=== PATIENT | male | born 1930 | race Caucasian/White ===

== ENCOUNTER 2016-09-24 11:07 | Emergency (ER) | payer OTHER ==
[~2016-09-24] VITALS: Ht 167.6 cm; Wt 80.2 kg
[~2016-09-24 11:07] MED LIST: ATOR-24 PO; CLOP1TAB15 PO; DSWCR TOP; DXY100 PO; FERR325T51 PO; FLUT0.15 NAE; HYG/25 PO; LISI2.5T5 PO; MESA1.2T PO; METO25TA3 PO
[2016-09-24 11:11] VITALS: TEMP 36.4; Ht 167.6 cm; Wt 80.2 kg
[2016-09-24] MEDS ORDERED: FERR1TAB13 PO (11:50)
[2016-09-24 13:17] LABS: BASO % 0.3 %; BASO ABS # 0.02 K/uL (0-0.2); COMPLETE YES; EOS % 2.3 %; HEMATOCRIT 41.4 % (42-52); IG% 0.1 %; LYMPH % 15.9 %; LYMPH ABS # 1.12 K/uL (1.2-3.4); MEAN CORPUSCULAR HEMOGLOBIN 30.7 pg (25-34); MEAN CORPUSCULAR HGB CONC 32.4 g/dl (32-36); MEAN PLATELET VOLUME 13.4 fL (7.4-10.4); MONO % 11.2 %; NEUT % 70.2 %; PLATELET COUNT 159 K/uL (130-400); RED BLOOD COUNT 4.36 M/uL (4.7-6.1); WHITE BLOOD COUNT 7.04 K/uL (4.8-10.8)
[2016-09-24 13:27] LABS: BLOOD UREA NITROGEN 31 mg/dl (7-18); BUN/CREATININE RATIO 15.5 (10-20); CALCIUM 8.4 mg/dl (8.5-10.1); CARBON DIOXIDE 28 mmol/L (21-32); CHLORIDE 106 mmol/L (98-107); GLUCOSE 124 mg/dl (70-99); SODIUM 143 mmol/L (136-145)
--- NOTE | 2016-09-24 13:32 | DIAGNOSTIC IMAGING REPORT ---
CHEST ONE VIEW PORTABLE CLINICAL HISTORY: Left-sided chest pain. Left shoulder pain. COMPARISON STUDY: 06/10/2016 FINDINGS: The heart is enlarged. There are postsurgical changes of midline sternotomy. There is a left subclavian dual-chamber central venous pacemaker present. There is mild interstitial thickening/edema similar to the prior study. There is no lobar consolidation.[ IMPRESSION: Cardiomegaly and stable mild interstitial thickening/edema. No evidence of lobar consolidation Electronically signed by: Ross Jackman M.D. 09/24/2016 1:31 PM Dictated Date/Time: 09/24/2016 1:30 PM
[2016-09-24 13:46] VITALS: BP 129/96; PULSE 92; O2SAT 97
--- NOTE | 2016-09-24 13:53 | EMERGENCY ROOM VISIT NOTE ---
History Report prepared by Catie: Shayan Mathur Under the Supervision of: Dr. Roxy Mejía M.D. First contact with patient: 12:37 Chief Complaint: CARDIAC ASSESSMENT Stated Complaint: LEFT SHOULDER AND NECK PAIN Nursing Triage Summary: Pt states he sat down in his chair and got pain in his left shoulder and neck approx 1 hour ago. States he took nitro and pain went away. Hx bypass History of Present Illness The patient is a 85 year old male who presents to the Emergency Room with complaints of an episode of chest pain occurring 2.5 hours ago. He notes the episode lasted about 2 to 3 minutes, and resolved upon taking medications. He denies having any abdominal pain. The patient reports seeing Dr. Gomez, his traffic workforce representative, a couple days ago, and states that everything was fine then. Source of History: patient Onset: 2.5 hours ago Position: chest Symptom Intensity: episode lasting 2 to 3 minutes Quality: other (chest pain) Timing: other (episode) Modifying Factors (Relieving): other (medications taken by patient) Associated Symptoms: No abdominal pain Review of Systems See HPI for pertinent positives & negatives. A total of 10 systems reviewed and were otherwise negative. Past Medical & Surgical Medical Problems: (1) CKD (chronic kidney disease) stage 3, GFR 30-59 ml/min (2) Congestive Heart Failure (3) Coron Atheroscler Nos Type Vessel, [place] Or Graft (4) CVA (cerebral vascular accident) (5) Diab Annelise Wo Compl, Type Ii Or Unspec Type, Not Uncntrld (6) Diabetes mellitus type II, controlled (7) Dyslipidemia (8) History of bladder cancer (9) History Of Tobacco Use (10) HTN (hypertension) (11) Hyperlipidemia Nec/Nos (12) Hypertension Nos (13) Hypertrophy Of Prostate (Benign) (14) Mal Joni Bladder-Post (15) Pacemaker (16) Paroxysmal atrial fibrillation Surgical Problems: (1) Aortocoronary Bypass (2) H/O cataract removal with insertion of prosthetic lens (3) History of arthroplasty of left knee (4) History of bladder surgery (5) History of inguinal hernia repair (6) History of open reduction and internal fixation (ORIF) procedure (7) History of tonsillectomy (8) Knee Joint Replacement Status (9) S/P AVR (10) S/P CABG x 4 (11) S/P rotator cuff repair (12) S/P TURP (status post transurethral resection of prostate) Family History Insignificant due to advanced age Social History Smoking Status: Former Smoker Alcohol Use: none Drug Use: none Marital Status: Occupation Status: retired Current/Historical Medications Scheduled Amiodarone Hcl (Cordarone), 200 MG PO BID Aspirin (Aspirin Ec), 81 MG PO DAILY Atorvastatin (Lipitor), 40 MG PO DAILY Chlorthalidone ([place]), 25 MG PO QAM Desonide 0.05% ([place]owen 0.05%), 1 APPLN TOP BID Ferrous Sulfate (Kp Ferrous Sulfate), 325 MG PO BID Hydrocortisone (Hydrocortisone), 1 APPLN TOP BID Lisinopril (Lisinopril), 2.5 MG PO DAILY Metoprolol Succ (Toprol Xl) (Toprol-Xl), 12.5 MG PO DAILY Scheduled PRN Acetaminophen (Tylenol), 650 MG PO Q4 PRN for Pain Alprostadil (Vasodilator) ([place]), 1 SUPP UR UD PRN for erectile dysfunction Nitroglycerin (Nitrostat), 0.4 MG UT UD PRN for Chest Pain Allergies Coded Allergies: Penicillins (Verified Allergy, Mild, ITCHING, 09/24/16) Physical Exam Vital Signs Date Time Temp Pulse Resp B/P Pulse Ox O2 Delivery O2 Flow Rate FiO2 09/24/16 13:46 92 18 129/96 97 09/24/16 13:07 92 22 131/78 93 Room Air 09/24/16 11:34 96 09/24/16 11:16 94 Room Air 09/24/16 11:11 36.4 99 19 129/77 94 Room Air Pain Rating (0-10): 0 Physical Exam CONSTITUTIONAL: Patient is in no acute distress. HEENT: No icterus, moist mucous membranes NECK: No meningismus, trachea is midline. CARDIOVASCULAR: Regular rate, normal perfusion RESPIRATORY: Unlabored breathing. Clear to auscultation. GASTROINTESTINAL: Non-tender GENITOURINARY: No flank tenderness MUSCULOSKELETAL: Full range of motion NEUROLOGIC: No acute gross focal deficits. PSYCHIATRIC: Normal affect SKIN: Normal for ethnicity. Medical Decision & Procedures ER Provider Diagnostic Interpretation: X-ray results as stated below per interpretation by me and the radiologist. CHEST ONE VIEW PORTABLE FINDINGS: The heart is enlarged. There are postsurgical changes of midline sternotomy. There is a left subclavian dual-chamber central venous pacemaker present. There is mild interstitial thickening/edema similar to the prior study. There is no lobar consolidation. IMPRESSION: Cardiomegaly and stable mild interstitial thickening/edema. No evidence of lobar consolidation Electronically signed by: Ross Jackman M.D. 09/24/2016 1:31 PM Dictated Date/Time: 09/24/2016 1:30 PM Laboratory Results 09/24/16 11:30 Red Blood Count 4.36, Mean Corpuscular Volume 95.0, Mean Corpuscular Hemoglobin 30.7, Mean Corpuscular Hemoglobin Concent 32.4, Mean Platelet Volume 13.4, Neutrophils (%) (Auto) 70.2, Lymphocytes (%) (Auto) 15.9, Monocytes (%) (Auto) 11.2, Eosinophils (%) (Auto) 2.3, Basophils (%) (Auto) 0.3, Neutrophils # (Auto ) 4.94, Lymphocytes # (Auto) 1.12, Monocytes # (Auto) 0.79, Eosinophils # (Auto ) 0.16, Basophils # (Auto) 0.02 09/24/16 11:30 Test 09/24/16 11:30 White Blood Count 7.04 K/uL (4.8-10.8) Red Blood Count 4.36 M/uL (4.7-6.1) Hemoglobin 13.4 g/dL (14.0-18.0) Hematocrit 41.4 % (42-52) Mean Corpuscular Volume 95.0 fL (80-100) Mean Corpuscular Hemoglobin 30.7 pg (25-34) Mean Corpuscular Hemoglobin Concent 32.4 g/dl (32-36) Platelet Count 159 K/uL (130-400) Mean Platelet Volume 13.4 fL (7.4-10.4) Neutrophils (%) (Auto) 70.2 % Lymphocytes (%) (Auto) 15.9 % Monocytes (%) (Auto) 11.2 % Eosinophils (%) (Auto) 2.3 % Basophils (%) (Auto) 0.3 % Neutrophils # (Auto) 4.94 K/uL (1.4-6.5) Lymphocytes # (Auto) 1.12 K/uL (1.2-3.4) Monocytes # (Auto) 0.79 K/uL (0.11-0.59) Eosinophils # (Auto) 0.16 K/uL (0-0.5) Basophils # (Auto) 0.02 K/uL (0-0.2) RDW Standard Deviation 51.6 fL (36.4-46.3) RDW Coefficient of Variation 15.0 % (11.5-14.5) Immature Granulocyte % (Auto) 0.1 % Immature Granulocyte # (Auto) 0.01 K/uL (0.00-0.02) Anion Gap 9.0 mmol/L (3-11) Est Creatinine Clear Calc Drug Dose 25.9 ml/min Estimated GFR () 33.8 Estimated GFR (Non- 29.1 BUN/Creatinine Ratio 15.5 (10-20) Calcium Level 8.4 mg/dl (8.5-10.1) Troponin I < 0.015 ng/ml (0-0.045) Labs reviewed by ED physician. ED Course 1245: Past medical records reviewed. The patient was evaluated in room B4B. A complete history and physical examination was performed. 1340: Upon reexamination the patient is doing well. I discussed results and treatment plan with the patient. He verbalizes agreement and understanding. The patient is ready for discharge. Medical Decision Differentials include musculoskeletal pain, and heart disease. 85-year-old presents into the emergency room for less than 10 minutes of left- sided chest discomfort radiating to his neck now completely resolved. He has a history of coronary artery disease a low he saw his traffic workforce representative for routine appointment earlier this week which time everything was felt to be normal. Chest x-ray, EKG and troponin within normal limits. Patient was comfortable and remained without any symptoms during his emergency course prior to discharge. Impression Primary Impression: Precordial chest pain Scribe Attestation The scribe's documentation has been prepared under my direction and personally reviewed by me in its entirety. I confirm that the note above accurately reflects all work, treatment, procedures, and medical decision making performed by me. Departure Information Dispostion Home / Self-Care Referrals Luis Gomez D.O. (PCP) Forms IMPORTANT VISIT INFORMATION Patient Instructions Chest Pain - [facility], [facility]
[2016-12-17] MEDS ORDERED: NTRGSL/4 UT (06:56)
[2016-12-17] MEDS ORDERED: HYDCR25 TOP (06:59)
[2016-12-17] MEDS ORDERED: ASPI81TA28 PO (07:01)
[2016-12-17] MEDS ORDERED: FERR325T PO (15:10)
== END 2016-09-24 13:47 | disposition home or self-care (01) ==
LOC: C.EDB 11:09
DX: R07.2 Precordial pain (principal); I12.9 Hypertensive chronic kidney disease with stage 1 through stage 4 chronic kidney disease, or unspecified chronic kidney disease; N18.3 Chronic kidney disease, stage 3 (moderate); I25.10 Atherosclerotic heart disease of native coronary artery without angina pectoris; I48.0 Paroxysmal atrial fibrillation; E11.22 Type 2 diabetes mellitus with diabetic chronic kidney disease; E78.5 Hyperlipidemia, unspecified; Z86.73 Personal history of transient ischemic attack (TIA), and cerebral infarction without residual deficits; Z85.51 Personal history of malignant neoplasm of bladder; Z87.891 Personal history of nicotine dependence; Z95.1 Presence of aortocoronary bypass graft; Z90.89 Acquired absence of other organs; Z96.659 Presence of unspecified artificial knee joint; Z90.79 Acquired absence of other genital organ(s); Z98.890 Other specified postprocedural states; Z79.82 Long term (current) use of aspirin; Z79.899 Other long term (current) drug therapy

== ENCOUNTER 2016-11-04 19:22 | Inpatient (IN) | payer OTHER ==
[~2016-11-04] VITALS: Ht 167.6 cm; Wt 74.6 kg
[~2016-11-04 19:22] MED LIST changes: -CLOP1TAB15 PO; -DXY100 PO; +FERR1TAB13 PO; -FERR325T51 PO; -FLUT0.15 NAE; -MESA1.2T PO
--- NOTE | 2016-11-04 20:20 | DIAGNOSTIC IMAGING REPORT ---
CHEST ONE VIEW PORTABLE CLINICAL HISTORY: Weakness COMPARISON STUDY: September 24, 2016 FINDINGS: The heart is enlarged. There is a left subclavian dual-chamber central venous pacemaker present. There is mild interstitial thickening. There is no focal pulmonary consolidation. There are no significant pleural effusions.[ IMPRESSION: Cardiomegaly and mild interstitial thickening/edema. No evidence of focal pulmonary consolidation Electronically signed by: Ross Jackman M.D. 11/04/2016 8:18 PM Dictated Date/Time: 11/04/2016 8:17 PM
[2016-11-04 20:53] LABS: MEAN CORPUSCULAR HGB CONC 32.4 g/dl (32-36)
[2016-11-04 21:01] LABS: HEMATOCRIT 41.4 % (42-52); MEAN CELL VOLUME 92.4 fL (80-100); MEAN CORPUSCULAR HEMOGLOBIN 29.9 pg (25-34); RED BLOOD COUNT 4.48 M/uL (4.7-6.1); WHITE BLOOD COUNT 6.39 K/uL (4.8-10.8)
[2016-11-04 21:04] LABS: INR 2.7 (0.9-1.1); PARTIAL THROMBOPLASTIN RATIO 1.3; PROTHROMBIN TIME (PATIENT) 30.3 SECONDS (9.0-12.0)
[2016-11-04 21:12] LABS: BUN/CREATININE RATIO 20.3 (10-20); CREATININE 2.3 mg/dl (0.60-1.40); MAGNESIUM 2.1 mg/dl (1.8-2.4); POTASSIUM 3.6 mmol/L (3.5-5.1)
[2016-11-04 21:22] LABS: CKMB/CK RATIO 2.7 (0-3.0); THYROID STIMULATING HORMONE 5.22 uIu/ml (0.300-4.500)
[2016-11-04] MEDS ORDERED: FURO-85 PO (21:27)
[2016-11-04] MEDS ORDERED: POTA20TA16 PO (21:27)
[2016-11-04] MEDS ORDERED: WARF5TAB7 PO (21:27)
[2016-11-04 21:30] LABS: BASO % 0.2 %; BASO ABS # 0.01 K/uL (0-0.2); COMPLETE YES; EOS % 3.1 %; IG% 0.2 %; LYMPH % 16.3 %; LYMPH ABS # 1.04 K/uL (1.2-3.4); MEAN PLATELET VOLUME 13.6 fL (7.4-10.4); MONO % 11.6 %; NEUT % 68.6 %; PLATELET COUNT 140 K/uL (130-400); PLT ESTIMATE NORMAL
[2016-11-04] MEDS ORDERED: POTASSIUM CHLORIDE 10 MEQ TABCR PO STA (21:48)
[2016-11-04] MEDS ORDERED: FUROSEMIDE INJ 60 MG in SYRINGE 0 ML IV STA (22:20)
[2016-11-04] MEDS ORDERED: FUROSEMIDE 40 MG/4 ML VIAL IV STA (22:27)
[2016-11-04] MEDS ORDERED: AMIODARONE 200 MG TAB PO STA (22:28)
[2016-11-04] MEDS ORDERED: NITROGLYCERIN 0.4 MG SL PER TAB CHARGE SL PRN (22:30)
[2016-11-04] MEDS ORDERED: ACETAMINOPHEN 325 MG TAB PO PRN (22:30)
[2016-11-04] MEDS ORDERED: TRAMADOL HCL 50 MG TAB PO PRN (22:30)
[2016-11-04] MEDS ORDERED: ONDANSETRON INJ 2 MG/ML 2 ML VIAL IV PRN (22:30)
[2016-11-04] MEDS ORDERED: NITROGLYCERIN 0.4 MG SL PER TAB CHARGE UT PRN (22:30)
[2016-11-04] MEDS ORDERED: LEVALBUTEROL/IPRATROPIUM NEB INH PRN (22:30)
[2016-11-04] MEDS ORDERED: HYDROmorphone INJ 0.5 MG/0.5 ML SYR IV PRN (22:30)
[2016-11-04 22:41] LABS: URINE APPEARANCE CLEAR (CLEAR); URINE BILIRUBIN NEG (NEG); URINE COLOR YELLOW; URINE NITRITE NEG (NEG); URINE SPECIFIC GRAVITY 1.014 (1.000-1.030); UROBILINOGEN NEG (NEG); ZZUR CULT IF INDIC CLEAN CATCH NO
[2016-11-04 22:44] LABS: MANUAL MICROSCOPIC REQUIRED? NO; REVIEW REQ? NO
[2016-11-04] MEDS ORDERED: LEVALBUTEROL 1.25MG/0.5ML NEB INH PRN (23:00)
[2016-11-04] MEDS ORDERED: IPRATROPIUM BROMIDE NEB SOLN 0.02% 2.5 ML VIAL INH PRN (23:00)
[2016-11-05] VITALS (8 sets, daily range): BP systolic 109–138; BP diastolic 66–85; PULSE 70–91; TEMP 36.3–36.7; O2SAT 91–97; Ht 167.6 cm; Wt 74.6 kg
--- NOTE | 2016-11-05 00:33 | HISTORY & PHYSICAL EXAMINATION ---
DATE OF ADMISSION: 11/04/2016 PRIMARY CARE DOCTOR: Dr. Bañuelos History was obtained from the patient's records. CHIEF COMPLAINT: Sent by heart doctor. HISTORY OF PRESENT ILLNESS: Medical history is significant for chronic diastolic heart failure (EF 55-60%), CAD status post CABG, history of TAVR, atrial fibrillation/sick sinus syndrome sp PPM, history of CVA as per records, BPH status post surgery, bladder cancer status post surgery, chronic renal insufficiency (baseline creatinine of 1.7-2), chronic anemia (baseline hemoglobin of 10), past tobacco abuse, history of ulcerative colitis as per records, DM2, diet controlled. chronic thrombocytopenia. Recent confinement in May 2016 for viral URTI. As per records, in the last 2 weeks, the patient is developing lower extremity swelling, weight gain and some pulmonary congestion. Low dose Lasix was initiated and tolerated. PX accompanied by friend to the [employer] admin's office today. Px's friend notes some dyspnea on exertion. Patient was complaining of intermittent chest pain which the patient currently denies. Persistent bilateral leg swelling. Concerns about confusion w/ medications in the last few weeks. Patient lives alone. Home health to be arranged. Claims to be compliant with home meds and denies dietary indiscretion. Patient was sent to the Emergency Room for IV diuresis and cardiac work-up. . MEDICAL HISTORY: As above. A 2D echo from May 2016 showed normal LV size, LVH, EF 55-60% SURGERIES: He has had CABG, bladder tumor surgery, TAVR, PPM, tonsillectomy, knee surgery, shoulder surgery and hernia surgery. HOME MEDICATIONS: Include; ferrous sulfate, Lasix, hydrocortisone, lisinopril, Lialda Topral XL, Nitrostat, potassium Coumadin, amiodarone, aspirin, Tylenol, Lipitor ALLERGIES: TO PENICILLIN. FAMILY HISTORY: Heart disease. PERSONAL AND SOCIAL HISTORY: Past tobacco abuse. No chronic intake of alcoholic beverages. production trainer REVIEW OF SYSTEMS: As per HPI, all other ROS negative. PHYSICAL EXAMINATION: VITAL SIGNS: Blood pressure was noted to be 122/72 pulse rate 88, respiratory rate 24, temperature 36.6 and sats 92 on room air. GENERAL: Noted to be comfortable, in no respiratory distress, occasionally speaks in phrases to catch his breath. SKIN: Pallor. HEENT: Pale palpebral conjunctivae. Dry mucosa. NECK: Short neck. JVD not assessed. CHEST: Decreased breath sounds. HEART: Regular rate and rhythm. ABDOMEN: Soft. EXTREMITIES: Bilateral lower extremity edema, no tenderness. NEUROLOGIC: No gross focality. LABORATORIES: Hemoglobin was noted to be 13.4, hematocrit 41, white cell count 6.3, platelets 140. Sodium 140 chloride 102, CO2 30, BUN 47 creatinine 2.3, glucose 121. Troponin 0.2. INR was noted to be 2.7. Hg A1c 6.3 (05/2016) EKG; afib with PVCs. Chest x-ray; some congestion. ASSESSMENT: 1. Decompensated heart failure subacute symptoms after outpatient diuretic dose adjustment compliance problems 2 to functional disability versus beginning cardiorenal syndrome. (ARF on CRI) 2. Hypertension, stable 3. Sick sinus syndrome status post pacemaker. rate controlled AF/paced rhythm at the ER, INR therapeutic. 4. CAD sp CABG 5. hx bioprosthetic TAVR 6. Bladder cancer status post surgery. 7. DM2, diet controlled, well controlled as recent HgA1c on file px actually disputes diagnosis from outpx records 8. Past tobacco abuse. 9, hx CVA as per records 10. chronic thrombocytopenia PLAN: PCU. Lasix one dose now. Follow renal function. continue home BB strict IOs, daily weights, CHF education Further eval/mx as per Cardiology May need Nephrology consultation during admission if w/ progression of kidney dysfunction ISS BG goal 140-180 px due for HgA1c check PT/OT evaluation. DVT prophylaxis, Coumadin. INR 2-3. Full code. Patient requests that his refoca-ik-ajp, Ms. Kristie Bills be updated for important decisions regarding his care. ISAAC
[2016-11-05] MEDS ORDERED: POTASSIUM CHLORIDE 10 MEQ TABCR PO ONE (01:00)
--- NOTE | 2016-11-05 01:59 | EMERGENCY ROOM VISIT NOTE ---
History Report prepared by Catie: Denilson Deluna Under the Supervision of: Dr. Melo Estrada M.D. First contact with patient: 19:57 Chief Complaint: SWELLING TO EXTREMITY Stated Complaint: B/L LEG SWELLING, CHECK FOR INFECTION History of Present Illness The patient is a 85 year old male who presents to the Emergency Room with complaints of constant lower extremity swelling for the past few days. The patient states that he was at Dr. Gomez, Cardiology, and he wanted the patient to come in for evaluation. The patient has a history of a pacemaker, strokes, and he is on Coumadin. The patient states that he is planning for cardioversion. Additionally, the patient's friend states that when the patient bends over or exerts himself, his breathing is worsened. The patient denies taking any oxygen at home. Pt denies LOC, headache, fevers, chills, diaphoresis , visual changes, neck pain, chest pain, nausea, vomiting, abdominal pain, back pain, melena, hematochezia, urinary symptoms, numbness, weakness, lymphadenopathy, rash, or other complaints. Source of History: patient, friend Onset: few days ago Position: leg (bilateral) Quality: other (swelling) Timing: constant Modifying Factors (Worsening): exertion Associated Symptoms: + SOB Review of Systems See HPI for pertinent positives and negatives. A total of ten systems were reviewed and were otherwise negative. Past Medical & Surgical Medical Problems: (1) CHF exacerbation (2) CKD (chronic kidney disease) stage 3, GFR 30-59 ml/min (3) Congestive Heart Failure (4) Coron Atheroscler Nos Type Vessel, [place] Or Graft (5) CVA (cerebral vascular accident) (6) Diab Annelise Wo Compl, Type Ii Or Unspec Type, Not Uncntrld (7) Diabetes mellitus type II, controlled (8) Dyslipidemia (9) History of bladder cancer (10) History Of Tobacco Use (11) HTN (hypertension) (12) Hyperlipidemia Nec/Nos (13) Hypertension Nos (14) Hypertrophy Of Prostate (Benign) (15) [place]i Bladder-Post (16) Pacemaker (17) Paroxysmal atrial fibrillation Surgical Problems: (1) Aortocoronary Bypass (2) H/O cataract removal with insertion of prosthetic lens (3) History of arthroplasty of left knee (4) History of bladder surgery (5) History of inguinal hernia repair (6) History of open reduction and internal fixation (ORIF) procedure (7) History of tonsillectomy (8) Knee Joint Replacement Status (9) S/P AVR (10) S/P CABG x 4 (11) S/P rotator cuff repair (12) S/P TURP (status post transurethral resection of prostate) Family History Insignificant due to advanced age Social History Smoking Status: Never Smoker Alcohol Use: none Drug Use: none Marital Status: Occupation Status: retired Current/Historical Medications Scheduled Amiodarone Hcl (Cordarone), 200 MG PO BID Aspirin (Aspirin Ec), 81 MG PO DAILY Atorvastatin (Lipitor), 40 MG PO DAILY Desonide 0.05% ([place] 0.05%), 1 APPLN TOP BID Ferrous Sulfate (Kp Ferrous Sulfate), 325 MG PO BID Furosemide (Lasix), 40 MG PO DAILY Hydrocortisone (Hydrocortisone), 1 APPLN TOP BID Lisinopril (Lisinopril), 2.5 MG PO DAILY Mesalamine (Lialda), 1.2 GM PO DIRECTED Metoprolol Succ (Toprol Xl) (Toprol-Xl), 50 MG PO BID Potassium Ext Rel (Klor-Con), 20 MEQ PO DAILY Warfarin Sod ([place]), 2.5 MG PO DAILY Scheduled PRN Acetaminophen (Tylenol), 650 MG PO Q4 PRN for Pain Alprostadil (Vasodilator) ([place]), 1 SUPP UR UD PRN for erectile dysfunction Nitroglycerin (Nitrostat), 0.4 MG UT UD PRN for Chest Pain Allergies Coded Allergies: Penicillins (Verified Allergy, Mild, ITCHING, 11/04/16) Physical Exam Vital Signs Date Time Temp Pulse Resp B/P Pulse Ox O2 Delivery O2 Flow Rate FiO2 11/04/16 21:11 90 20 126/76 94 Room Air 11/04/16 20:37 93 11/04/16 20:37 93 Room Air 11/04/16 20:25 83 11/04/16 19:37 36.6 88 24 126/72 92 Room Air Physical Exam GENERAL: Awake, alert, tired-appearing, in no distress HENT: Normocephalic, atraumatic. Oropharynx unremarkable. EYES: Normal conjunctiva. Sclera non-icteric. NECK: Supple. No nuchal rigidity. FROM. No JVD. RESPIRATORY: Clear to auscultation. CARDIAC: Regular rate, Irregular rhythm. Extremities warm and well perfused. Pulses equal. ABDOMEN: Soft, non-distended. No tenderness to palpation. No rebound or guarding. No masses. RECTAL: Deferred. MUSCULOSKELETAL: Chest examination reveals no tenderness. The back is symmetrical on inspection without obvious abnormality. There is no CVA tenderness to palpation. No joint edema. LOWER EXTREMITIES: 3+ bilateral lower extremity edema. No discoloration. NEURO: Normal sensorium. No sensory or motor deficits noted. SKIN: No rash or jaundice noted. Medical Decision & Procedures ER Provider Diagnostic Interpretation: X-ray: Per my interpretation, radiologist review. CHEST ONE VIEW PORTABLE CLINICAL HISTORY: Weakness COMPARISON STUDY: September 24, 2016 FINDINGS: The heart is enlarged. There is a left subclavian dual-chamber central venous pacemaker present. There is mild interstitial thickening. There is no focal pulmonary consolidation. There are no significant pleural effusions.[ IMPRESSION: Cardiomegaly and mild interstitial thickening/edema. No evidence of focal pulmonary consolidation Electronically signed by: Ross Jackman M.D. 11/04/2016 8:18 PM Dictated Date/Time: 11/04/2016 8:17 PM Laboratory Results 11/04/16 20:38 Red Blood Count 4.48, Mean Corpuscular Volume 92.4, Mean Corpuscular Hemoglobin 29.9, Mean Corpuscular Hemoglobin Concent 32.4, Mean Platelet Volume 13.6, Neutrophils (%) (Auto) 68.6, Lymphocytes (%) (Auto) 16.3, Monocytes (%) (Auto) 11.6, Eosinophils (%) (Auto) 3.1, Basophils (%) (Auto) 0.2, Neutrophils # (Auto ) 4.39, Lymphocytes # (Auto) 1.04, Monocytes # (Auto) 0.74, Eosinophils # (Auto ) 0.20, Basophils # (Auto) 0.01 11/04/16 20:38 Test 11/04/16 20:38 White Blood Count 6.39 K/uL (4.8-10.8) Red Blood Count 4.48 M/uL (4.7-6.1) Hemoglobin 13.4 g/dL (14.0-18.0) Hematocrit 41.4 % (42-52) Mean Corpuscular Volume 92.4 fL (80-100) Mean Corpuscular Hemoglobin 29.9 pg (25-34) Mean Corpuscular Hemoglobin Concent 32.4 g/dl (32-36) Platelet Count 140 K/uL (130-400) Mean Platelet Volume 13.6 fL (7.4-10.4) Neutrophils (%) (Auto) 68.6 % Lymphocytes (%) (Auto) 16.3 % Monocytes (%) (Auto) 11.6 % Eosinophils (%) (Auto) 3.1 % Basophils (%) (Auto) 0.2 % Neutrophils # (Auto) 4.39 K/uL (1.4-6.5) Lymphocytes # (Auto) 1.04 K/uL (1.2-3.4) Monocytes # (Auto) 0.74 K/uL (0.11-0.59) Eosinophils # (Auto) 0.20 K/uL (0-0.5) Basophils # (Auto) 0.01 K/uL (0-0.2) RDW Standard Deviation 49.7 fL (36.4-46.3) RDW Coefficient of Variation 14.6 % (11.5-14.5) Immature Granulocyte % (Auto) 0.2 % Immature Granulocyte # (Auto) 0.01 K/uL (0.00-0.02) Platelet Estimate NORMAL Prothrombin Time 30.3 SECONDS (9.0-12.0) Prothromb Time International Ratio 2.7 (0.9-1.1) Activated Partial Thromboplast Time 34.2 SECONDS (21.0-31.0) Partial Thromboplastin Ratio 1.3 Anion Gap 9.0 mmol/L (3-11) Est Creatinine Clear Calc Drug Dose 23.2 ml/min Estimated GFR () 28.5 Estimated GFR (Non- 24.6 BUN/Creatinine Ratio 20.3 (10-20) Calcium Level 8.0 mg/dl (8.5-10.1) Magnesium Level 2.1 mg/dl (1.8-2.4) Total Bilirubin 0.5 mg/dl (0.2-1) Direct Bilirubin 0.2 mg/dl (0-0.2) Aspartate Amino Transf (AST/SGOT) 47 U/L (15-37) Alanine Aminotransferase (ALT/SGPT) 64 U/L (12-78) Alkaline Phosphatase 152 U/L (45-117) Total Creatine Kinase 110 U/L (39-308) Creatine Kinase MB 3.0 ng/ml (0.5-3.6) Creatine Kinase MB Ratio 2.7 (0-3.0) Troponin I 0.022 ng/ml (0-0.045) Pro-B-Type Natriuretic Peptide 9116 pg/ml (0-1800) Total Protein 7.0 gm/dl (6.4-8.2) Albumin 3.1 gm/dl (3.4-5.0) Thyroid Stimulating Hormone (TSH) 5.220 uIu/ml (0.300-4.500) Free Thyroxine 1.44 ng/dl (0.80-1.60) Laboratory results reviewed by me Medications Administered Medications (Trade) Dose Ordered Sig/Avinash Route Start Time Stop Time Status Last Admin Dose Admin Potassium Chloride (Klor-Con M10) 40 meq NOW STAT PO 11/04/16 21:48 11/04/16 22:03 DC 11/04/16 22:33 40 MEQ ECG Indication: other (Lower extremity) Rate (beats per minute): 81 Rhythm: atrial fibrillation, other (Paced complexes) Findings: RBBB, no acute ischemic change ED Course 2028: The patient was evaluated in room A3. A complete history and physical exam was performed. 2144: I discussed the patient's case with Dr. Garner. He is going to evaluate the patient for further treatment 2152: I reevaluated the patient, and he was resting comfortably Medical Decision Triage Nursing notes reviewed. The patient's presentation and history were concerning for dyspnea and leg swelling. Etiologies such as CHF, cardiac ischemia, pulmonary embolism, pneumothorax, musculoskeletal, infections, gastrointestinal, pneumonia, COPD, reactive airway disease,as well as others were entertained. The patient was evaluated. He was in good spirits. Blood work revealed a mild anemia and elevated creatinine of 2.3. BNP was markedly elevated concerning for CHF. His cardiac markers were negative. ECG reveals A. fib. Chest imaging is as above. Consultation was made with internal medicine for further management. The chart was completed utilizing [employer] voice recognition software. Grammatical errors, random word insertions, pronoun errors, and incomplete sentences are an occasional consequence of this system due to software limitations, ambient noise, and hardware issues. Any formal questions or concerns about the content, text, or information contained within the body of this dictation should be directly addressed to the physician for clarification. Consults Time Called: 2123 Consulting Physician: Dr. Garner Returned Call: 2144 I discussed the patient's case with Dr. Garner. He is going to evaluate the patient for further treatment Impression Primary Impression: Dyspnea Additional Impressions: Lower extremity edema CHF exacerbation Scribe Attestation The scribe's documentation has been prepared under my direction and personally reviewed by me in its entirety. I confirm that the note above accurately reflects all work, treatment, procedures, and medical decision making performed by me. Departure Information Dispostion Being Evaluated By Hospitalist Referrals Luis Gomez D.O. (PCP) Patient Instructions [facility] Problem Qualifiers
[2016-11-05] MEDS ORDERED: DEXTROSE 50% 50 ML SYR IV PRN (04:00)
[2016-11-05] MEDS ORDERED: GLUCOSE 40% GEL 15 GM TUBE PO PRN (04:00)
[2016-11-05] MEDS ORDERED: GLUCOSE 10 TABS/TUBE PO PRN (04:00)
[2016-11-05] MEDS ORDERED: GLUCAGON FOR INJ 1 MG VIAL SQ PRN (04:00)
[2016-11-05] MEDS: INSULIN ASPART 100 UNITS/ML 3 ML PEN SC SCH ×4 (07:00→20:42)
[2016-11-05 07:16] LABS: MEAN CORPUSCULAR HGB CONC 32.1 g/dl (32-36)
[2016-11-05 07:21] LABS: INR 2.9 (0.9-1.1); PROTHROMBIN TIME (PATIENT) 32.4 SECONDS (9.0-12.0)
[2016-11-05 07:44] LABS: BUN/CREATININE RATIO 23.8 (10-20); CALCIUM 8.8 mg/dl (8.5-10.1); CREATININE 2.1 mg/dl (0.60-1.40); POTASSIUM 3.8 mmol/L (3.5-5.1)
[2016-11-05 07:46] LABS: HEMATOCRIT 41.7 % (42-52); MEAN CELL VOLUME 93.1 fL (80-100); MEAN CORPUSCULAR HEMOGLOBIN 29.9 pg (25-34); RED BLOOD COUNT 4.48 M/uL (4.7-6.1); WHITE BLOOD COUNT 5.88 K/uL (4.8-10.8)
[2016-11-05] MEDS: ASPIRIN 81 MG ECTAB PO SCH (08:27)
[2016-11-05] MEDS: METOPROLOL SUCC 25MG EXT REL TAB PO SCH ×2 (08:28→20:36)
[2016-11-05] MEDS: FERROUS SULFATE 325 MG TAB PO SCH ×2 (08:28→20:35)
[2016-11-05] MEDS: ATORVASTATIN 20 MG TAB PO SCH (08:28)
[2016-11-05] MEDS: AMIODARONE 200 MG TAB PO SCH ×2 (08:28→20:36)
[2016-11-05 09:11] LABS: ESTIMATED AVERAGE GLUCOSE 146 mg/dl; HA1C FLAG Normal (Normal)
--- NOTE | 2016-11-05 09:14 | Clinical Documentation Query ---
NICHELLE Hernandez : CLINICAL DOCUMENTATION QUERY Patient is an 85 year old male admitted for the evaluation and treatment of "decompensated heart failure". Noted PMH includes diastolic heart failure, with an echocardiogram from 06/02 demonstrating normal biventricular systolic function. Please explicitly specify the type of acute heart failure in your patient. This cannot be assumed by a professional associate programmer analyst to be an exacerbation of a chronic condition. In your clinical opinion is this patient being managed for: (x ) Acute on chronic diastolic congestive heart failure ( ) Other explanation of clinical findings (Please Explain) ( ) Unable to determine (Please Define) ( ) Need to Discuss ( ) Not Agree The medical record reflects the following clinical findings, treatment, and risk factors. Clinical Indicators: As above Treatment: PCU with telemetry, IV Lasix, cardiology consultation, serial chemistries, I/O, daily weights, CHF education. Risk Factors: Age, DM, hypertension, CAD, arrhythmia Please clarify and document your clinical opinion in the progress notes and discharge summary. Terms such as "probable", "suspected", "likely", "questionable", "possible", or "still to be ruled out" are acceptable. IF IN AGREEMENT, YOU MUST DOCUMENT ABOVE DIAGNOSTIC STATEMENT IN DAILY PROGRESS NOTES AND DISCHARGE SUMMARY. This document is not part of the patient's record. Thank You, Shayan Massey, MOLLY [phone]
--- NOTE | 2016-11-05 10:28 | Progress Note ---
Medicine Progress Note Date & Time of Visit: Nov 05, 2016 at 10:11. Subjective 85 yo M with a significant h/o heart disease and heart failure admitted to the hospital as a direct admission from the Cardiology office for stricter management of acute HF and anticoagulation in preparation for poss ANANDA/CV for new onset afib/flutter. Last 24: -Lasix 60mg IV x once last night with 1700cc out overnight -Denies SOB, CP -reports some swelling in his legs but denies any weight gain at home -states his baseline dry weight is 161 lbs. Objective Last 8 Hrs Date Time Temp Pulse Resp B/P Pulse Ox O2 Delivery O2 Flow Rate FiO2 11/05/16 08:00 Room Air 11/05/16 07:43 36.7 77 18 125/76 97 Room Air 11/05/16 04:00 36.6 89 18 124/73 93 Room Air 11/05/16 04:00 Room Air Physical Exam: GEN: WNWD, in no acute distress, alert and appropriate, no conversational dyspnea. HEENT: NC/AT, pupils are equal, normal sclerae CARDIO: reg rate, S1/2 heard without m/g/r, +external jugular venous distension LUNGS: CTA bilaterally, no crackles, rales or wheezes, good diaphragmatic excursion +diminished breath sounds bilaterally ABD: soft, non-tender, non-distended, no rebound or guarding, BS+ EXTREMITY: 2+ pitting edema to mid shins bilaterally, warm and well perfused. NEURO: CN 2-12 grossly intact, sensation intact throughout, no gross focal deficits. MUSC: moves all extremities equally SKIN: warm and dry Laboratory Results: 11/05/16 06:52 Red Blood Count 4.48, Mean Corpuscular Volume 93.1, Mean Corpuscular Hemoglobin 29.9, Mean Corpuscular Hemoglobin Concent 32.1 11/05/16 06:52 Test 11/04/16 20:38 11/04/16 22:25 11/05/16 06:13 11/05/16 06:52 White Blood Count 6.39 K/uL (4.8-10.8) 5.88 K/uL (4.8-10.8) Red Blood Count 4.48 M/uL (4.7-6.1) 4.48 M/uL (4.7-6.1) Hemoglobin 13.4 g/dL (14.0-18.0) 13.4 g/dL (14.0-18.0) Hematocrit 41.4 % (42-52) 41.7 % (42-52) Mean Corpuscular Volume 92.4 fL (80-100) 93.1 fL (80-100) Mean Corpuscular Hemoglobin 29.9 pg (25-34) 29.9 pg (25-34) Mean Corpuscular Hemoglobin Concent 32.4 g/dl (32-36) 32.1 g/dl (32-36) Platelet Count 140 K/uL (130-400) Mean Platelet Volume 13.6 fL (7.4-10.4) Neutrophils (%) (Auto) 68.6 % Lymphocytes (%) (Auto) 16.3 % Monocytes (%) (Auto) 11.6 % Eosinophils (%) (Auto) 3.1 % Basophils (%) (Auto) 0.2 % Neutrophils # (Auto) 4.39 K/uL (1.4-6.5) Lymphocytes # (Auto) 1.04 K/uL (1.2-3.4) Monocytes # (Auto) 0.74 K/uL (0.11-0.59) Eosinophils # (Auto) 0.20 K/uL (0-0.5) Basophils # (Auto) 0.01 K/uL (0-0.2) Immature Granulocyte % (Auto) 0.2 % Immature Granulocyte # (Auto) 0.01 K/uL (0.00-0.02) Platelet Estimate NORMAL Activated Partial Thromboplast Time 34.2 SECONDS (21.0-31.0) Partial Thromboplastin Ratio 1.3 Magnesium Level 2.1 mg/dl (1.8-2.4) Total Bilirubin 0.5 mg/dl (0.2-1) Direct Bilirubin 0.2 mg/dl (0-0.2) Aspartate Amino Transf (AST/SGOT) 47 U/L (15-37) Alanine Aminotransferase (ALT/SGPT) 64 U/L (12-78) Alkaline Phosphatase 152 U/L (45-117) Total Creatine Kinase 110 U/L (39-308) Creatine Kinase MB 3.0 ng/ml (0.5-3.6) Creatine Kinase MB Ratio 2.7 (0-3.0) Pro-B-Type Natriuretic Peptide 9116 pg/ml (0-1800) Total Protein 7.0 gm/dl (6.4-8.2) Albumin 3.1 gm/dl (3.4-5.0) Thyroid Stimulating Hormone (TSH) 5.220 uIu/ml (0.300-4.500) Free Thyroxine 1.44 ng/dl (0.80-1.60) Urine Color YELLOW Urine Appearance CLEAR (CLEAR) Urine pH 6.0 (4.5-7.5) Urine Specific [place] 1.014 (1.000-1.030) Urine Protein NEG (NEG) Urine Glucose (UA) NEG (NEG) Urine Ketones NEG (NEG) Urine Occult Blood NEG (NEG) Urine Nitrite NEG (NEG) Urine Bilirubin NEG (NEG) Urine Urobilinogen NEG (NEG) Urine Leukocyte Esterase NEG (NEG) Bedside Glucose 106 mg/dl (70-99) RDW Standard Deviation 49.9 fL (36.4-46.3) RDW Coefficient of Variation 14.7 % (11.5-14.5) Prothrombin Time 32.4 SECONDS (9.0-12.0) Prothromb Time International Ratio 2.9 (0.9-1.1) Anion Gap 8.0 mmol/L (3-11) Est Creatinine Clear Calc Drug Dose 24.6 ml/min Estimated GFR () 31.8 Estimated GFR (Non- 27.5 BUN/Creatinine Ratio 23.8 (10-20) Estimated Average Glucose 146 mg/dl Hemoglobin A1c 6.7 % (4.5-5.6) Calcium Level 8.8 mg/dl (8.5-10.1) Troponin I 0.022 ng/ml (0-0.045) Last 24 Hours Test 11/04/16 20:38 11/04/16 22:25 11/05/16 06:13 11/05/16 06:52 White Blood Count 6.39 K/uL 5.88 K/uL Red Blood Count 4.48 M/uL 4.48 M/uL Hemoglobin 13.4 g/dL 13.4 g/dL Hematocrit 41.4 % 41.7 % Mean Corpuscular Volume 92.4 fL 93.1 fL Mean Corpuscular Hemoglobin 29.9 pg 29.9 pg Mean Corpuscular Hemoglobin Concent 32.4 g/dl 32.1 g/dl Platelet Count 140 K/uL Mean Platelet Volume 13.6 fL Neutrophils (%) (Auto) 68.6 % Lymphocytes (%) (Auto) 16.3 % Monocytes (%) (Auto) 11.6 % Eosinophils (%) (Auto) 3.1 % Basophils (%) (Auto) 0.2 % Neutrophils # (Auto) 4.39 K/uL Lymphocytes # (Auto) 1.04 K/uL Monocytes # (Auto) 0.74 K/uL Eosinophils # (Auto) 0.20 K/uL Basophils # (Auto) 0.01 K/uL RDW Standard Deviation 49.7 fL 49.9 fL RDW Coefficient of Variation 14.6 % 14.7 % Immature Granulocyte % (Auto) 0.2 % Immature Granulocyte # (Auto) 0.01 K/uL Platelet Estimate NORMAL Prothrombin Time 30.3 SECONDS 32.4 SECONDS Prothromb Time International Ratio 2.7 2.9 Activated Partial Thromboplast Time 34.2 SECONDS Partial Thromboplastin Ratio 1.3 Sodium Level 141 mmol/L 141 mmol/L Potassium Level 3.6 mmol/L 3.8 mmol/L Chloride Level 102 mmol/L 102 mmol/L Carbon Dioxide Level 30 mmol/L 31 mmol/L Anion Gap 9.0 mmol/L 8.0 mmol/L Blood Urea Nitrogen 47 mg/dl 50 mg/dl Creatinine 2.30 mg/dl 2.10 mg/dl Est Creatinine Clear Calc Drug Dose 23.2 ml/min 24.6 ml/min Estimated GFR () 28.5 31.8 Estimated GFR (Non- 24.6 27.5 BUN/Creatinine Ratio 20.3 23.8 Random Glucose 121 mg/dl 98 mg/dl Calcium Level 8.0 mg/dl 8.8 mg/dl Magnesium Level 2.1 mg/dl Total Bilirubin 0.5 mg/dl Direct Bilirubin 0.2 mg/dl Aspartate Amino Transf (AST/SGOT) 47 U/L Alanine Aminotransferase (ALT/SGPT) 64 U/L Alkaline Phosphatase 152 U/L Total Creatine Kinase 110 U/L Creatine Kinase MB 3.0 ng/ml Creatine Kinase MB Ratio 2.7 Troponin I 0.022 ng/ml 0.022 ng/ml Pro-B-Type Natriuretic Peptide 9116 pg/ml Total Protein 7.0 gm/dl Albumin 3.1 gm/dl Thyroid Stimulating Hormone (TSH) 5.220 uIu/ml Free Thyroxine 1.44 ng/dl Urine Color YELLOW Urine Appearance CLEAR Urine pH 6.0 Urine Specific [place] 1.014 Urine Protein NEG Urine Glucose (UA) NEG Urine Ketones NEG Urine Occult Blood NEG Urine Nitrite NEG Urine Bilirubin NEG Urine Urobilinogen NEG Urine Leukocyte Esterase NEG Bedside Glucose 106 mg/dl Estimated Average Glucose 146 mg/dl Hemoglobin A1c 6.7 % Diagnostic Imaging: CXR port (11/04): IMPRESSION: Cardiomegaly and mild interstitial thickening/edema. No evidence of focal pulmonary consolidation Assessment & Plan 85 yo M with a significant h/o heart disease and heart failure admitted to the hospital as a direct admission from the Cardiology office for stricter management of acute HF and anticoagulation in preparation for poss ANANDA/CV for new onset afib/flutter 1. Acute heart failure decompensation-etiology includes but not limited to noncompliance with medications, new onset afib/flutter rhythm, dietary indiscretion. Difficult to control as an outpatient as he is elderly and lives alone with multiple medications to manage. Enzymes negative overnight and patient is asymptomatic. Good response to IV Lasix 60mg last night with 1700cc out overnight. Defer to Cards team for further diuresis and management of HF and rhythm abnormality. Nicholas placed and ordered daily standing weights to track progress. 2. HERMELINDA on CKD Stage III-baseline is around 2.0, however, slight elevation may be 2/2 volume overload. Already has been some improvement overnight after diuresis 3. Afib-new onset, pt is on Coumadin as outpatient and currently has a therapeutic INR. On amio 200mg PO bID and Toprol 50mg PO BID for control. Daily INR ordered and cont coumadin for now. Cards team to decide about possible ANANDA/CV as inpatient. 4. CAD s/p CABG-cont medical management wtih ASA 81, Lipitor and Toprol. Lis 2.5 held in setting of HERMELINDA 5. s/p bioprosthetic valve replacement 6. High-grade AVB s/p pacemaker placement 7. DMII-cont 8. HTN-stable, recently stopped chlorthalidone as outpatient and Lasix was added. Hold lisinopril in setting of HERMELINDA DVT prophylaxis, Coumadin. INR 2-3. Full code. Patient requests that his [id number], Ms. Kristie Bills be updated for important decisions regarding his care. DO Rip Stokesholy [facility] Hospitalist Continued [facility] stay due to: multiple IV medications needed Discharge planning: uncertain Consultants: Cardiology Current Inpatient Medications: Current Inpatient Medications Medications (Trade) Dose Ordered Sig/Avinash Route Start Time Stop Time Status Last Admin Dose Admin Amiodarone HCl (Cordarone Tab) 200 mg BID PO 11/05/16 09:00 12/05/16 08:59 11/05/16 08:28 200 MG Aspirin (Ecotrin Tab) 81 mg DAILY PO 11/05/16 09:00 12/05/16 08:59 11/05/16 08:27 81 MG Atorvastatin Calcium (Lipitor Tab) 40 mg DAILY PO 11/05/16 09:00 12/05/16 08:59 11/05/16 08:28 40 MG Metoprolol Succinate (Toprol Xl Tab) 50 mg BID PO 11/05/16 09:00 12/05/16 08:59 11/05/16 08:28 50 MG Nitroglycerin (Nitrostat Tab) 0.4 mg UD PRN UT 11/04/16 22:30 12/04/16 22:29 Ferrous Sulfate (Feosol Tab) 325 mg BID PO 11/05/16 09:00 12/05/16 08:59 11/05/16 08:28 325 MG Miscellaneous Information (Order Awaiting Action) 1 ea QS N/A 11/05/16 08:00 12/05/16 07:59 Acetaminophen (Tylenol Tab) 650 mg Q4H PRN PO 11/04/16 22:30 12/04/16 22:29 Hydromorphone HCl (Dilaudid Inj) 0.5 mg Q3H PRN IV 11/04/16 22:30 11/18/16 22:29 Tramadol HCl (Ultram Tab) 25 mg Q6H PRN PO 11/04/16 22:30 12/04/16 22:29 Ondansetron HCl (Zofran Inj) 4 mg Q6H PRN IV 11/04/16 22:30 12/04/16 22:29 Ipratropium [place] (Atrovent 0.02% 0.5MG/2.5ML Neb) 0.5 mg Q4H PRN INH 11/04/16 23:00 12/04/16 22:59 Levalbuterol (Xopenex 1.25MG/ 0.5ML Neb) 1.25 mg Q4H PRN INH 11/04/16 23:00 12/04/16 22:59 Insulin Aspart (novoLOG ASPART) SLIDING SCALE If C... ACHS SC 11/05/16 07:00 12/05/16 06:59 Glucose (Glucose 40% Gel) 15-30 GRAMS 15 GRAMS... UD PRN PO 11/05/16 04:00 12/05/16 03:59 Glucose (Glucose Chew Tab) 4-8 Tablets 4 Tabl... UD PRN PO 11/05/16 04:00 12/05/16 03:59 Dextrose (Dextrose 50% 50ML Syringe) 25-50ML OF 50% DW IV FOR... UD PRN IV 11/05/16 04:00 12/05/16 03:59 Glucagon (Glucagon Inj) 1 mg UD PRN SQ 11/05/16 04:00 12/05/16 03:59
[2016-11-05 11:17] LABS: BASO % 0.2 %; BASO ABS # 0.01 K/uL (0-0.2); COMPLETE YES; EOS % 4.1 %; LYMPH % 16.5 %; LYMPH ABS # 0.97 K/uL (1.2-3.4); MEAN PLATELET VOLUME 12.8 fL (7.4-10.4); MONO % 14.3 %; NEUT % 64.9 %; PLATELET COUNT 143 K/uL (130-400)
[2016-11-05] MEDS ORDERED: FUROSEMIDE INJ 40 MG in SYRINGE 0 ML IV ONE (12:15)
--- NOTE | 2016-11-05 12:47 | CARDIOLOGY CONSULTATION ---
DATE OF CONSULTATION: 11/05/2016 HISTORY OF PRESENT ILLNESS: James Bills is an 85-year-old male seen in cardiology consultation per the request of Dr. Garner for the evaluation of shortness of breath and congestive heart failure. The patient is well known to the undersigned and had been seen in an outpatient followup by Arminda Pisano PA-C and the undersigned yesterday, 11/04/2016. The patient has a complex cardiac history as noted below. Over the last several weeks, he has had progressive shortness of breath that has been refractory to multiple outpatient medication changes including the addition of amiodarone for breakthrough atrial fibrillation, addition of Coumadin, increase in metoprolol dose, and escalation of his diuretic therapy. He has had difficulty with maintaining adherence with his Coumadin dose and therefore, elective direct current cardioversion had to be postponed recently. He has been following closely with our outpatient congestive heart failure clinic. He was to see me as an outpatient last week, but missed his appointment and subsequently came in yesterday. Over the last 2 weeks, he has developed lower extremity edema, weight gain, and pulmonary congestion consistent with acutely decompensated heart failure in the setting of atrial flutter. The patient lives independently and has friends to check up on him. His friend that brought him to his appointment yesterday is very concerned that he has been becoming short of breath with very minimal activity. The patient's history includes remote coronary artery bypass grafting and subsequent transcatheter aortic valve replacement. He received a permanent pacemaker for high-grade AV block and syncope that occurred after his transcatheter aortic valve replacement that had been performed. PAST MEDICAL HISTORY: 1. Coronary artery disease with remote coronary artery bypass. 2. History of paroxysmal atrial fibrillation/paroxysmal atrial flutter. 3. History of high-grade AV block after transcatheter aortic valve replacement prompting dual chamber permanent pacemaker. 4. Dyslipidemia. 5. Hypertension. 6. Chronic kidney disease with a recent acute kidney insufficiency. 7. History of aspiration pneumonia. 8. History of type 2 diabetes mellitus. PAST SURGICAL HISTORY: 1. Coronary artery bypass grafting x4 in 1996. 2. Transcatheter aortic valve replacement for severe symptomatic aortic stenosis, 01/31/2016. 3. Dual chamber permanent pacemaker performed on 02/06/2016 at [facility]. 4. History of removal of bladder tumor, 1997. 5. History of inguinal hernia repair, 2006. FAMILY HISTORY: Father apparently of stomach cancer, details unknown. SOCIAL HISTORY: The patient lives independently. He is a former smoker, having quit in 1979. He has a dog training business. COMPREHENSIVE REVIEW OF SYSTEMS: Notable for exertional shortness of breath as noted above. Otherwise, a 10-point review of systems is negative. OUTPATIENT MEDICATIONS: Reviewed. ALLERGIES: PENICILLIN G AND OTHER PENICILLINS. PHYSICAL EXAMINATION: VITAL SIGNS: Temperature 36.7, heart rate 77, respiratory rate 18, blood pressure 125/76, and pulse oximetry 97% on room air. GENERAL APPEARANCE: The patient is clinically improved compared to when I saw him yesterday. He appears chronically ill, but has no acute distress. NECK: No bruits. CARDIOVASCULAR: Irregular rhythm. No murmurs. ABDOMEN: Soft and nontender. EXTREMITIES: 1+ edema, improved compared to yesterday. NEUROLOGIC: No focal deficits. DIAGNOSTIC DATA: EKG performed on admission reveals atrial fibrillation with mildly elevated ventricular rate and occasional demand ventricular pacing. The patient's creatinine on presentation was 2.3, which is elevated compared to 2.0 on 10/23/2016 and it has improved to 2.1 mg per deciliter today. INR is within the therapeutic range at 2.9. He has been having close outpatient INR followup with reading on 10/30/2016 of 3.19. Reading on 10/23/2016 of 1.88. Reading on 10/16/2016 of 3.55. Most recent echocardiogram had been performed at [facility] on 06/09/2016, normal LV chamber size with mild concentric left ventricular hypertrophy and normal LV systolic function. Apical wall motion, perhaps reflecting right ventricular pacemaker activation, otherwise no segmental left ventricular wall motion abnormalities with ejection fraction of 55%-60%. Bioprosthetic aortic valve noted with normal gradients. Moderate left atrial enlargement was noted. FINAL IMPRESSION: An 85-year-old male with, 1. Acute decompensation of chronic diastolic heart failure in the setting of atrial flutter with mildly elevated ventricular rates. 2. Acute kidney insufficiency, on chronic kidney disease. DISCUSSION AND RECOMMENDATIONS: Upon review of the patient's outpatient blood work, his baseline creatinine is typically in the 1.7-1.8 range on recent outpatient panels in August and September 2016 and he has trended up to 2 earlier this month. At present, his creatinine has improved compared to his presentation in this hospital stay and it actually trending down after the patient received a dose of furosemide 60 mg at 23:34 last evening. At the present time, I am going to recommend giving him furosemide 40 mg IV x1 and we will reassess his kidney function tomorrow. We will continue his other medications including Coumadin. After his volume status is optimized, consideration will be made towards proceeding with cardioversion. ISAAC
[2016-11-05] MEDS: WARFARIN SOD 2.5 MG TAB PO SCH (15:37)
[2016-11-06] VITALS (9 sets, daily range): BP systolic 99–133; BP diastolic 62–75; PULSE 69–86; TEMP 36.4–36.8; O2SAT 90–98
[2016-11-06 07:52] LABS: MEAN CORPUSCULAR HGB CONC 32.1 g/dl (32-36)
[2016-11-06] MEDS: INSULIN ASPART 100 UNITS/ML 3 ML PEN SC SCH ×3 (07:59→16:48)
[2016-11-06 08:22] LABS: INR 2.5 (0.9-1.1); PROTHROMBIN TIME (PATIENT) 27.8 SECONDS (9.0-12.0)
[2016-11-06 08:25] LABS: BUN/CREATININE RATIO 22.6 (10-20); CALCIUM 8.5 mg/dl (8.5-10.1); CREATININE 2.2 mg/dl (0.60-1.40); POTASSIUM 3.6 mmol/L (3.5-5.1)
[2016-11-06 08:42] LABS: HEMATOCRIT 41.8 % (42-52); MEAN CELL VOLUME 92.1 fL (80-100); MEAN CORPUSCULAR HEMOGLOBIN 29.5 pg (25-34); RED BLOOD COUNT 4.54 M/uL (4.7-6.1); WHITE BLOOD COUNT 6.64 K/uL (4.8-10.8)
[2016-11-06] MEDS ORDERED: POTASSIUM CHLORIDE 10 MEQ TABCR PO STA ×2 (09:18→09:19)
[2016-11-06] MEDS: ATORVASTATIN 20 MG TAB PO SCH (09:27)
[2016-11-06] MEDS: AMIODARONE 200 MG TAB PO SCH ×2 (09:27→19:29)
[2016-11-06] MEDS: ASPIRIN 81 MG ECTAB PO SCH (09:27)
[2016-11-06] MEDS: FERROUS SULFATE 325 MG TAB PO SCH ×2 (09:27→19:29)
[2016-11-06] MEDS: METOPROLOL SUCC 25MG EXT REL TAB PO SCH ×2 (09:28→19:28)
[2016-11-06] MEDS ORDERED: FUROSEMIDE INJ 20 MG in SYRINGE 0 ML IV ONE (09:30)
--- NOTE | 2016-11-06 10:46 | Cardiology Follow-Up ---
Subjective General Date of Service: Nov 06, 2016. Chief Complaint: follow up CHF, Atrial flutter Pt evaluation today including: conversation w/ patient, physical exam History of Present Illness The patient is a 85 year old male seen in follow up. Pt feeing better subjectively. Had 2L of urine outpt in [place] with lasix yesterday. Telemetry reveals rate control AF and AFL. Allergies Coded Allergies: Penicillins (Verified Allergy, Mild, ITCHING, 11/04/16) Social History Smoking Status: Never Smoker Hx Tobacco Use In Past Year?: No Hx Alcohol Use - Type And Amou: No Hx Substance Use - Type And Am: No Problem List Medical Problems: (1) Cardiac arrest Status: Acute (2) Dyspnea Status: Acute (3) Elevated troponin Status: Acute (4) Elevated troponin Status: Acute (5) Hypoxia Status: Acute (6) Lower extremity edema Status: Acute (7) Pneumonia Status: Acute (8) Precordial chest pain Status: Acute (9) Pulmonary edema Status: Acute (10) Respiratory arrest Status: Acute (11) Shortness of breath Status: Acute (12) SIRS (systemic inflammatory response syndrome) Status: Acute (13) Tachycardia Status: Acute Physical Exam Vital Signs Last Vital Signs Documentation Date Time Temp Pulse Resp B/P Pulse Ox O2 Delivery O2 Flow Rate FiO2 11/06/16 08:09 36.5 70 20 133/75 93 Room Air Physical Exam Constitutional: Level of Distress: NAD Neck: supple Lungs: Auscultation: pertinent finding (mildly decreased BS at the bases ) Cardiovascular: Heart Auscultation: no murmurs, irregular rate rhythm Extremities: pertinent finding (trace edema, much improved ) Neurologic: Gait & Station: pertinent finding (no focal defcits ) Assessment and Plan Assessment and Plan Impression : 85 year old male 1. Acute on chronic diastolic HF 2. HERMELINDA on CKD 3. Persistent atrial flutter versus atrial fibrillation 4. h/o remote CABG 5. TAVR 2016, heart block post procedure, requiring implant of dual chamber [facility] PPM Plan: Reduced furosemide to 20 mg IV today. Need to accept some degree of azotemia. Continue beta gi and amiodarone. Continue coumadin. INR is at goal Plan to proceed with DCCV Wednesday 11/08 after volume status optimized. Discussed case with case management, Faye, ext [phone], and requested assistance with home health post hospital. Efforts were being made as outpt to have pt establish with [facility] for CHF follow up, help with medications. Laboratory Results Last 24 Hours Test 11/05/16 11:41 11/05/16 16:00 11/05/16 20:38 11/06/16 06:23 Bedside Glucose 93 mg/dl 107 mg/dl 121 mg/dl 94 mg/dl Test 11/06/16 07:20 White Blood Count 6.64 K/uL Red Blood Count 4.54 M/uL Hemoglobin 13.4 g/dL Hematocrit 41.8 % Mean Corpuscular Volume 92.1 fL Mean Corpuscular Hemoglobin 29.5 pg Mean Corpuscular Hemoglobin Concent 32.1 g/dl RDW Standard Deviation 48.8 fL RDW Coefficient of Variation 14.5 % Prothrombin Time 27.8 SECONDS Prothromb Time International Ratio 2.5 Sodium Level 141 mmol/L Potassium Level 3.6 mmol/L Chloride Level 100 mmol/L Carbon Dioxide Level 33 mmol/L Anion Gap 8.0 mmol/L Blood Urea Nitrogen 50 mg/dl Creatinine 2.20 mg/dl Est Creatinine Clear Calc Drug Dose 21.3 ml/min Estimated GFR () 30.1 Estimated GFR (Non- 26.0 BUN/Creatinine Ratio 22.6 Random Glucose 105 mg/dl Calcium Level 8.5 mg/dl
[2016-11-06 11:11] LABS: MEAN PLATELET VOLUME 13.6 fL (7.4-10.4); PLATELET COUNT 133 K/uL (130-400)
[2016-11-06 11:12] LABS: BASO % 0.2 %; BASO ABS # 0.01 K/uL (0-0.2); COMPLETE YES; EOS % 4.1 %; IG% 0.2 %; LYMPH % 15.5 %; LYMPH ABS # 1.03 K/uL (1.2-3.4); MONO % 12.7 %; NEUT % 67.3 %
[2016-11-06] MEDS: WARFARIN SOD 2.5 MG TAB PO SCH (16:18)
--- NOTE | 2016-11-06 18:22 | Progress Note ---
Medicine Progress Note Date & Time of Visit: Nov 06, 2016 at 14:03. Subjective 85 yo M with a significant h/o heart disease and heart failure admitted to the hospital as a direct admission from the Cardiology office for stricter management of acute HF and anticoagulation in preparation for poss ANANDA/CV for new onset afib/flutter -denies chest pain or shortness of breath -otherwise asymptomatic -tolerating PO -reports swelling considerably improved -concerned because urine is tinged red Objective Last 8 Hrs Date Time Temp Pulse Resp B/P Pulse Ox O2 Delivery O2 Flow Rate FiO2 11/06/16 12:10 36.5 70 20 111/68 98 Room Air 11/06/16 12:00 98 Room Air 11/06/16 08:09 36.5 70 20 133/75 93 Room Air 11/06/16 08:00 93 Room Air Physical Exam: GEN: WNWD, in no acute distress, alert and appropriate, no conversational dyspnea. HEENT: NC/AT, pupils are equal, normal sclerae CARDIO: reg rate, S1/2 heard without m/g/r, no JVD LUNGS: CTA bilaterally, no crackles, rales or wheezes, good diaphragmatic excursion ABD: soft, non-tender, non-distended, no rebound or guarding, BS+ EXTREMITY:no edema, warm and well perfused. NEURO: CN 2-12 grossly intact, sensation intact throughout, no gross focal deficits. MUSC: moves all extremities equally SKIN: warm and dry Laboratory Results: 11/06/16 07:20 Red Blood Count 4.54, Mean Corpuscular Volume 92.1, Mean Corpuscular Hemoglobin 29.5, Mean Corpuscular Hemoglobin Concent 32.1, Mean Platelet Volume 13.6, Neutrophils (%) (Auto) 67.3, Lymphocytes (%) (Auto) 15.5, Monocytes (%) (Auto) 12.7, Eosinophils (%) (Auto) 4.1, Basophils (%) (Auto) 0.2, Neutrophils # (Auto ) 4.48, Lymphocytes # (Auto) 1.03, Monocytes # (Auto) 0.84, Eosinophils # (Auto ) 0.27, Basophils # (Auto) 0.01 11/06/16 07:20 Test 11/04/16 20:38 11/04/16 22:25 11/05/16 06:52 11/06/16 07:20 Platelet Estimate NORMAL Activated Partial Thromboplast Time 34.2 SECONDS (21.0-31.0) Partial Thromboplastin Ratio 1.3 Magnesium Level 2.1 mg/dl (1.8-2.4) Total Bilirubin 0.5 mg/dl (0.2-1) Direct Bilirubin 0.2 mg/dl (0-0.2) Aspartate Amino Transf (AST/SGOT) 47 U/L (15-37) Alanine Aminotransferase (ALT/SGPT) 64 U/L (12-78) Alkaline Phosphatase 152 U/L (45-117) Total Creatine Kinase 110 U/L (39-308) Creatine Kinase MB 3.0 ng/ml (0.5-3.6) Creatine Kinase MB Ratio 2.7 (0-3.0) Pro-B-Type Natriuretic Peptide 9116 pg/ml (0-1800) Total Protein 7.0 gm/dl (6.4-8.2) Albumin 3.1 gm/dl (3.4-5.0) Thyroid Stimulating Hormone (TSH) 5.220 uIu/ml (0.300-4.500) Free Thyroxine 1.44 ng/dl (0.80-1.60) Urine Color YELLOW Urine Appearance CLEAR (CLEAR) Urine pH 6.0 (4.5-7.5) Urine Specific [place] 1.014 (1.000-1.030) Urine Protein NEG (NEG) Urine Glucose (UA) NEG (NEG) Urine Ketones NEG (NEG) Urine Occult Blood NEG (NEG) Urine Nitrite NEG (NEG) Urine Bilirubin NEG (NEG) Urine Urobilinogen NEG (NEG) Urine Leukocyte Esterase NEG (NEG) Estimated Average Glucose 146 mg/dl Hemoglobin A1c 6.7 % (4.5-5.6) Troponin I 0.022 ng/ml (0-0.045) White Blood Count 6.64 K/uL (4.8-10.8) Red Blood Count 4.54 M/uL (4.7-6.1) Hemoglobin 13.4 g/dL (14.0-18.0) Hematocrit 41.8 % (42-52) Mean Corpuscular Volume 92.1 fL (80-100) Mean Corpuscular Hemoglobin 29.5 pg (25-34) Mean Corpuscular Hemoglobin Concent 32.1 g/dl (32-36) Platelet Count 133 K/uL (130-400) Mean Platelet Volume 13.6 fL (7.4-10.4) Neutrophils (%) (Auto) 67.3 % Lymphocytes (%) (Auto) 15.5 % Monocytes (%) (Auto) 12.7 % Eosinophils (%) (Auto) 4.1 % Basophils (%) (Auto) 0.2 % Neutrophils # (Auto) 4.48 K/uL (1.4-6.5) Lymphocytes # (Auto) 1.03 K/uL (1.2-3.4) Monocytes # (Auto) 0.84 K/uL (0.11-0.59) Eosinophils # (Auto) 0.27 K/uL (0-0.5) Basophils # (Auto) 0.01 K/uL (0-0.2) RDW Standard Deviation 48.8 fL (36.4-46.3) RDW Coefficient of Variation 14.5 % (11.5-14.5) Immature Granulocyte % (Auto) 0.2 % Immature Granulocyte # (Auto) 0.01 K/uL (0.00-0.02) Prothrombin Time 27.8 SECONDS (9.0-12.0) Prothromb Time International Ratio 2.5 (0.9-1.1) Anion Gap 8.0 mmol/L (3-11) Est Creatinine Clear Calc Drug Dose 21.3 ml/min Estimated GFR () 30.1 Estimated GFR (Non- 26.0 BUN/Creatinine Ratio 22.6 (10-20) Calcium Level 8.5 mg/dl (8.5-10.1) Test 11/06/16 16:34 Bedside Glucose 124 mg/dl (70-99) Last 24 Hours Test 11/05/16 16:00 11/05/16 20:38 11/06/16 06:23 11/06/16 07:20 Bedside Glucose 107 mg/dl 121 mg/dl 94 mg/dl White Blood Count 6.64 K/uL Red Blood Count 4.54 M/uL Hemoglobin 13.4 g/dL Hematocrit 41.8 % Mean Corpuscular Volume 92.1 fL Mean Corpuscular Hemoglobin 29.5 pg Mean Corpuscular Hemoglobin Concent 32.1 g/dl Platelet Count 133 K/uL Mean Platelet Volume 13.6 fL Neutrophils (%) (Auto) 67.3 % Lymphocytes (%) (Auto) 15.5 % Monocytes (%) (Auto) 12.7 % Eosinophils (%) (Auto) 4.1 % Basophils (%) (Auto) 0.2 % Neutrophils # (Auto) 4.48 K/uL Lymphocytes # (Auto) 1.03 K/uL Monocytes # (Auto) 0.84 K/uL Eosinophils # (Auto) 0.27 K/uL Basophils # (Auto) 0.01 K/uL RDW Standard Deviation 48.8 fL RDW Coefficient of Variation 14.5 % Immature Granulocyte % (Auto) 0.2 % Immature Granulocyte # (Auto) 0.01 K/uL Prothrombin Time 27.8 SECONDS Prothromb Time International Ratio 2.5 Sodium Level 141 mmol/L Potassium Level 3.6 mmol/L Chloride Level 100 mmol/L Carbon Dioxide Level 33 mmol/L Anion Gap 8.0 mmol/L Blood Urea Nitrogen 50 mg/dl Creatinine 2.20 mg/dl Est Creatinine Clear Calc Drug Dose 21.3 ml/min Estimated GFR () 30.1 Estimated GFR (Non- 26.0 BUN/Creatinine Ratio 22.6 Random Glucose 105 mg/dl Calcium Level 8.5 mg/dl Test 11/06/16 11:41 Bedside Glucose 104 mg/dl Assessment & Plan 85 yo M with a significant h/o heart disease and heart failure admitted to the hospital as a direct admission from the Cardiology office for stricter management of acute HF and anticoagulation in preparation for poss ANANDA/CV for new onset afib/flutter 1. Acute diastolic heart failure-etiology includes but not limited to noncompliance with medications, new onset afib/flutter rhythm, dietary indiscretion. Difficult to control as an outpatient as he is elderly and lives alone with multiple medications to manage. Serial enzymes negative on admission. Approx 5L out since admission, however, weight loss is unreliable because a standing scale was not used initially. Defer to Cards team for further diuresis and management of HF and rhythm abnormality. Nicholas placed and continue daily standing weights to track progress. 2. HERMELINDA on CKD Stage III-baseline is around 2.0, with a slight elevation 2/2 poss overdiuresis to some extent. Smaller amount of Lasix ordered for today. Leg swelling is remarkably improved already. 5 L output. Cont per Cards recs. 3. Afib-new onset, pt is on Coumadin as outpatient and currently has a therapeutic INR. On amio 200mg PO bID and Toprol 50mg PO BID for control. Daily INR ordered and cont coumadin for now-remains in therapeutic range. Plan for ANANDA/CV in two days as inpatient. 4. CAD s/p CABG-cont medical management wtih ASA 81, Lipitor and Toprol. Lis 2.5 held in setting of HERMELINDA 5. s/p bioprosthetic valve replacement 6. High-grade AVB s/p pacemaker placement 7. DMII- A1C is 6.7. Pt states that he is not a diabetic. FSG has been around 90-100. Removed fingersticks and insulin coverage. Changed diet to remove diabetic restrictions. 8. HTN-stable, recently stopped chlorthalidone as outpatient and Lasix was added. Hold lisinopril in setting of HERMELINDA 9. Hematuria in Nicholas bag-likely 2/2 Nicholas trauma on Coumadin. Will recheck as outpatient. DVT prophylaxis, Coumadin. INR 2-3. Full code. Patient requests that his [id number], Ms. Kristie Bills be updated for important decisions regarding his care. Marnie Mederos DO [facility] Hospitalist Continued [facility] stay due to: multiple IV medications needed Discharge planning: uncertain Consultants: Cardiology Current Inpatient Medications: Current Inpatient Medications Medications (Trade) Dose Ordered Sig/Avinash Route Start Time Stop Time Status Last Admin Dose Admin Amiodarone HCl (Cordarone Tab) 200 mg BID PO 11/05/16 09:00 12/05/16 08:59 11/06/16 09:27 200 MG Aspirin (Ecotrin Tab) 81 mg DAILY PO 11/05/16 09:00 12/05/16 08:59 11/06/16 09:27 81 MG Atorvastatin Calcium (Lipitor Tab) 40 mg DAILY PO 11/05/16 09:00 12/05/16 08:59 11/06/16 09:27 40 MG Metoprolol Succinate (Toprol Xl Tab) 50 mg BID PO 11/05/16 09:00 12/05/16 08:59 11/06/16 09:28 50 MG Nitroglycerin (Nitrostat Tab) 0.4 mg UD PRN [place] 11/04/16 22:30 12/04/16 22:29 Ferrous Sulfate (Feosol Tab) 325 mg BID PO 11/05/16 09:00 12/05/16 08:59 11/06/16 09:27 325 MG Miscellaneous Information (Order Awaiting Action) 1 ea QS N/A 11/05/16 08:00 12/05/16 07:59 Acetaminophen (Tylenol Tab) 650 mg Q4H PRN PO 11/04/16 22:30 12/04/16 22:29 Hydromorphone HCl (Dilaudid Inj) 0.5 mg Q3H PRN IV 11/04/16 22:30 11/18/16 22:29 Tramadol HCl (Ultram Tab) 25 mg Q6H PRN PO 11/04/16 22:30 12/04/16 22:29 Ondansetron HCl (Zofran Inj) 4 mg Q6H PRN IV 11/04/16 22:30 12/04/16 22:29 Ipratropium [place] (Atrovent 0.02% 0.5MG/2.5ML Neb) 0.5 mg Q4H PRN INH 11/04/16 23:00 12/04/16 22:59 Levalbuterol (Xopenex 1.25MG/ 0.5ML Neb) 1.25 mg Q4H PRN INH 11/04/16 23:00 12/04/16 22:59 Insulin Aspart (novoLOG ASPART) SLIDING SCALE If C... ACHS SC 11/05/16 07:00 12/05/16 06:59 Glucose (Glucose 40% Gel) 15-30 GRAMS 15 GRAMS... UD PRN PO 11/05/16 04:00 12/05/16 03:59 Glucose (Glucose Chew Tab) 4-8 Tablets 4 Tabl... UD PRN PO 11/05/16 04:00 12/05/16 03:59 Dextrose (Dextrose 50% 50ML Syringe) 25-50ML OF 50% DW IV FOR... UD PRN IV 11/05/16 04:00 12/05/16 03:59 Glucagon (Glucagon Inj) 1 mg UD PRN SQ 11/05/16 04:00 12/05/16 03:59 Warfarin Sodium (Coumadin Tab) 2.5 mg DAILY@1600 PO 11/05/16 16:00 4/20/17 15:59 11/05/16 15:37 2.5 MG
[2016-11-07] VITALS (12 sets, daily range): BP systolic 101–135; BP diastolic 60–83; PULSE 70–112; TEMP 36.3–36.7; O2SAT 91–95
[2016-11-07 06:13] LABS: INR 2.3 (0.9-1.1); PROTHROMBIN TIME (PATIENT) 25.7 SECONDS (9.0-12.0)
[2016-11-07 06:38] LABS: BUN/CREATININE RATIO 26.5 (10-20); POTASSIUM 3.6 mmol/L (3.5-5.1)
[2016-11-07 07:05] LABS: BASO % 0.3 %; BASO ABS # 0.02 K/uL (0-0.2); COMPLETE YES; EOS % 3.4 %; HEMATOCRIT 38.9 % (42-52); IG% 0.2 %; LYMPH % 18.6 %; LYMPH ABS # 1.15 K/uL (1.2-3.4); MEAN CELL VOLUME 91.3 fL (80-100); MEAN CORPUSCULAR HGB CONC 32.9 g/dl (32-36); MONO % 11.7 %; NEUT % 65.8 %; PLATELET COUNT 116 K/uL (130-400); RED BLOOD COUNT 4.26 M/uL (4.7-6.1); WHITE BLOOD COUNT 6.17 K/uL (4.8-10.8)
[2016-11-07] MEDS: METOPROLOL SUCC 25MG EXT REL TAB PO SCH ×2 (08:13→20:00)
[2016-11-07] MEDS: ATORVASTATIN 20 MG TAB PO SCH (08:13)
[2016-11-07] MEDS: FERROUS SULFATE 325 MG TAB PO SCH ×2 (08:13→19:27)
[2016-11-07] MEDS: ASPIRIN 81 MG ECTAB PO SCH (08:13)
[2016-11-07] MEDS: AMIODARONE 200 MG TAB PO SCH ×2 (08:13→19:26)
--- NOTE | 2016-11-07 09:27 | Cardiology Follow-Up ---
Subjective General Date of Service: Nov 07, 2016. Chief Complaint: follow up CHF, Atrial flutter Pt evaluation today including: conversation w/ patient, physical exam History of Present Illness The patient is a 85 year old male seen in follow up. Patient feeling improved. Leg edema has resolved compared to presentation. Telemetry reveals rate controlled AF with demand RV pacing. Pt ambulating with walker. Allergies Coded Allergies: Penicillins (Verified Allergy, Mild, ITCHING, 11/04/16) Social History Smoking Status: Never Smoker Hx Tobacco Use In Past Year?: No Hx Alcohol Use - Type And Amou: No Hx Substance Use - Type And Am: No Problem List Medical Problems: (1) Cardiac arrest Status: Acute (2) Dyspnea Status: Acute (3) Elevated troponin Status: Acute (4) Elevated troponin Status: Acute (5) Hypoxia Status: Acute (6) Lower extremity edema Status: Acute (7) Pneumonia Status: Acute (8) Precordial chest pain Status: Acute (9) Pulmonary edema Status: Acute (10) Respiratory arrest Status: Acute (11) Shortness of breath Status: Acute (12) SIRS (systemic inflammatory response syndrome) Status: Acute (13) Tachycardia Status: Acute Physical Exam Vital Signs Last Vital Signs Documentation Date Time Temp Pulse Resp B/P Pulse Ox O2 Delivery O2 Flow Rate FiO2 11/07/16 07:34 36.6 87 20 135/80 92 Room Air Physical Exam Constitutional: Level of Distress: NAD Neck: supple Lungs: Auscultation: pertinent finding (mildly decreased BS at the bases ) Cardiovascular: Heart Auscultation: no murmurs, irregular rate rhythm Extremities: pertinent finding (trace edema, much improved ) Neurologic: Gait & Station: pertinent finding (no focal defcits ) Assessment and Plan Assessment and Plan Impression : 85 year old male 1. Acute on chronic diastolic HF 2. HERMELINDA on CKD 3. Persistent atrial flutter versus atrial fibrillation 4. h/o remote CABG 5. TAVR 2016, heart block post procedure, requiring implant of dual chamber [facility] PPM Plan: Transition to home oral dose of furosemide, 40 mg PO daily today, 11/07. Need to accept some degree of azotemia. Continue beta gi and amiodarone. Continue coumadin. INR is at goal Plan to proceed with DCCV Wednesday 11/08 after volume status optimized. On 11/06, I discussed case with case management, Faye, ext [phone], and requested assistance with home health post hospital. Efforts were being made as outpt to have pt establish with [facility] for CHF follow up, help with medications. DVT prophylaxis: pt on coumadin. NPO after MN except meds for CV in am. Pacer to be checked by [facility] rep post CV tomorrow. Laboratory Results Last 24 Hours Test 11/06/16 11:41 11/06/16 16:34 11/07/16 05:47 Bedside Glucose 104 mg/dl 124 mg/dl White Blood Count 6.17 K/uL Red Blood Count 4.26 M/uL Hemoglobin 12.8 g/dL Hematocrit 38.9 % Mean Corpuscular Volume 91.3 fL Mean Corpuscular Hemoglobin 30.0 pg Mean Corpuscular Hemoglobin Concent 32.9 g/dl Platelet Count 116 K/uL Mean Platelet Volume 13.0 fL Neutrophils (%) (Auto) 65.8 % Lymphocytes (%) (Auto) 18.6 % Monocytes (%) (Auto) 11.7 % Eosinophils (%) (Auto) 3.4 % Basophils (%) (Auto) 0.3 % Neutrophils # (Auto) 4.06 K/uL Lymphocytes # (Auto) 1.15 K/uL Monocytes # (Auto) 0.72 K/uL Eosinophils # (Auto) 0.21 K/uL Basophils # (Auto) 0.02 K/uL RDW Standard Deviation 48.2 fL RDW Coefficient of Variation 14.5 % Immature Granulocyte % (Auto) 0.2 % Immature Granulocyte # (Auto) 0.01 K/uL Prothrombin Time 25.7 SECONDS Prothromb Time International Ratio 2.3 Sodium Level 142 mmol/L Potassium Level 3.6 mmol/L Chloride Level 102 mmol/L Carbon Dioxide Level 30 mmol/L Anion Gap 10.0 mmol/L Blood Urea Nitrogen 53 mg/dl Creatinine 2.00 mg/dl Est Creatinine Clear Calc Drug Dose 23.5 ml/min Estimated GFR () 33.8 Estimated GFR (Non- 29.1 BUN/Creatinine Ratio 26.5 Random Glucose 103 mg/dl Calcium Level 8.0 mg/dl
[2016-11-07] MEDS ORDERED: FUROSEMIDE 40 MG TAB PO ONE (10:00)
[2016-11-07] MEDS ORDERED: POTASSIUM CHLORIDE 10 MEQ TABCR PO ONE (10:00)
[2016-11-07] MEDS: WARFARIN SOD 2.5 MG TAB PO SCH (15:57)
--- NOTE | 2016-11-07 23:16 | Progress Note ---
Medicine Progress Note Date & Time of Visit: Nov 07, 2016 at 13:52. Subjective Pt doing well today He had some L sided shoulder pain, took some nitro and was improved. EKG revealed v-paced rhythm as before. tolerating PO Asymptomatic Objective Last 8 Hrs Date Time Temp Pulse Resp B/P Pulse Ox O2 Delivery O2 Flow Rate FiO2 11/07/16 13:34 36.5 102 13 124/62 92 Room Air 11/07/16 12:47 80 122/60 11/07/16 12:08 Room Air 11/07/16 12:00 92 Room Air 11/07/16 11:29 36.4 75 20 101/63 92 Room Air 11/07/16 08:00 92 Room Air 11/07/16 07:34 36.6 87 20 135/80 92 Room Air Physical Exam: GEN: WNWD, in no acute distress, alert and appropriate, no conversational dyspnea. HEENT: NC/AT, pupils are equal, normal sclerae CARDIO: reg rate, S1/2 heard without m/g/r, no JVD LUNGS: CTA bilaterally, no crackles, rales or wheezes, good diaphragmatic excursion ABD: soft, non-tender, non-distended, no rebound or guarding, BS+ EXTREMITY:no edema, warm and well perfused. NEURO: CN 2-12 grossly intact, sensation intact throughout, no gross focal deficits. MUSC: moves all extremities equally SKIN: warm and dry Laboratory Results: 11/07/16 05:47 Red Blood Count 4.26, Mean Corpuscular Volume 91.3, Mean Corpuscular Hemoglobin 30.0, Mean Corpuscular Hemoglobin Concent 32.9, Mean Platelet Volume 13.0, Neutrophils (%) (Auto) 65.8, Lymphocytes (%) (Auto) 18.6, Monocytes (%) (Auto) 11.7, Eosinophils (%) (Auto) 3.4, Basophils (%) (Auto) 0.3, Neutrophils # (Auto ) 4.06, Lymphocytes # (Auto) 1.15, Monocytes # (Auto) 0.72, Eosinophils # (Auto ) 0.21, Basophils # (Auto) 0.02 11/07/16 05:47 Test 11/04/16 20:38 11/04/16 22:25 11/05/16 06:52 11/06/16 16:34 Platelet Estimate NORMAL Activated Partial Thromboplast Time 34.2 SECONDS (21.0-31.0) Partial Thromboplastin Ratio 1.3 Magnesium Level 2.1 mg/dl (1.8-2.4) Total Bilirubin 0.5 mg/dl (0.2-1) Direct Bilirubin 0.2 mg/dl (0-0.2) Aspartate Amino Transf (AST/SGOT) 47 U/L (15-37) Alanine Aminotransferase (ALT/SGPT) 64 U/L (12-78) Alkaline Phosphatase 152 U/L (45-117) Total Creatine Kinase 110 U/L (39-308) Creatine Kinase MB 3.0 ng/ml (0.5-3.6) Creatine Kinase MB Ratio 2.7 (0-3.0) Pro-B-Type Natriuretic Peptide 9116 pg/ml (0-1800) Total Protein 7.0 gm/dl (6.4-8.2) Albumin 3.1 gm/dl (3.4-5.0) Thyroid Stimulating Hormone (TSH) 5.220 uIu/ml (0.300-4.500) Free Thyroxine 1.44 ng/dl (0.80-1.60) Urine Color YELLOW Urine Appearance CLEAR (CLEAR) Urine pH 6.0 (4.5-7.5) Urine Specific [place] 1.014 (1.000-1.030) Urine Protein NEG (NEG) Urine Glucose (UA) NEG (NEG) Urine Ketones NEG (NEG) Urine Occult Blood NEG (NEG) Urine Nitrite NEG (NEG) Urine Bilirubin NEG (NEG) Urine Urobilinogen NEG (NEG) Urine Leukocyte Esterase NEG (NEG) Estimated Average Glucose 146 mg/dl Hemoglobin A1c 6.7 % (4.5-5.6) Troponin I 0.022 ng/ml (0-0.045) Bedside Glucose 124 mg/dl (70-99) Test 11/07/16 05:47 White Blood Count 6.17 K/uL (4.8-10.8) Red Blood Count 4.26 M/uL (4.7-6.1) Hemoglobin 12.8 g/dL (14.0-18.0) Hematocrit 38.9 % (42-52) Mean Corpuscular Volume 91.3 fL (80-100) Mean Corpuscular Hemoglobin 30.0 pg (25-34) Mean Corpuscular Hemoglobin Concent 32.9 g/dl (32-36) Platelet Count 116 K/uL (130-400) Mean Platelet Volume 13.0 fL (7.4-10.4) Neutrophils (%) (Auto) 65.8 % Lymphocytes (%) (Auto) 18.6 % Monocytes (%) (Auto) 11.7 % Eosinophils (%) (Auto) 3.4 % Basophils (%) (Auto) 0.3 % Neutrophils # (Auto) 4.06 K/uL (1.4-6.5) Lymphocytes # (Auto) 1.15 K/uL (1.2-3.4) Monocytes # (Auto) 0.72 K/uL (0.11-0.59) Eosinophils # (Auto) 0.21 K/uL (0-0.5) Basophils # (Auto) 0.02 K/uL (0-0.2) RDW Standard Deviation 48.2 fL (36.4-46.3) RDW Coefficient of Variation 14.5 % (11.5-14.5) Immature Granulocyte % (Auto) 0.2 % Immature Granulocyte # (Auto) 0.01 K/uL (0.00-0.02) Prothrombin Time 25.7 SECONDS (9.0-12.0) Prothromb Time International Ratio 2.3 (0.9-1.1) Anion Gap 10.0 mmol/L (3-11) Est Creatinine Clear Calc Drug Dose 23.5 ml/min Estimated GFR () 33.8 Estimated GFR (Non- 29.1 BUN/Creatinine Ratio 26.5 (10-20) Calcium Level 8.0 mg/dl (8.5-10.1) Last 24 Hours Test 11/06/16 16:34 11/07/16 05:47 Bedside Glucose 124 mg/dl White Blood Count 6.17 K/uL Red Blood Count 4.26 M/uL Hemoglobin 12.8 g/dL Hematocrit 38.9 % Mean Corpuscular Volume 91.3 fL Mean Corpuscular Hemoglobin 30.0 pg Mean Corpuscular Hemoglobin Concent 32.9 g/dl Platelet Count 116 K/uL Mean Platelet Volume 13.0 fL Neutrophils (%) (Auto) 65.8 % Lymphocytes (%) (Auto) 18.6 % Monocytes (%) (Auto) 11.7 % Eosinophils (%) (Auto) 3.4 % Basophils (%) (Auto) 0.3 % Neutrophils # (Auto) 4.06 K/uL Lymphocytes # (Auto) 1.15 K/uL Monocytes # (Auto) 0.72 K/uL Eosinophils # (Auto) 0.21 K/uL Basophils # (Auto) 0.02 K/uL RDW Standard Deviation 48.2 fL RDW Coefficient of Variation 14.5 % Immature Granulocyte % (Auto) 0.2 % Immature Granulocyte # (Auto) 0.01 K/uL Prothrombin Time 25.7 SECONDS Prothromb Time International Ratio 2.3 Sodium Level 142 mmol/L Potassium Level 3.6 mmol/L Chloride Level 102 mmol/L Carbon Dioxide Level 30 mmol/L Anion Gap 10.0 mmol/L Blood Urea Nitrogen 53 mg/dl Creatinine 2.00 mg/dl Est Creatinine Clear Calc Drug Dose 23.5 ml/min Estimated GFR () 33.8 Estimated GFR (Non- 29.1 BUN/Creatinine Ratio 26.5 Random Glucose 103 mg/dl Calcium Level 8.0 mg/dl Assessment & Plan 85 yo M with a significant h/o heart disease and heart failure admitted to the hospital as a direct admission from the Cardiology office for stricter management of acute HF and anticoagulation in preparation for poss ANANDA/CV for new onset afib/flutter 1. Acute diastolic heart failure-etiology includes but not limited to noncompliance with medications, new onset afib/flutter rhythm, dietary indiscretion. Difficult to control as an outpatient as he is elderly and lives alone with multiple medications to manage. Serial enzymes negative on admission. Approx 5L out since admission, however, weight loss is unreliable because a standing scale was not used initially. Defer to Cards team for further diuresis and management of HF and rhythm abnormality. Nicholas placed and continue daily standing weights to track progress. 2. HERMELINDA on CKD Stage III-baseline is around 2.0,-resolved with baseline right around. 3. Afib-new onset, pt is on Coumadin as outpatient and currently has a therapeutic INR. On amio 200mg PO bID and Toprol 50mg PO BID for control. Daily INR ordered and cont coumadin for now-remains in therapeutic range. Plan for ANANDA/CV in two days as inpatient. 4. CAD s/p CABG-cont medical management with ASA 81, Lipitor and Toprol. Lis 2.5 held in setting of HERMELINDA 5. s/p bioprosthetic valve replacement 6. High-grade AVB s/p pacemaker placement 7. DMII- A1C is 6.7. Pt states that he is not a diabetic. FSG has been around 90-100. Removed fingersticks and insulin coverage. Changed diet to remove diabetic restrictions. 8. HTN-stable, recently stopped chlorthalidone as outpatient and Lasix was added. Hold lisinopril in setting of HERMELINDA 9. Hematuria in Nicholas bag-likely 2/2 Nicholas trauma on Coumadin. Will recheck as outpatient. DVT prophylaxis, Coumadin. INR 2-3. Full code. Patient requests that his [id number], Ms. Kristie Bills be updated for important decisions regarding his care. DO [facility] Continued [facility] stay due to: multiple IV medications needed Discharge planning: uncertain Consultants: Cardiology Current Inpatient Medications: Current Inpatient Medications Medications (Trade) Dose Ordered Sig/Avinash Route Start Time Stop Time Status Last Admin Dose Admin Amiodarone HCl (Cordarone Tab) 200 mg BID PO 11/05/16 09:00 12/05/16 08:59 11/07/16 08:13 200 MG Aspirin (Ecotrin Tab) 81 mg DAILY PO 11/05/16 09:00 12/05/16 08:59 11/07/16 08:13 81 MG Atorvastatin Calcium (Lipitor Tab) 40 mg DAILY PO 11/05/16 09:00 12/05/16 08:59 11/07/16 08:13 40 MG Metoprolol Succinate (Toprol Xl Tab) 50 mg BID PO 11/05/16 09:00 12/05/16 08:59 11/07/16 08:13 50 MG Nitroglycerin (Nitrostat Tab) 0.4 mg UD PRN [place] 11/04/16 22:30 12/04/16 22:29 Ferrous Sulfate (Feosol Tab) 325 mg BID PO 11/05/16 09:00 12/05/16 08:59 11/07/16 08:13 325 MG Miscellaneous Information (Order Awaiting Action) 1 ea QS N/A 11/05/16 08:00 12/05/16 07:59 Acetaminophen (Tylenol Tab) 650 mg Q4H PRN PO 11/04/16 22:30 12/04/16 22:29 11/07/16 12:48 650 MG Hydromorphone HCl (Dilaudid Inj) 0.5 mg Q3H PRN IV 11/04/16 22:30 11/18/16 22:29 Tramadol HCl (Ultram Tab) 25 mg Q6H PRN PO 11/04/16 22:30 12/04/16 22:29 Ondansetron HCl (Zofran Inj) 4 mg Q6H PRN IV 11/04/16 22:30 12/04/16 22:29 Ipratropium [place] (Atrovent 0.02% 0.5MG/2.5ML Neb) 0.5 mg Q4H PRN INH 11/04/16 23:00 12/04/16 22:59 Levalbuterol (Xopenex 1.25MG/ 0.5ML Neb) 1.25 mg Q4H PRN INH 11/04/16 23:00 12/04/16 22:59 Warfarin Sodium (Coumadin Tab) 2.5 mg DAILY@1600 PO 11/05/16 16:00 12/05/16 15:59 11/06/16 16:18 2.5 MG Furosemide (Lasix Tab) 40 mg QAM PO 11/08/16 09:00 12/08/16 08:59
[2016-11-08] VITALS (10 sets, daily range): BP systolic 100–144; BP diastolic 62–76; PULSE 60–88; TEMP 36.6–36.9; O2SAT 91–98
--- NOTE | 2016-11-08 07:58 | Cardiology Procedure Brief Nt ---
Preliminary Cardiology Note Procedure Date Nov 08, 2016. Pre-Procedure Diagnosis symptomatic atrial flutter Post-Procedure Diagnosis successful conversion to sinus rhythm Procedure(s) Performed [facility] Investigator Vice Christian Gomez DO, FACC Blood Bank Supervisor(s) none Estimated Blood Loss none Preliminary Findings Patient received one dose of 200 J of biphasic energy with successful conversion to SB. Post procedure EKG revealed SR, AV sequential pacing. Recommendations Hold furosemide dose scheduled for this am. If creatinine is stable plan for DC on furosemide 40 mg PO daily , next dose . Continue metoprolol 50 mg BID. Continue amiodarone 200 mg BID -plan to reduce dose at outpt follow up to 200 mg daily if he remains in SR. Will have Pacer check today. If feeling well at lunch time, possible DC today with home health . Anesthesia Propofol 40 mg IV Complication(s) None Disposition PCU
[2016-11-08] MEDS ORDERED: PROPOFOL IV EMULSION 10 MG/ML 20 ML VIAL IV ONE (08:10)
[2016-11-08] MEDS: METOPROLOL SUCC 25MG EXT REL TAB PO SCH (08:17)
[2016-11-08] MEDS: FERROUS SULFATE 325 MG TAB PO SCH (08:18)
[2016-11-08] MEDS: ASPIRIN 81 MG ECTAB PO SCH (08:18)
[2016-11-08] MEDS: AMIODARONE 200 MG TAB PO SCH (08:18)
[2016-11-08] MEDS: ATORVASTATIN 20 MG TAB PO SCH (08:18)
--- NOTE | 2016-11-08 08:24 | Anesthesiology Progress Note ---
Anesthesia Post Op Note Date & Time Nov 08, 2016 at 08:25 Vital Signs Pain Intensity: 0 Vital Signs Past 12 Hours Date Time Temp Pulse Resp B/P Pulse Ox O2 Delivery O2 Flow Rate FiO2 11/08/16 08:05 60 16 128/54 92 Room Air 11/08/16 08:00 60 16 116/53 92 Room Air 11/08/16 07:55 60 16 119/52 93 Room Air 11/08/16 07:50 60 16 113/58 93 Room Air 11/08/16 07:45 60 16 113/59 95 Nasal Cannula 2 11/08/16 07:40 60 16 122/55 95 Nasal Cannula 2 11/08/16 07:40 60 16 125/65 96 Nasal Cannula 11/08/16 07:38 76 16 125/65 96 Nasal Cannula 11/08/16 07:36 85 16 140/74 98 Nasal Cannula 11/08/16 07:35 79 16 144/72 98 Room Air 11/08/16 04:06 36.9 88 20 129/76 91 Room Air 11/08/16 04:00 Room Air 11/08/16 00:00 Room Air 11/07/16 23:52 36.6 87 20 121/76 94 Room Air Notes Mental Status: alert / awake / arousable, participated in evaluation Pt Amnestic to Procedure: Yes Nausea / Vomiting: adequately controlled Pain: adequately controlled Airway Patency, RR, SpO2: stable & adequate BP & HR: stable & adequate Hydration State: stable & adequate Anesthetic Complications: no major complications apparent
--- NOTE | 2016-11-08 08:26 | Cardiology Follow-Up ---
Subjective General Date of Service: Nov 08, 2016. Chief Complaint: follow up CHF, Atrial flutter Pt evaluation today including: conversation w/ patient, physical exam History of Present Illness The patient is a 85 year old male seen in follow up prior to / during / and post cardioversion. Patient with R shoulder pain yesterday afternoon, atypical for angina. Pt tolerated cardioversion, now in SR, AV sequential pacing. Allergies Coded Allergies: Penicillins (Verified Allergy, Mild, ITCHING, 11/04/16) Social History Smoking Status: Never Smoker Hx Tobacco Use In Past Year?: No Hx Alcohol Use - Type And Amou: No Hx Substance Use - Type And Am: No Problem List Medical Problems: (1) Cardiac arrest Status: Acute (2) Dyspnea Status: Acute (3) Elevated troponin Status: Acute (4) Elevated troponin Status: Acute (5) Hypoxia Status: Acute (6) Lower extremity edema Status: Acute (7) Pneumonia Status: Acute (8) Precordial chest pain Status: Acute (9) Pulmonary edema Status: Acute (10) Respiratory arrest Status: Acute (11) Shortness of breath Status: Acute (12) SIRS (systemic inflammatory response syndrome) Status: Acute (13) Tachycardia Status: Acute Physical Exam Vital Signs Last Vital Signs Documentation Date Time Temp Pulse Resp B/P Pulse Ox O2 Delivery O2 Flow Rate FiO2 11/08/16 08:05 60 16 128/54 92 Room Air 11/08/16 07:45 2 11/08/16 04:06 36.9 Physical Exam Constitutional: Level of Distress: NAD Neck: supple Lungs: Auscultation: pertinent finding (mildly decreased BS at the bases ) Cardiovascular: Heart Auscultation: no murmurs, irregular rate rhythm Extremities: pertinent finding (trace edema, much improved ) Neurologic: Gait & Station: pertinent finding (no focal defcits ) Assessment and Plan Assessment and Plan Impression : 85 year old male 1. Acute on chronic diastolic HF- responded well to diuretic therapy, euvolemic (perhaps even a little dry, which at this point is favorable) 2. HERMELINDA on CKD, await creatinine 3. Persistent atrial flutter versus atrial fibrillation- for which pt had DCCV today 11/08, now SR 4. h/o remote CABG 5. TAVR 2015, heart block post procedure, requiring implant of dual chamber [facility] PPM Plan: Hold furosemide 40 mg PO planned today. Await am labs. If creatinine stable plan to resume furosemide 40 mg PO daily . Continue metoprolol tartrate 50 mg BID , and amiodarone 200 mg BID. If still in SR at outpt follow up , will consider decreasing amiodarone to 200 mg daily. Continue coumadin. [facility] pacer rep to recheck pacer this am. On 11/06, I discussed case with case management, Faye, ext [phone], and requested assistance with home health post hospital. Efforts were being made as outpt to have pt establish with [facility] for CHF follow up, help with medications. Disposition: pt to be reassess after am labs and pacer check back. If stable, plan for DC to home. Laboratory Results Last 24 Hours Test 11/08/16 04:44
[2016-11-08] MEDS ORDERED: FUROSEMIDE 40 MG TAB PO SCH (09:00)
[2016-11-08 10:03] LABS: INR 2.2 (0.9-1.1); PROTHROMBIN TIME (PATIENT) 23.8 SECONDS (9.0-12.0)
[2016-11-08 10:07] LABS: MEAN CELL VOLUME 89.9 fL (80-100); MEAN CORPUSCULAR HEMOGLOBIN 29.7 pg (25-34); RED BLOOD COUNT 4.45 M/uL (4.7-6.1); WHITE BLOOD COUNT 5.66 K/uL (4.8-10.8)
[2016-11-08 10:24] LABS: BUN/CREATININE RATIO 26.5 (10-20); CALCIUM 8.4 mg/dl (8.5-10.1); CREATININE 1.9 mg/dl (0.60-1.40); POTASSIUM 3.8 mmol/L (3.5-5.1)
--- NOTE | 2016-11-08 10:44 | Cardiology Progress Note ---
Cardiology Progress Note Date of Service Nov 08, 2016. Cardiology Progress Note labs including INR, renal function, and eletrolytes stable. [facility] pacer check reveals appropriate pacer function. Stable for DC to home.
[2016-11-08 10:53] LABS: MEAN PLATELET VOLUME 13.1 fL (7.4-10.4); PLATELET COUNT 140 K/uL (130-400)
[2016-11-08 10:54] LABS: BASO % 0.2 %; BASO ABS # 0.01 K/uL (0-0.2); COMPLETE YES; EOS % 3.4 %; IG% 0.2 %; LYMPH % 17.7 %; MONO % 12.9 %; NEUT % 65.6 %; PLT ESTIMATE DECREASED
--- NOTE | 2016-11-08 11:40 | CARDIOVERSION ---
DATE OF OPERATION: 11/08/2016 PRE-PROCEDURE DIAGNOSIS: Symptomatic atrial flutter, diastolic heart failure. POST-PROCEDURE DIAGNOSIS: Successful conversion to sinus rhythm. PROCEDURE PERFORMED: Synchronized recurrent cardioversion. PHARMACY SERVICE ASSOCIATE: Luis Gomez DO. COTTON ROLL PACKER: None. PROCEDURE: After informed consent was obtained and the timeout was performed, the patient received sedation with the supervision of Dr. Younger of anesthesia, receiving 40 mg of IV propofol. The patient received 1 dose of synchronized biphasic energy of 200 joules with successful conversion from atrial flutter to sinus bradycardia. The patient tolerated the procedure well without complications. RECOMMENDATIONS: The patient's furosemide dose scheduled for this a.m. is going to be held. If creatinine is stable and his pacemaker check is stable, plan for discharge today. I plan to resume his furosemide 40 mg by mouth daily tomorrow morning. Continue metoprolol tartrate 50 mg b.i.d. Continue amiodarone 200 mg b.i.d. If the patient remains in sinus rhythm at his upcoming outpatient followup visit, I will reduce dose to 200 mg daily at that time. He is to, of course, follow up with the anticoagulation clinic. I attest to the content of the Intraoperative Record and any orders documented therein. Any exceptions are noted below. ISAAC
--- NOTE | 2016-11-08 14:13 | Discharge Instructions ---
Discharge Instructions Date of Service Nov 08, 2016. Admission Reason for Admission: Chf Exacerbation Discharge Discharge Diagnosis / Problem: CHF exacerbation Discharge Goals Goal(s): Prevent Disease Progression Activity Recommendations Activity Limitations: per Instructions/Follow-up section . Instructions / Follow-Up Instructions / Follow-Up Call your Primary Care doctor if any of the following symptoms or problems start or get worse: * Shortness of breath or difficulty breathing * Wake up at night short of breath * Chest pain * Cough * Swelling of your hands, feet, or legs * More fatigued or tired with your normal activity * Palpitations - sudden fast heart beats WEIGHT * Weigh yourself every morning after using the bathroom. * Use the same scale. * Wear the same amount of clothing. * Write your weight down on a chart. * Call your Primary Care doctor if you gain more than 2-3 pounds in 1-2 days. MEDICATIONS * Use this discharge instruction sheet for medication instructions. * Take your medications at the time your doctor ordered. * Do not skip a dose of your medicines. * If you miss a dose of medicine, take it as soon as possible, but DO NOT DOUBLE A DOSE. * Read your medicine information when you get home. * Know all of the side effects of your medicine. If in doubt, ask your pharmacist * Call your Primary Care doctor's office if you have any side effects. * Be sure all of your doctors know what medicine and herbs you take (including cold, flu, and herbal medicine). Take the following with you to your follow-up doctor appointments: * Weight Chart * Medication List * List of questions Do not drink excessive alcohol, beer or wine. ---- ADDITIONAL PROVIDER INSTRUCTIONS: Please take all medications as instructed on medication sheet given at discharge. Please do NOT start LASIX (FUROSEMIDE) until 11/09 (tomorrow), and then continue taking daily. I am holding your lisinopril for now until you follow-up with your primary care physician and/or Configuration Engineer. They can refill it for you as needed. Please continue to followup with the Anticoagulation Clinic who manages your coumadin level (INR) as you were before. I have ordered Home Health nursing to stop by and check on you to help manage your medications and perform heart failure checks including vitals signs and daily standing weights. You will need to follow-up with the Cardiology office (Dr. Gomez/Ms. Pisano) as instructed by them or within two weeks. You have a follow-up appointment with Dr. Bañuelos at the [facility] location on 11/13 @ 1:50pm. Please bring all paperwork form this hospitalization with you. It was a pleasure taking care of you! Call if you have any questions or problems. You can reach a [facility] hospitalist on duty at [facility] 24 hours a day by calling [phone]. Take care of yourself. Marnie Mederos, [facility] Hospitalist Current Hospital Diet Patient's current hospital diet: AHA Diet (Heart Healthy) Discharge Diet Recommended Diet: AHA Diet (Heart Healthy) Procedures Procedures Performed: ANANDA/DCCV-elective 11/08-successful conversion to sinus rhythm Pending Studies Studies pending at discharge: no Laboratory Results Hemoglobin A1c Test 11/05/16 06:52 Range/Units Estimated Average Glucose 146 mg/dl Hemoglobin A1c 6.7 H 4.5-5.6 % Medical Emergencies . Who to Call and When: Call 911 or go to the Emergency Room if: * If at any time you feel your situation is an emergency * You have tightness or pain in your chest that does not go away with rest or Nitroglycerin * You are very short of breath even with rest . Non-Emergent Contact Non-Emergency issues call your: Primary Care Provider . . "Provider Documentation" section prepared by Marnie Mederos. VTE Core Measure Inpt VTE Proph given/why not?: Warfarin (Coumadin)
--- NOTE | 2016-11-13 12:44 | CARDIOVERSION ---
DATE OF OPERATION: 11/08/2016 PREPROCEDURE DIAGNOSIS: Symptomatic atrial flutter. POSTPROCEDURE DIAGNOSIS: Successful conversion to sinus rhythm. PROCEDURE PERFORMED: Direct current cardioversion. INSTRUMENTAL MUSICIAN: None. PROCEDURE: After informed consent was obtained and time-out was performed the patient underwent synchronized direct current cardioversion receiving 200 joules of biphasic energy with successful conversion to sinus bradycardia. Post procedure EKG confirmed the presence of sinus rhythm with AV sequential pacing. The patient was sedated with the assistance of Dr. Younger from anesthesia. Refer to anesthesia documentation for details of timing of sedation. COMPLICATIONS: None. DISPOSITION: The patient is to recover in the cardiac catheterization recovery area and then be transferred back to PCU for ongoing care. I attest to the content of the Intraoperative Record and any orders documented therein. Any exceptio ns are noted below.
--- NOTE | 2016-11-25 11:20 | Discharge Summary ---
Discharge Summary Date of Service Nov 25, 2016. Discharge Summary Admission Date: Nov 04, 2016 at 21:51 Discharge Date: Nov 08, 2016 Discharge Disposition: Home with services Principal Diagnosis: 1. Acute diastolic heart failure 2. HERMELINDA on CKD Stage III 3. Afib-new onset 4. CAD s/p CABG 5. s/p bioprosthetic valve replacement 6. High-grade AVB s/p pacemaker placement 7. DMII 8. HTN 9. Gross Hematuria in Nicholas bag-likely 2/2 Nicholas trauma on Coumadin. Procedures: DCCV-11/08 Vaccinations: None Consultations: Cardiology Pending Studies/Follow-Up: see instructions below Medication Reconciliation Continued Medications: Acetaminophen (Tylenol) 325 Mg Tab 650 MG PO Q4 PRN for Pain, TAB Alprostadil (Vasodilator) (Basco) 1,000 Mcg Sup 1 SUPP UR UD PRN for erectile dysfunction Amiodarone Hcl (Cordarone) 200 Mg Tab 200 MG PO BID, TAB Aspirin (Aspirin Ec) 81 Mg Tab 81 MG PO DAILY Atorvastatin (Lipitor) 40 Mg Tab 40 MG PO DAILY Desonide 0.05% (Desowen 0.05%) 60 Gm Cr 1 APPLN TOP BID for 14 Days, #60 GM Ferrous Sulfate (Kp Ferrous Sulfate) 325 Mg Tab 325 MG PO BID for 30 Days, #60 TAB 3 Refills Furosemide (Lasix) 20 Mg Tab 40 MG PO DAILY, TAB Hydrocortisone (Hydrocortisone) 90 Appln/30 Gm Cr 1 APPLN TOP BID apply to affected area Mesalamine (Lialda) 1.2 Gm Tab 1.2 GM PO DIRECTED, TAB 3 Refills Metoprolol Succ (Toprol Xl) (Toprol-Xl) 25 Mg Tabcr 50 MG PO BID, #30 TAB Nitroglycerin (Nitrostat) 0.4 Mg Tab 0.4 MG UT UD PRN for Chest Pain, BTL 1 under tongue every 5 min x3 as needed Potassium Ext Rel (Klor-Con) 20 Meq Tabcr 20 MEQ PO DAILY, TAB Warfarin Sod (Jantoven) 5 Mg Tab 2.5 MG PO DAILY, TAB Discontinued Medications: Lisinopril (Lisinopril) 2.5 Mg Tab 2.5 MG PO DAILY, TAB Admission Information HPI (per Admitting provider): HISTORY OF PRESENT ILLNESS: Medical history is significant for chronic diastolic heart failure (EF 55-60%), CAD status post CABG, history of TAVR, atrial fibrillation/sick sinus syndrome sp PPM, history of CVA as per records, BPH status post surgery, bladder cancer status post surgery, chronic renal insufficiency (baseline creatinine of 1.7-2), chronic anemia (baseline hemoglobin of 10), past tobacco abuse, history of ulcerative colitis as per records, DM2, diet controlled. chronic thrombocytopenia. Recent confinement in May 2016 for viral URTI. As per records, in the last 2 weeks, the patient is developing lower extremity swelling, weight gain and some pulmonary congestion. Low dose Lasix was initiated and tolerated. PX accompanied by friend to the headline writer's office today. Px's friend notes some dyspnea on exertion. Patient was complaining of intermittent chest pain which the patient currently denies. Persistent bilateral leg swelling. Concerns about confusion w/ medications in the last few weeks. Patient lives alone. Home health to be arranged. Claims to be compliant with home meds and denies dietary indiscretion. Patient was sent to the Emergency Room for IV diuresis and cardiac work-up. Physical Exam (per Admitting): PHYSICAL EXAMINATION: VITAL SIGNS: Blood pressure was noted to be 122/72 pulse rate 88, respiratory rate 24, temperature 36.6 and sats 92 on room air. GENERAL: Noted to be comfortable, in no respiratory distress, occasionally speaks in phrases to catch his breath. SKIN: Pallor. HEENT: Pale palpebral conjunctivae. Dry mucosa. NECK: Short neck. JVD not assessed. CHEST: Decreased breath sounds. HEART: Regular rate and rhythm. ABDOMEN: Soft. EXTREMITIES: Bilateral lower extremity edema, no tenderness. NEUROLOGIC: No gross focality. Hospital Course 85 yo M with a significant h/o heart disease and heart failure admitted to the hospital as a direct admission from the Cardiology office for stricter management of acute HF and anticoagulation in preparation for poss ANANDA/CV for new onset afib/flutter 1. Acute diastolic heart failure-etiology includes but not limited to noncompliance with medications, new onset afib/flutter rhythm, dietary indiscretion. Difficult to control as an outpatient as he is elderly and lives alone with multiple medications to manage. Serial enzymes negative on admission. Approx 5L out since admission, however, weight loss is unreliable because a standing scale was not used initially. Defer to Cards team for further diuresis and management of HF and rhythm abnormality. Nicholas placed and continue daily standing weights to track progress. Compensated by 11/08 and stable for discharge per Cards. 2. HERMELINDA on CKD Stage III-baseline is around 2.0,-resolved with baseline right around. 3. Afib-new onset, pt is on Coumadin as outpatient and currently has a therapeutic INR. On amio 200mg PO bID and Toprol 50mg PO BID for control. Elective DCCV on 11/08 that was successful and pacer check; OK per Cards he is stable for discharge. 4. CAD s/p CABG-cont medical management with ASA 81, Lipitor and Toprol. Lis 2.5 held in setting of HERMELINDA 5. s/p bioprosthetic valve replacement 6. High-grade AVB s/p pacemaker placement 7. DMII- A1C is 6.7. Pt states that he is not a diabetic. FSG has been around 90-100. Removed fingersticks and insulin coverage. Changed diet to remove diabetic restrictions. 8. HTN-stable, recently stopped chlorthalidone as outpatient and Lasix was added. Hold lisinopril in setting of HERMELINDA--resolved to baseline creat 1.9 by day of discharge on 11/08 9. Hematuria in Nicholas bag-likely 2/2 Nicholas trauma on Coumadin. Recheck as outpatient. On day of discharge, physical exam was unremarkable. He was ambulatory and tolerating PO. He was discharged in stable condition with Home Health services and close Cardiology follow-up. Total time spent on discharge = 60 minutes This includes examination of the patient, discharge planning, medication reconciliation, and communication with other providers. Discharge Instructions Discharge Instructions Date of Service Nov 08, 2016. Admission Reason for Admission: Chf Exacerbation Discharge Discharge Diagnosis / Problem: CHF exacerbation Discharge Goals Goal(s): Prevent Disease Progression Activity Recommendations Activity Limitations: per Instructions/Follow-up section . Instructions / Follow-Up Instructions / Follow-Up Call your Primary Care doctor if any of the following symptoms or problems start or get worse: * Shortness of breath or difficulty breathing * Wake up at night short of breath * Chest pain * Cough * Swelling of your hands, feet, or legs * More fatigued or tired with your normal activity * Palpitations - sudden fast heart beats WEIGHT * Weigh yourself every morning after using the bathroom. * Use the same scale. * Wear the same amount of clothing. * Write your weight down on a chart. * Call your Primary Care doctor if you gain more than 2-3 pounds in 1-2 days. MEDICATIONS * Use this discharge instruction sheet for medication instructions. * Take your medications at the time your doctor ordered. * Do not skip a dose of your medicines. * If you miss a dose of medicine, take it as soon as possible, but DO NOT DOUBLE A DOSE. * Read your medicine information when you get home. * Know all of the side effects of your medicine. If in doubt, ask your pharmacist * Call your Primary Care doctor's office if you have any side effects. * Be sure all of your doctors know what medicine and herbs you take (including cold, flu, and herbal medicine). Take the following with you to your follow-up doctor appointments: * Weight Chart * Medication List * List of questions Do not drink excessive alcohol, beer or wine. ---- ADDITIONAL PROVIDER INSTRUCTIONS: Please take all medications as instructed on medication sheet given at discharge. Please do NOT start LASIX (FUROSEMIDE) until 11/09 (tomorrow), and then continue taking daily. I am holding your lisinopril for now until you follow-up with your primary care physician and/or Mission Manager. They can refill it for you as needed. Please continue to followup with the Anticoagulation Clinic who manages your coumadin level (INR) as you were before. I have ordered Home Health nursing to stop by and check on you to help manage your medications and perform heart failure checks including vitals signs and daily standing weights. You will need to follow-up with the Cardiology office (Dr. Gomez/Ms. Pisano) as instructed by them or within two weeks. You have a follow-up appointment with Dr. Bañuelos at the [facility] location on 11/13 @ 1:50pm. Please bring all paperwork form this hospitalization with you. It was a pleasure taking care of you! Call if you have any questions or problems. You can reach a [facility] hospitalist on duty at [facility] 24 hours a day by calling [phone]. Take care of yourself. Marnie Meedros DO [facility] Hospitalist Current Hospital Diet Patient's current hospital diet: AHA Diet (Heart Healthy) Discharge Diet Recommended Diet: AHA Diet (Heart Healthy) Procedures Procedures Performed: ANANDA/DCCV-elective 11/08-successful conversion to sinus rhythm Pending Studies Studies pending at discharge: no Laboratory Results Hemoglobin A1c Test 11/05/16 06:52 Range/Units Estimated Average Glucose 146 mg/dl Hemoglobin A1c 6.7 H 4.5-5.6 % Medical Emergencies . Who to Call and When: Call 911 or go to the Emergency Room if: * If at any time you feel your situation is an emergency * You have tightness or pain in your chest that does not go away with rest or Nitroglycerin * You are very short of breath even with rest . Non-Emergent Contact Non-Emergency issues call your: Primary Care Provider . . "Provider Documentation" section prepared by Marnie Mederos. VTE Core Measure Inpt VTE Proph given/why not?: Warfarin (Coumadin) <Electronically signed by Marnie Mederos DO> Signed: 11/08/16 141 Signed: The status of this report is Signed * If report status is Draft, the document has not been finalized by the responsible provider. Addendum: 11/08/16 1513 Addendum: Marnie Mederos DO on 11/08/16 @ 15:13 Discharge Inst - Addendum Addendum Notes: ADDITIONAL INSTRUCTIONS: Home Health nursing will also be by on 11/11 to draw your INR, and then they will continue to draw your blood from home to send to the Coumadin Clinic as directed by the Coumadin Clinic staff. Addendum Provider: Addendum Notes were documented by provider Marnie Mederos. Signed: 11/08/16 1416 Additional Copies To Melo Bañuelos III, M.D.
[2016-12-17] MEDS ORDERED: NTRGSL/4 UT (06:56)
[2016-12-17] MEDS ORDERED: HYDCR25 TOP (06:59)
[2016-12-17] MEDS ORDERED: ASPI81TA28 PO (07:01)
[2016-12-17] MEDS ORDERED: FERR325T PO (15:10)
== END 2016-11-08 16:20 | disposition home health service (06) | DRG 291 ==
LOC: ENRESERVDT → ENRESERVTM → C.EDB 19:23 → C.2T 21:51
PROVIDERS: ADMIT Hospitalist; ATTEND Hospitalist
PROC: 5A2204Z Restoration of Cardiac Rhythm, Single (ICD-10-PCS; principal; 2016-11-08 07:30)
DX: I13.0 Hypertensive heart and chronic kidney disease with heart failure and stage 1 through stage 4 chronic kidney disease, or unspecified chronic kidney disease (principal); I50.33 Acute on chronic diastolic (congestive) heart failure; N17.9 Acute kidney failure, unspecified; I48.92 Unspecified atrial flutter; Z85.51 Personal history of malignant neoplasm of bladder; Z95.1 Presence of aortocoronary bypass graft; I25.10 Atherosclerotic heart disease of native coronary artery without angina pectoris; Z86.73 Personal history of transient ischemic attack (TIA), and cerebral infarction without residual deficits; Z87.891 Personal history of nicotine dependence; N40.0 Benign prostatic hyperplasia without lower urinary tract symptoms; Z95.0 Presence of cardiac pacemaker; Z95.2 Presence of prosthetic heart valve; Z87.19 Personal history of other diseases of the digestive system; Z79.899 Other long term (current) drug therapy; Z79.82 Long term (current) use of aspirin; Z79.01 Long term (current) use of anticoagulants; Z88.0 Allergy status to penicillin; E78.5 Hyperlipidemia, unspecified; E11.22 Type 2 diabetes mellitus with diabetic chronic kidney disease; Z87.01 Personal history of pneumonia (recurrent); Z91.14 Patient's other noncompliance with medication regimen; I48.0 Paroxysmal atrial fibrillation; N18.3 Chronic kidney disease, stage 3 (moderate); D69.6 Thrombocytopenia, unspecified

== ENCOUNTER 2016-12-17 14:52 | Emergency (ER) | payer OTHER ==
[~2016-12-17] VITALS: Ht 167.6 cm; Wt 77.0 kg
[~2016-12-17 14:52] MED LIST changes: +ASPI81TA28 PO; +FURO-85 PO; +HYDCR25 TOP; -HYG/25 PO; -LISI2.5T5 PO; +NTRGSL/4 UT; +POTA20TA16 PO; +WARF5TAB7 PO
[2016-12-17 14:56] VITALS: TEMP 36.5; Ht 167.6 cm; Wt 77.0 kg
[2016-12-17] MEDS ORDERED: LSX20 PO (15:06)
[2016-12-17] MEDS ORDERED: POTA20TA13 PO (15:06)
[2016-12-17] MEDS ORDERED: TPRSR/50 PO (15:06)
[2016-12-17] MEDS ORDERED: LPT40 PO (15:06)
[2016-12-17] MEDS ORDERED: WARF-246 PO (15:09)
[2016-12-17] MEDS ORDERED: FERR1TAB62 PO (15:10)
--- NOTE | 2016-12-17 15:12 | EMERGENCY ROOM VISIT NOTE ---
ED Visit Note First contact with patient: 14:58 CHIEF COMPLAINT: Tick bite HISTORY OF PRESENT ILLNESS: This 86 year old male patient presents to the emergency department ambulatory after they noticed a tick embedded in the left arm since yesterday. The patient did not try to remove it. It had been on for at least 24 hours. The patient's tetanus shot is up-to-date. The patient denies any rashes, fevers, chills, or lightheadedness. The patient denies joint tenderness. REVIEW OF SYSTEMS: A 6 system review of systems was completed with positives and pertinent negatives listed in the HPI. ALLERGIES: Penicillin MEDICATIONS: See nursing notes PMH: Hypertension, hyperlipidemia, anticoagulation, the patient is not able to describe his exact medical conditions but states he sees Dr. Gomez SOCIAL HISTORY: The patient lives locally. He does not smoke PHYSICAL EXAM: Vital Signs: Reviewed Nurse's notes, vital signs stable. GENERAL : This is a 86-year-old male, in no acute distress, well-developed, well- nourished. SKIN: There is a tick embedded in the patient's left arm. There is a small zone of inflammation and ecchymosis around the spot where the tick is. The skin is otherwise clear. NEUROLOGICAL: Alert and oriented to person place and time, cooperative. Sensory and motor functions grossly intact. ED COURSE: I examined the patient. A tick twister was used to remove the tick. The whole head was removed. There was no bleeding. The patient tolerated the procedure well. The area was dressed with bacitracin and a bandage. The patient was given doxycycline 200 mg p.o. for prophylaxis. The patient was discharged home in good condition. The patient was also seen and examined by who agrees with the assessment and treatment plan. DIAGNOSIS: Tick bite and removal DISCHARGE INSTRUCTIONS & TREATMENT: Watch the area for signs of infection. Keep bacitracin on it for 2 days. Follow up with family doctor if he develops symptoms of a target rash, fever, chills, lightheadedness, or joint pain. Problem List Medical Problems: (1) CKD (chronic kidney disease) stage 3, GFR 30-59 ml/min Status: Chronic (2) CVA (cerebral vascular accident) Status: Resolved (3) Diabetes mellitus type II, controlled Status: Chronic (4) Dyslipidemia Status: Chronic (5) History of bladder cancer Permanent Comment: s/p tumor resection Status: Chronic (6) HTN (hypertension) Status: Chronic (7) Pacemaker Status: Resolved (8) Paroxysmal atrial fibrillation Status: Chronic Surgical Problems: (1) H/O cataract removal with insertion of prosthetic lens Status: Resolved (2) History of arthroplasty of left knee Status: Resolved (3) History of bladder surgery Permanent Comment: bladder tumor removal 1997 Status: Resolved (4) History of inguinal hernia repair Status: Resolved (5) History of open reduction and internal fixation (ORIF) procedure Permanent Comment: REPAIR NONUNION MALUNION TIBIA performed by Familia Sawant MD at [facility] 02/2014 Status: Resolved (6) History of tonsillectomy Status: Resolved (7) S/P AVR Status: Resolved (8) S/P CABG x 4 Status: Resolved (9) S/P rotator cuff repair Status: Resolved (10) S/P TURP (status post transurethral resection of prostate) Status: Resolved Current/Historical Medications Scheduled Amiodarone Hcl (Cordarone), 200 MG PO BID Aspirin (Aspirin Ec), 81 MG PO DAILY Atorvastatin (Atorvastatin Calcium), 40 MG PO DAILY Ferrous Sulfate (Ferrous Sulfate), 325 MG PO BID Furosemide (Furosemide), 40 MG PO DAILY Hydrocortisone (Hydrocortisone), 1 APPLN TOP BID Mesalamine (Lialda), 1.2 GM PO UD Metoprolol Succinate (Metoprolol Succinate ER), 50 MG PO BID Potassium Chloride Microencaps (Potassium Chloride Er), 20 MEQ PO DAILY Warfarin Sodium (Warfarin Sodium), 2.5 MG PO DAILY Scheduled PRN Acetaminophen (Tylenol), 650 MG PO Q4H PRN for Pain Alprostadil (Vasodilator) ([place]), 1 SUPP UR UD PRN for erectile dysfunction Nitroglycerin (Nitrostat), 0.4 MG UT UD PRN for Chest Pain Allergies Coded Allergies: Penicillins (Verified Allergy, Mild, ITCHING, 11/04/16) Vital Signs Date Time Temp Pulse Resp B/P Pulse Ox O2 Delivery O2 Flow Rate FiO2 12/17/16 15:48 61 18 151/76 91 12/17/16 14:56 36.5 60 18 159/69 94 Room Air Medications Administered Medications (Trade) Dose Ordered Sig/Avinash Route Start Time Stop Time Status Last Admin Dose Admin Doxycycline Hyclate (Vibramycin Cap) 200 mg ONE ONCE PO 12/17/16 15:15 12/17/16 15:16 DC 12/17/16 15:47 200 MG Departure Information Impression Primary Impression: Tick bite Dispostion Home / Self-Care Condition GOOD Referrals Melo Bañuelos III, M.D. (PCP) Patient Instructions ED Facts Tick, [facility] Additional Instructions Watch the area for signs of infection. Keep bacitracin on it for 2 days. Follow up with family doctor if he develops symptoms of a target rash, fever, chills, lightheadedness, or joint pain.
[2016-12-17] MEDS ORDERED: DOXYCYCLINE HYCLATE 100 MG CAP PO ONE (15:15)
--- NOTE | 2016-12-17 15:22 | EMERGENCY ROOM VISIT NOTE ---
ED Visit Note First contact with patient: 14:58 This Patient was discussed with the physician Certified Driver Examiner, Liz Barth PA-C. The pertinent historical and physical exam findings were confirmed. I agree with the studies ordered and with the interpretations of these studies. I agree with the disposition and care plan.
[2016-12-17 15:48] VITALS: BP 151/76; PULSE 61; O2SAT 91
[2016-12-17] MEDS ORDERED: MESA1.2T PO (21:27)
[2016-12-17] MEDS ORDERED: ALPR1SUP6 UR (22:16)
[2016-12-17] MEDS ORDERED: ACET-1311 PO (22:16)
[2016-12-17] MEDS ORDERED: AMIO200T4 PO (22:16)
== END 2016-12-17 15:50 | disposition home or self-care (01) ==
LOC: C.EDB 14:53 → C.EDD 15:50
DX: S30.861A Insect bite (nonvenomous) of abdominal wall, initial encounter (principal); W57.XXXA Bitten or stung by nonvenomous insect and other nonvenomous arthropods, initial encounter; I10 Essential (primary) hypertension; E78.5 Hyperlipidemia, unspecified; N18.3 Chronic kidney disease, stage 3 (moderate); I63.9 Cerebral infarction, unspecified; E11.9 Type 2 diabetes mellitus without complications; I48.0 Paroxysmal atrial fibrillation; Z79.82 Long term (current) use of aspirin; Z79.01 Long term (current) use of anticoagulants; Z51.81 Encounter for therapeutic drug level monitoring

== ENCOUNTER 2017-02-07 08:18 | Emergency (ER) | payer OTHER ==
[~2017-02-07] VITALS: Ht 170.2 cm; Wt 77.0 kg
[~2017-02-07 08:18] MED LIST changes: +ACET-1311 PO; +ALPR1SUP6 UR; +AMIO200T4 PO; -ATOR-24 PO; -DSWCR TOP; -FERR1TAB13 PO; +FERR325T PO; -FURO-85 PO; +LPT40 PO; +LSX20 PO; +MESA1.2T PO; -METO25TA3 PO; +POTA20TA13 PO; -POTA20TA16 PO; +TPRSR/50 PO; +WARF-246 PO; -WARF5TAB7 PO
[2017-02-07 08:33] VITALS: TEMP 36.6; Ht 170.2 cm; Wt 77.0 kg
[2017-02-07] MEDS ORDERED: DIPHTHERIA/TETANUS/PERTUSSIS 0.5 ML SYR/VIAL IM. ONE (09:00)
[2017-02-07] MEDS ORDERED: XYLOCAINE 1%/SOD BICARB 20 ML VIAL INFIL ONE (09:00)
--- NOTE | 2017-02-07 09:01 | EMERGENCY ROOM VISIT NOTE ---
History First contact with patient: 08:49 Chief Complaint: FALL Stated Complaint: FELL,HIT HEAD ON CONCRETE,INJURED L SIDE OF FACE History of Present Illness The patient is an 86 year old male who presents to the Emergency Room with complaints of fall. The patient states that he was chasing after a kitten and fell forward, striking his face on the concrete. He reports large lacerations to the left side of the face. He reports a headache. He rates discomfort as 6/ 10. He denies any loss of consciousness, nausea or vomiting. He denies any neck pain. He denies any syncope, chest pain, trouble breathing. He denies any abdominal pain. He denies any extremity pain. He does take Coumadin which she states is for his heart. He does not know if his tetanus is up-to-date. Review of Systems A 10 system review of systems was completed with positives and pertinent negatives listed in the HPI. 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 (5) CVA (cerebral vascular accident) (6) Diab Annelise Wo Compl, Type Ii Or Unspec Type, Not Uncntrld (7) Diabetes mellitus type II, controlled (8) Dyslipidemia (9) History of bladder cancer (10) History Of Tobacco Use (11) HTN (hypertension) (12) Hyperlipidemia Nec/Nos (13) Hypertension Nos (14) Hypertrophy Of Prostate (Benign) (15) [place] Bladder-Post (16) Pacemaker (17) Paroxysmal atrial fibrillation Surgical Problems: (1) Aortocoronary Bypass (2) H/O cataract removal with insertion of prosthetic lens (3) History of arthroplasty of left knee (4) History of bladder surgery (5) History of inguinal hernia repair (6) History of open reduction and internal fixation (ORIF) procedure (7) History of tonsillectomy (8) Knee Joint Replacement Status (9) S/P AVR (10) S/P CABG x 4 (11) S/P rotator cuff repair (12) S/P TURP (status post transurethral resection of prostate) Family History Insignificant due to advanced age Social History Smoking Status: Former Smoker Alcohol Use: none Drug Use: none Marital Status: Occupation Status: retired Current/Historical Medications Scheduled Amiodarone Hcl (Cordarone), 200 MG PO TID Aspirin (Aspirin Ec), 81 MG PO DAILY Atorvastatin (Atorvastatin Calcium), 40 MG PO DAILY Cefdinir (Omnicef), 300 MG PO DAILY Furosemide (Lasix), 40 MG PO QAM Furosemide (Lasix), 20 MG PO AFTERNOON Mesalamine (Lialda), 1.2 GM PO BID Metoprolol Succinate (Metoprolol Succinate ER), 50 MG PO BID Potassium Chloride Microencaps (Potassium Chloride Er), 20 MEQ PO DAILY Warfarin Sodium (Warfarin Sodium), 5 MG PO QPM Scheduled PRN Alprostadil (Vasodilator) ([place]), 1 SUPP UR UD PRN for erectile dysfunction Nitroglycerin (Nitrostat), 0.4 MG UT UD PRN for Chest Pain Allergies Coded Allergies: Penicillins (Verified Allergy, Mild, ITCHING, 11/04/16) Physical Exam Vital Signs Date Time Temp Pulse Resp B/P (MAP) Pulse Ox O2 Delivery O2 Flow Rate FiO2 02/07/17 12:34 60 20 157/72 92 Room Air 02/07/17 10:22 58 20 148/67 92 Room Air 02/07/17 08:33 36.6 60 18 148/67 93 Room Air Physical Exam VITALS: Vitals are noted on the nurse's note and reviewed by myself. Vital signs stable. GENERAL: This is an 86-year-old male, in no acute distress, nondiaphoretic, well -developed well-nourished. SKIN: There are 2 large, complex lacerations to the left side of the face totaling approximately 10 cm in length. There is a small 0.5 cm laceration just lateral to the left eye. There is mild bleeding. There is no tenting of the skin. Capillary reflex less than 2 seconds. HEAD: Normocephalic atraumatic. EARS: External auditory canals clear, tympanic membranes pearly dye without erythema or effusion bilaterally. No hemotympanums. No barahona sign. No mastoid tenderness. EYES: Pupils equal round and reactive to light and accommodation. Conjunctivae without injection, sclerae without icterus. Extraocular movements intact. Fundoscopic exam without hemorrhages or papilledema. NOSE: Patent, turbinates without inflammation or discharge. No sinus tenderness. No septal hematoma or bleeding. FACE: No facial tenderness. Full range of motion of the jaw without tenderness. MOUTH: Mucous membranes moist. Pharynx without erythema or exudate. Uvula midline. Airway patent. Tongue does not deviate. NECK: Supple without nuchal rigidity. Cervical spine is nontender. Full range of motion of the neck without tenderness. No JVD. HEART: Regular rate and rhythm without murmurs gallops or rubs. LUNGS: Clear to auscultation bilaterally without wheezes, rales or rhonchi. No retractions or accessory muscle use. No chest tenderness. ABDOMEN: Positive bowel sounds x 4. Soft, nontender, without masses or organomegaly. MUSCULOSKELETAL: No muscle atrophy, erythema, or edema noted. Full range of motion without joint tenderness in all extremities. No tenderness to palpation. Strength 5/5 throughout. NEURO: Patient was alert and oriented to person place and time. No focal neurological deficits. Medical Decision & Procedures ER Provider Diagnostic Interpretation: RIGHT HAND 3 VIEWS CLINICAL HISTORY: Fall with right hand pain. FINDINGS: 3 views of the right hand are obtained. No prior studies are available for comparison at the time of dictation. The skeletal structures are osteopenic. No fracture is seen. There is moderate arthritic change at the first carpometacarpal articulation with bony overgrowth and sclerosis. Mild osteoarthritic change is seen involving the interphalangeal joints. There is chondrocalcinosis of the triangular fibrocartilage. Mild dorsal soft tissue edema is observed. Atherosclerotic calcification is noted in the regional arteries. IMPRESSION: 1. Mild dorsal soft tissue edema. No fracture is identified. 2. Osteopenia and arthritic change as above. CERVICAL SPINE CT CT DOSE: 1167.08 mGy.cm HISTORY: Neck pain. fall TECHNIQUE: Multiaxial CT images of the cervical spine were performed and reformatted in the sagittal and coronal plane without the use of contrast. COMPARISON: None. FINDINGS: No fractures. Prevertebral soft tissues and the C1-C2 interval are intact. No pneumothorax. A nonspecific subcutaneous 1.9 cm nodule within the posterior neck at the C1 level. Mild emphysema. Mild disc space narrowing at C4-C5 with 1 mm of anterolisthesis. This is likely due to long-standing degenerative change. Moderate disc space narrowing at C5-C6 and severe disc space narrowing at C6-C7. IMPRESSION: No fractures within the cervical spine. CT SCAN OF THE BRAIN WITHOUT IV CONTRAST CLINICAL HISTORY: Fall. Head injury. COMPARISON STUDY: CT of the brain dated 08/12/2016. TECHNIQUE: Unenhanced axial CT scan of the brain is performed from the vertex to the skull base. FINDINGS: Brain parenchyma: There are age-related involutional changes noting mild subcortical and periventricular microangiopathic change. Right cerebellar encephalomalacia is unchanged and consistent with remote infarct. There is no hemorrhage, mass effect, or evidence of acute territorial ischemia by CT criteria. Dye-white matter is preserved. No extra-axial fluid collection is seen. Ventricles, sulci, cisterns: Prominent secondary to involutional change. Intracranial vasculature: There is atherosclerotic calcification of the cavernous carotid and vertebral arteries. Calvarium: The skeletal structures are osteopenic. No depressed calvarial fracture is seen. Soft tissues: There is a left periorbital scalp contusion and laceration. Sinuses and mastoids: The visualized paranasal sinuses are clear. The mastoid air cells are well pneumatized. Orbits: The bony orbits are grossly intact. There are bilateral ocular lens implants. IMPRESSION: There is no hemorrhage, mass effect, or evidence of acute territorial ischemia by CT criteria. T SCAN OF THE FACIAL BONES WITHOUT IV CONTRAST CLINICAL HISTORY: Fall with left facial injury. COMPARISON STUDY: CT scan of the paranasal sinuses dated 06/08/2016. TECHNIQUE: High-resolution CT scan of the facial bones is performed. Images are reviewed in the axial, sagittal, and coronal planes. IV contrast was not administered for this examination. FINDINGS: The skeletal structures are osteopenic. There is no evidence of facial bone fracture. The bony orbits are intact and the orbital contents are within normal limits noting bilateral ocular lens implants. The zygomatic arches, nasal bones, and pterygoid plates are preserved. Chronic deformity of the anterior maxilla is similar to previous. The maxilla and mandible are otherwise intact. There are no layering blood products within the paranasal sinuses. Trace mucosal thickening is seen within the frontal sinuses and the left maxillary antrum. The remaining paranasal sinuses and the mastoid air cells are clear. The visualized calvarium and upper cervical spine are intact. Advanced cervical spondylosis is partially imaged. Right cerebellar encephalomalacia is consistent with a remote infarct. There is age-related involutional change. Atherosclerotic calcification is noted in the cavernous carotid and vertebral arteries. There is a left periorbital and supraorbital scalp contusion/laceration. IMPRESSION: 1. There is no evidence of facial bone fracture. 2. Left periorbital/supraorbital scalp contusion and laceration. Laboratory Results Test 02/07/17 13:11 Bedside Prothrombin Time INR 1.8 (0.9-1.1) Medications Administered Medications (Trade) Dose Ordered Sig/Avinash Route Start Time Stop Time Status Last Admin Dose Admin Diphtheria/ Pertussis/Tetanus Vacc (Adacel Inj) 0.5 ml ONCE ONCE IM. 02/07/17 09:00 02/07/17 09:01 DC 02/07/17 09:08 0.5 ML Lidocaine HCl (Buffered Lidocaine 1% Inj) 20 ml NOW ONCE INFIL 02/07/17 09:00 02/07/17 09:01 DC 02/07/17 09:07 20 ML Procedure 3. Complex, irregular and stellate lacerations to the left side of the face which totaled 10.5 cm in length were repaired. This was a very prolonged and complex repair which took at least 2 hours. Using sterile technique the wound was cleaned with Betadine. The area was sterilely draped. 6 ml of 1% buffered lidocaine was used to anesthetize the skin. Once the patient was numb, the wound was copiously irrigated under pressure with sterile saline. There were small particulates of dirt that were irrigated with saline. The wounds were explored and there were no deep structures such as tendons, bone, or ligaments present. There was a small arterial bleed in the largest laceration above the left brow. This was ligated using 5-0 chromic simple interrupted sutures. The subcuticular tissues of the largest laceration were closed using 5 simple interrupted subcuticular sutures with 5-0 chromic. The lacerations were meticulously closed using well over 30 simple interrupted and pursestring 6-0 nylon sutures. with the wound edges being well approximated. The patient tolerated the procedure well. The bleeding stopped. The area was cleaned with sterile saline and dressed with bacitracin ointment and bandage. ED Course The patient presents to the emergency department for a mechanical fall. The patient underwent the above imaging. There is no evidence for intracranial bleeding, skull fracture. There is no evidence for cervical spine fracture or facial fracture. There is no evidence for fracture to the right hand. Lacerations that were very complex were repaired as above and as best as could be approximated. The wounds were slightly contaminated and he will be placed on Omnicef once daily for 5 days to help prevent infection. This medication and dose were chosen after consultation with the emergency Department pharmacist given the patient's baseline renal insufficiency. The patient should have the sutures removed in 7 days. The patient does take Coumadin. His INR was 1.8. He was advised to follow closely with the Coumadin clinic as the Omnicef could raise the INR. He should return to the ER with any worsening headache, vomiting, change in mental status, redness, swelling, warmth, drainage of pus. The patient was also seen and examined by who agrees with the assessment and treatment plan. Medical Decision The differential diagnosis includes intracranial bleeding, skull fracture, contusion, concussion, cervical spine fracture, cervical sprain, facial fracture , facial contusion, laceration, extremity fracture, among others Impression Primary Impression: Fall Additional Impressions: Facial laceration Hand contusion Head injury Facial contusion Departure Information Dispostion Home / Self-Care Condition GOOD Prescriptions Cefdinir (Omnicef) 300 Mg Cap 300 MG PO DAILY for 5 Days, #5 CAP Prov: Oksana Barth PA-C 02/07/17 Referrals No Doctor, Assigned (PCP) Patient Instructions ED Head Injury Closed, ED Laceration [facility] Additional Instructions Omnicef once daily for 5 days to help prevent infection Follow-up with the Coumadin clinic Read head injury handout Keep wound clean and dry. Do not allow any crusting or dried blood to accumulate on sutures. If this occurs, use a 1:1 solution of hydrogen peroxide/ water on a Q-tip to clean the wound. Use an antibiotic ointment for 3-4 days, then let wound dry. Suture removal in 7 days. Return sooner for any signs of infection (increasing redness, swelling, drainage). Ice and elevate for swelling and pain. Keep covered when in sun until sutures removed then SPF 50 or higher for one year. Vitamin E oil if desired two weeks after suture removal for reduction of scar. Problem Qualifiers Primary Impression: Fall Encounter type: initial encounter Qualified Codes: W19.XXXA - Unspecified fall, initial encounter Additional Impressions: Facial laceration Encounter type: initial encounter Qualified Codes: S01.81XA - Laceration without foreign body of other part of head, initial encounter Hand contusion Encounter type: initial encounter Laterality: right Qualified Codes: S60.221A - Contusion of right hand, initial encounter Head injury Encounter type: initial encounter Qualified Codes: S09.90XA - Unspecified injury of head, initial encounter Facial contusion Encounter type: initial encounter Qualified Codes: S00.83XA - Contusion of other part of head, initial encounter
--- NOTE | 2017-02-07 09:51 | DIAGNOSTIC IMAGING REPORT ---
CT SCAN OF THE BRAIN WITHOUT IV CONTRAST CLINICAL HISTORY: Fall. Head injury. COMPARISON STUDY: CT of the brain dated 08/12/2016. TECHNIQUE: Unenhanced axial CT scan of the brain is performed from the vertex to the skull base. FINDINGS: Brain parenchyma: There are age-related involutional changes noting mild subcortical and periventricular microangiopathic change. Right cerebellar encephalomalacia is unchanged and consistent with remote infarct. There is no hemorrhage, mass effect, or evidence of acute territorial ischemia by CT criteria. Dye-white matter is preserved. No extra-axial fluid collection is seen. Ventricles, sulci, cisterns: Prominent secondary to involutional change. Intracranial vasculature: There is atherosclerotic calcification of the cavernous carotid and vertebral arteries. Calvarium: The skeletal structures are osteopenic. No depressed calvarial fracture is seen. Soft tissues: There is a left periorbital scalp contusion and laceration. Sinuses and mastoids: The visualized paranasal sinuses are clear. The mastoid air cells are well pneumatized. Orbits: The bony orbits are grossly intact. There are bilateral ocular lens implants. IMPRESSION: There is no hemorrhage, mass effect, or evidence of acute territorial ischemia by CT criteria. Electronically signed by: Andre Raymundo M.D. 02/07/2017 9:49 AM Dictated Date/Time: 02/07/2017 9:47 AM
--- NOTE | 2017-02-07 09:56 | DIAGNOSTIC IMAGING REPORT ---
CERVICAL SPINE CT CT DOSE: 1167.08 mGy.cm HISTORY: Neck pain. fall TECHNIQUE: Multiaxial CT images of the cervical spine were performed and reformatted in the sagittal and coronal plane without the use of contrast. COMPARISON: None. FINDINGS: No fractures. Prevertebral soft tissues and the C1-C2 interval are intact. No pneumothorax. A nonspecific subcutaneous 1.9 cm nodule within the posterior neck at the C1 level. Mild emphysema. Mild disc space narrowing at C4-C5 with 1 mm of anterolisthesis. This is likely due to long-standing degenerative change. Moderate disc space narrowing at C5-C6 and severe disc space narrowing at C6-C7. IMPRESSION: No fractures within the cervical spine. Electronically signed by: Jesus He M.D. 02/07/2017 9:54 AM Dictated Date/Time: 02/07/2017 9:49 AM
--- NOTE | 2017-02-07 09:56 | DIAGNOSTIC IMAGING REPORT ---
CT SCAN OF THE FACIAL BONES WITHOUT IV CONTRAST CLINICAL HISTORY: Fall with left facial injury. COMPARISON STUDY: CT scan of the paranasal sinuses dated 06/08/2016. TECHNIQUE: High-resolution CT scan of the facial bones is performed. Images are reviewed in the axial, sagittal, and coronal planes. IV contrast was not administered for this examination. FINDINGS: The skeletal structures are osteopenic. There is no evidence of facial bone fracture. The bony orbits are intact and the orbital contents are within normal limits noting bilateral ocular lens implants. The zygomatic arches, nasal bones, and pterygoid plates are preserved. Chronic deformity of the anterior maxilla is similar to previous. The maxilla and mandible are otherwise intact. There are no layering blood products within the paranasal sinuses. Trace mucosal thickening is seen within the frontal sinuses and the left maxillary antrum. The remaining paranasal sinuses and the mastoid air cells are clear. The visualized calvarium and upper cervical spine are intact. Advanced cervical spondylosis is partially imaged. Right cerebellar encephalomalacia is consistent with a remote infarct. There is age-related involutional change. Atherosclerotic calcification is noted in the cavernous carotid and vertebral arteries. There is a left periorbital and supraorbital scalp contusion/laceration. IMPRESSION: 1. There is no evidence of facial bone fracture. 2. Left periorbital/supraorbital scalp contusion and laceration. Electronically signed by: Andre Raymundo M.D. 02/07/2017 9:55 AM Dictated Date/Time: 02/07/2017 9:50 AM
--- NOTE | 2017-02-07 10:14 | DIAGNOSTIC IMAGING REPORT ---
RIGHT HAND 3 VIEWS CLINICAL HISTORY: Fall with right hand pain. FINDINGS: 3 views of the right hand are obtained. No prior studies are available for comparison at the time of dictation. The skeletal structures are osteopenic. No fracture is seen. There is moderate arthritic change at the first carpometacarpal articulation with bony overgrowth and sclerosis. Mild osteoarthritic change is seen involving the interphalangeal joints. There is chondrocalcinosis of the triangular fibrocartilage. Mild dorsal soft tissue edema is observed. Atherosclerotic calcification is noted in the regional arteries. IMPRESSION: 1. Mild dorsal soft tissue edema. No fracture is identified. 2. Osteopenia and arthritic change as above. Electronically signed by: Andre Raymundo M.D. 02/07/2017 10:13 AM Dictated Date/Time: 02/07/2017 10:11 AM
[2017-02-07] MEDS ORDERED: MESA1.2T PO (10:44)
[2017-02-07] MEDS ORDERED: FURO-85 PO ×2 (10:44)
[2017-02-07 12:34] VITALS: BP 157/72; PULSE 60; O2SAT 92
[2017-02-07] MEDS ORDERED: CEFD1CAP14 PO (13:03)
== END 2017-02-07 14:14 | disposition home or self-care (01) ==
LOC: C.EDB 08:19
DX: S01.81XA Laceration without foreign body of other part of head, initial encounter (principal); S60.221A Contusion of right hand, initial encounter; W19.XXXA Unspecified fall, initial encounter; W22.09XA Striking against other stationary object, initial encounter; Z79.01 Long term (current) use of anticoagulants; N18.3 Chronic kidney disease, stage 3 (moderate); I12.9 Hypertensive chronic kidney disease with stage 1 through stage 4 chronic kidney disease, or unspecified chronic kidney disease; I25.10 Atherosclerotic heart disease of native coronary artery without angina pectoris; Z86.73 Personal history of transient ischemic attack (TIA), and cerebral infarction without residual deficits; E11.9 Type 2 diabetes mellitus without complications; E78.5 Hyperlipidemia, unspecified; Z85.51 Personal history of malignant neoplasm of bladder; Z87.891 Personal history of nicotine dependence; Z95.0 Presence of cardiac pacemaker; I48.0 Paroxysmal atrial fibrillation; Z95.1 Presence of aortocoronary bypass graft; Z98.49 Cataract extraction status, unspecified eye; Z96.1 Presence of intraocular lens; Z96.659 Presence of unspecified artificial knee joint; Z79.82 Long term (current) use of aspirin; Z79.899 Other long term (current) drug therapy; Z23 Encounter for immunization

== ENCOUNTER 2017-02-19 10:15 | Emergency (ER) | payer OTHER ==
[~2017-02-19] VITALS: Ht 170.2 cm; Wt 79.4 kg
[~2017-02-19 10:15] MED LIST changes: -ACET-1311 PO; -FERR325T PO; +FURO-85 PO; -HYDCR25 TOP; -LSX20 PO
[2017-02-19 10:23] VITALS: TEMP 36.6; Ht 170.2 cm; Wt 79.4 kg
--- NOTE | 2017-02-19 12:07 | EMERGENCY ROOM VISIT NOTE ---
ED Visit Note First contact with patient: 10:35 CHIEF COMPLAINT: Suture removal HISTORY OF PRESENT ILLNESS: This 86-year-old male patient returns to the ED today for removal of sutures that were placed 12 days ago. There has been no swelling, redness, or drainage from the wound. The patient did not want to change the dressing were clean the wound in the last 12 days. He was supposed to have the sutures removed in 7 days. He went to his family doctor today and was referred to the ER because the dressing was stuck. The patient feels like the laceration is healing well. REVIEW OF SYSTEMS: A 6 system review of systems was completed with positives and pertinent negatives listed in the HPI. PMH: Unchanged from previous visit. ALLERGIES: Penicillin. PHYSICAL EXAM: Vital Signs: Reviewed Nurse's notes, vital signs stable. GENERAL : This is an 86-year-old male, in no acute distress. SKIN: There is a sutured wound on the face with no signs of infection. There is some scab noted. There is minimal dehiscence. EMERGENCY DEPARTMENT COURSE: The sutures were removed without any difficulty and there was minimal separation of the wound edges. Steri strips were applied. The patient was discharged home in good condition. DIAGNOSIS: Healing laceration and suture removal DISCHARGE INSTRUCTIONS AND TREATMENT: Wash any remaining crusts off of the wound today and resume your normal activities. The steri strips should come off in 5-7 days, recheck with your family doctor in 3-5 days. Problem List Medical Problems: (1) CKD (chronic kidney disease) stage 3, GFR 30-59 ml/min Status: Chronic (2) CVA (cerebral vascular accident) Status: Resolved (3) Diabetes mellitus type II, controlled Status: Chronic (4) Dyslipidemia Status: Chronic (5) History of bladder cancer Permanent Comment: s/p tumor resection Status: Chronic (6) HTN (hypertension) Status: Chronic (7) Pacemaker Status: Resolved (8) Paroxysmal atrial fibrillation Status: Chronic Surgical Problems: (1) H/O cataract removal with insertion of prosthetic lens Status: Resolved (2) History of arthroplasty of left knee Status: Resolved (3) History of bladder surgery Permanent Comment: bladder tumor removal 1997 Status: Resolved (4) History of inguinal hernia repair Status: Resolved (5) History of open reduction and internal fixation (ORIF) procedure Permanent Comment: REPAIR NONUNION MALUNION TIBIA performed by Familia Sawant MD at [facility] 02/2014 Status: Resolved (6) History of tonsillectomy Status: Resolved (7) S/P AVR Status: Resolved (8) S/P CABG x 4 Status: Resolved (9) S/P rotator cuff repair Status: Resolved (10) S/P TURP (status post transurethral resection of prostate) Status: Resolved Current/Historical Medications Scheduled Amiodarone Hcl (Cordarone), 200 MG PO TID Aspirin (Aspirin Ec), 81 MG PO DAILY Atorvastatin (Atorvastatin Calcium), 40 MG PO DAILY Furosemide (Lasix), 40 MG PO QAM Furosemide (Lasix), 20 MG PO AFTERNOON Mesalamine (Lialda), 1.2 GM PO BID Metoprolol Succinate (Metoprolol Succinate ER), 50 MG PO BID Potassium Chloride Microencaps (Potassium Chloride Er), 20 MEQ PO DAILY Warfarin Sodium (Warfarin Sodium), 5 MG PO QPM Scheduled PRN Alprostadil (Vasodilator) ([place]), 1 SUPP UR UD PRN for erectile dysfunction Nitroglycerin (Nitrostat), 0.4 MG UT UD PRN for Chest Pain Allergies Coded Allergies: Penicillins (Verified Allergy, Mild, ITCHING, 11/04/16) Vital Signs Date Time Temp Pulse Resp B/P (MAP) Pulse Ox O2 Delivery O2 Flow Rate FiO2 02/19/17 12:14 82 16 98 02/19/17 10:23 36.6 60 18 172/70 96 Room Air Departure Information Impression Primary Impression: Encounter for removal of sutures Dispostion Home / Self-Care Condition GOOD Referrals Melo Bañuelos III, M.D. (PCP) Patient Instructions My [facility] Additional Instructions Wash any remaining crusts off of the wound today and resume your normal activities. The steri strips should come off in 5-7 days, recheck with your family doctor in 3-5 days.
[2017-02-19 12:14] VITALS: BP 112/75; PULSE 82; O2SAT 98
== END 2017-02-19 12:25 | disposition home or self-care (01) ==
LOC: C.EDB 10:16 → C.EDC 12:25
DX: S01.81XD Laceration without foreign body of other part of head, subsequent encounter (principal); X58.XXXD Exposure to other specified factors, subsequent encounter

== ENCOUNTER 2017-09-08 12:46 | Inpatient (IN) | payer OTHER ==
[~2017-09-08] VITALS: Ht 167.6 cm; Wt 72.8 kg
[2017-09-08] MEDS ORDERED: FUROSEMIDE 40 MG/4 ML VIAL IV STA (12:53)
[2017-09-08 13:09] LABS: BASO % 0.2 %; BASO ABS # 0.02 K/uL (0-0.2); EOS % 1.8 %; EOS ABS # 0.16 K/uL (0-0.5); HEMATOCRIT 37.2 % (42-52); HEMOGLOBIN 11.9 g/dL (14.0-18.0); IG# 0.02 K/uL (0.00-0.02); LYMPH % 9.6 %; LYMPH ABS # 0.84 K/uL (1.2-3.4); MEAN CELL VOLUME 95.6 fL (80-100); MEAN CORPUSCULAR HEMOGLOBIN 30.6 pg (25-34); MEAN PLATELET VOLUME 12.8 fL (7.4-10.4); MONO % 10.8 %; MONO ABS # 0.95 K/uL (0.11-0.59); NEUT % 77.4 %; PLATELET COUNT 198 K/uL (130-400); RED CELL DISTRIBUTION WIDTH CV 15.7 % (11.5-14.5); RED CELL DISTRIBUTION WIDTH SD 54.6 fL (36.4-46.3); WHITE BLOOD COUNT 8.79 K/uL (4.8-10.8)
--- NOTE | 2017-09-08 13:14 | DIAGNOSTIC IMAGING REPORT ---
SINGLE VIEW CHEST CLINICAL HISTORY: Dyspnea. FINDINGS: An AP, portable, upright chest radiograph is compared to study dated 11/04/2016. The examination is degraded by portable technique and patient rotation. A 2-lead cardiac pacemaker is unchanged in position. The patient is status post midline sternotomy. There is evidence of cardiac valve surgery. The heart is enlarged and there is atherosclerotic calcification of the thoracic aorta. There is pulmonary vascular congestion and interstitial edema. There are small pleural effusions with bibasilar consolidation. No pneumothorax is seen. The skeletal structures are osteopenic. The bony thorax is grossly intact. IMPRESSION: 1. Cardiomegaly and cardiac pacemaker. There is evidence of congestive failure and interstitial edema. 2. Small pleural effusions with bibasilar consolidation. This likely represents atelectasis. Correlate clinically for evidence of superimposed pneumonia. Electronically signed by: Andre Raymundo M.D. 09/08/2017 1:13 PM Dictated Date/Time: 09/08/2017 1:11 PM
[2017-09-08 13:21] LABS: INR 1.8 (0.9-1.1); PTT PATIENT 31.5 SECONDS (21.0-31.0)
--- NOTE | 2017-09-08 13:21 | EMERGENCY ROOM VISIT NOTE ---
History Report prepared by Catie: Denilson Deluna Under the Supervision of: Dr. Marcell Teran M.D. First contact with patient: 12:48 Stated Complaint: EDEMA/SOB History of Present Illness The patient is an 86 year old white male with a past medical history of CHF, CKD , CVA, DM, Dyslipidemia, bladder cancer, HTN, HLD, pacemaker, A-fib, ORIF, AVR, CABG, and TURP who presents to the ED with a cc of worsening shortness of breath beginning a few weeks ago which is worsened with bending over and walking. He notes it is not worsened with laying down. Positive leg swelling. Negative coughs, fevers, chills, nausea, vomiting, and chest pain. He is not on oxygen at home. The patient additionally has gained 13 pounds, and he is currently on 10mg of Lasix. Source of History: patient Onset: few weeks Position: other (global) Quality: other (shortness of breath) Timing: worsening Modifying Factors (Worsening): other (bending over and walking) Associated Symptoms: No fevers, No chills, No cough, No chest pain, No nausea, No vomiting Review of Systems See HPI for pertinent positives and negatives. A total of ten systems were reviewed and were otherwise negative. Past Medical & Surgical Medical Problems: (1) CHF exacerbation (2) CKD (chronic kidney disease) stage 3, GFR 30-59 ml/min (3) Congestive Heart Failure (4) Coron Atheroscler Nos Type Vessel, Wainwright Or Graft (5) CVA (cerebral vascular accident) (6) Diab Annelise Wo Compl, Type Ii Or Unspec Type, Not Uncntrld (7) Diabetes mellitus type II, controlled (8) Dyslipidemia (9) History of bladder cancer (10) History Of Tobacco Use (11) HTN (hypertension) (12) Hyperlipidemia Nec/Nos (13) Hypertension Nos (14) Hypertrophy Of Prostate (Benign) (15) [place] Bladder-Post (16) Pacemaker (17) Paroxysmal atrial fibrillation Surgical Problems: (1) Aortocoronary Bypass (2) H/O cataract removal with insertion of prosthetic lens (3) History of arthroplasty of left knee (4) History of bladder surgery (5) History of inguinal hernia repair (6) History of open reduction and internal fixation (ORIF) procedure (7) History of tonsillectomy (8) Knee Joint Replacement Status (9) S/P AVR (10) S/P CABG x 4 (11) S/P rotator cuff repair (12) S/P TURP (status post transurethral resection of prostate) Family History Insignificant due to advanced age Social History Smoking Status: Never Smoker Alcohol Use: none Drug Use: none Marital Status: Occupation Status: retired Current/Historical Medications Scheduled Amiodarone Hcl (Cordarone), 200 MG PO DAILY Amlodipine (Norvasc), 5 MG PO DAILY Aspirin (Aspirin Ec), 81 MG PO DAILY Atorvastatin (Lipitor), 40 MG PO DAILY Clindamycin Hcl (Cleocin), 600 MG PO UD Desonide 0.05% ([place]en 0.05%), 1 APPLN TOP BID Ferrous Sulfate (Kp Ferrous Sulfate), 1 TAB PO BID Furosemide (Lasix), 0.5 TAB PO DAILY Hydrocortisone (Topical) (Hydrocortisone), 1 APPLN TOP BID Levothyroxine Sodium (Levothyroxine Sodium), 0.5 TAB PO QAM Mesalamine (Lialda), 1.2 GM PO BID Metoprolol Succinate (Toprol Xl), 50 MG PO BID Potassium Chloride Microencaps (Potassium Chloride Er), 20 MEQ PO DAILY Warfarin Sodium (Warfarin Sodium), 0.5 MG PO QPM Scheduled PRN Nitroglycerin (Nitrostat), 0.4 MG UT UD PRN for Chest Pain Allergies Coded Allergies: Penicillins (Verified Allergy, Mild, ITCHING, 09/08/17) Physical Exam Vital Signs Date Time Temp Pulse Resp B/P (MAP) Pulse Ox O2 Delivery O2 Flow Rate FiO2 09/08/17 14:42 63 20 137/109 96 Nasal Cannula 2.0 09/08/17 13:57 63 16 184/83 97 Nasal Cannula 2.0 09/08/17 13:04 36.5 61 16 183/87 90 Room Air 09/08/17 13:04 90 Room Air 09/08/17 12:57 60 09/08/17 12:50 96 Nasal Cannula 2.0 Physical Exam GENERAL: Awake, alert, well-appearing, NAD, nasal cannula in place. HENT: Normocephalic, atraumatic. EYES: Normal conjunctiva. Sclera non-icteric. NECK: Supple. No nuchal rigidity. FROM. RESPIRATORY: Mild tachypnea, shallow breaths, bibasilar crackles, dyspnea with speaking full sentences. CARDIAC: RRR, no MRG ABDOMEN: Soft, NTND, BS+ MSK: No chest wall TTP, 4+ LE edema. NEURO: GCS 15, CN 2-12 intact, moves all 4s on command SKIN: No rash or jaundice noted. Medical Decision & Procedures ER Provider Diagnostic Interpretation: Radiology results as stated below per my review and radiologist interpretation: SINGLE VIEW CHEST CLINICAL HISTORY: Dyspnea. FINDINGS: An AP, portable, upright chest radiograph is compared to study dated 11/04/2016. The examination is degraded by portable technique and patient rotation. A 2-lead cardiac pacemaker is unchanged in position. The patient is status post midline sternotomy. There is evidence of cardiac valve surgery. The heart is enlarged and there is atherosclerotic calcification of the thoracic aorta. There is pulmonary vascular congestion and interstitial edema. There are small pleural effusions with bibasilar consolidation. No pneumothorax is seen. The skeletal structures are osteopenic. The bony thorax is grossly intact. IMPRESSION: 1. Cardiomegaly and cardiac pacemaker. There is evidence of congestive failure and interstitial edema. 2. Small pleural effusions with bibasilar consolidation. This likely represents atelectasis. Correlate clinically for evidence of superimposed pneumonia. Electronically signed by: Andre Raymundo M.D. 09/08/2017 1:13 PM Dictated Date/Time: 09/08/2017 1:11 PM Laboratory Results 09/08/17 12:55 Red Blood Count 3.89, Mean Corpuscular Volume 95.6, Mean Corpuscular Hemoglobin 30.6, Mean Corpuscular Hemoglobin Concent 32.0, Mean Platelet Volume 12.8, Neutrophils (%) (Auto) 77.4, Lymphocytes (%) (Auto) 9.6, Monocytes (%) (Auto) 10.8, Eosinophils (%) (Auto) 1.8, Basophils (%) (Auto) 0.2, Neutrophils # (Auto ) 6.80, Lymphocytes # (Auto) 0.84, Monocytes # (Auto) 0.95, Eosinophils # (Auto ) 0.16, Basophils # (Auto) 0.02 09/08/17 12:55 Test 09/08/17 12:55 White Blood Count 8.79 K/uL (4.8-10.8) Red Blood Count 3.89 M/uL (4.7-6.1) Hemoglobin 11.9 g/dL (14.0-18.0) Hematocrit 37.2 % (42-52) Mean Corpuscular Volume 95.6 fL (80-100) Mean Corpuscular Hemoglobin 30.6 pg (25-34) Mean Corpuscular Hemoglobin Concent 32.0 g/dl (32-36) Platelet Count 198 K/uL (130-400) Mean Platelet Volume 12.8 fL (7.4-10.4) Neutrophils (%) (Auto) 77.4 % Lymphocytes (%) (Auto) 9.6 % Monocytes (%) (Auto) 10.8 % Eosinophils (%) (Auto) 1.8 % Basophils (%) (Auto) 0.2 % Neutrophils # (Auto) 6.80 K/uL (1.4-6.5) Lymphocytes # (Auto) 0.84 K/uL (1.2-3.4) Monocytes # (Auto) 0.95 K/uL (0.11-0.59) Eosinophils # (Auto) 0.16 K/uL (0-0.5) Basophils # (Auto) 0.02 K/uL (0-0.2) RDW Standard Deviation 54.6 fL (36.4-46.3) RDW Coefficient of Variation 15.7 % (11.5-14.5) Immature Granulocyte % (Auto) 0.2 % Immature Granulocyte # (Auto) 0.02 K/uL (0.00-0.02) Prothrombin Time 18.2 SECONDS (9.0-12.0) Prothromb Time International Ratio 1.8 (0.9-1.1) Activated Partial Thromboplast Time 31.5 SECONDS (21.0-31.0) Partial Thromboplastin Ratio 1.2 Anion Gap 6.0 mmol/L (3-11) Est Creatinine Clear Calc Drug Dose 29.0 ml/min Estimated GFR () 38.4 Estimated GFR (Non- 33.1 BUN/Creatinine Ratio 13.7 (10-20) Calcium Level 8.4 mg/dl (8.5-10.1) Total Bilirubin 0.8 mg/dl (0.2-1) Aspartate Amino Transf (AST/SGOT) 31 U/L (15-37) Alanine Aminotransferase (ALT/SGPT) 43 U/L (12-78) Alkaline Phosphatase 122 U/L (45-117) Troponin I 0.028 ng/ml (0-0.045) Pro-B-Type Natriuretic Peptide 9324 pg/ml (0-1800) Total Protein 7.1 gm/dl (6.4-8.2) Albumin 3.3 gm/dl (3.4-5.0) Globulin 3.8 gm/dl (2.5-4.0) Albumin/Globulin Ratio 0.9 (0.9-2) Thyroid Stimulating Hormone (TSH) 7.950 uIu/ml (0.300-4.500) Laboratory results reviewed by me Medications Administered Medications (Trade) Dose Ordered Sig/Avinash Route Start Time Stop Time Status Last Admin Dose Admin Furosemide (Lasix Inj) 40 mg NOW STAT IV 09/08/17 12:53 09/08/17 12:54 DC 09/08/17 14:05 40 MG Nitroglycerin (Nitrostat Tab) 0.4 mg NOW STAT SL 09/08/17 14:41 09/08/17 14:45 DC 09/08/17 15:30 0.4 MG ECG Indication: SOB/dyspnea Rate (beats per minute): 62 Rhythm: other (AV Paced) Findings: LBBB, T-wave inversion (Inferior), other (Wide QRS, right axis deviation, no SSA criteria) Comparison ECG Date: 11/08/16 Change: no significant change Change: Patient's electrocardiogram interpreted by me. ED Course 1248: The patient was evaluated in room C8. A complete history and physical exam was performed. 1440: Discussed the patient's case with Tammie Lainez PA-C. The patient will be evaluated for further treatment and disposition. 1629: Dr. Nicole - Cardiology was made aware of the patient as well. Medical Decision The patient is an 86 year old white male with a past medical history of CHF, CKD , CVA, DM, Dyslipidemia, bladder cancer, HTN, HLD, pacemaker, A-fib, ORIF, AVR, CABG, and TURP who presents to the ED with a cc of worsening shortness of breath beginning a few weeks ago which is worsened with bending over and walking. Differential diagnosis: Etiologies such as infections, reactive airway disease, pneumonia, pneumothorax , COPD, CHF, cardiac ischemia, pulmonary embolism, musculoskeletal, gastrointestinal, as well as others were entertained. Patient was seen and evaluated the bedside. I did receive a phone call from Dr. Gomez with cardiology. Patient does have known history of CABG, Amy, and pacemaker placement. Patient has had some worsening exertional dyspnea and orthopnea. Patient is complaining of some baseline shortness of breath which is new. Per Dr. Gomez the patient's weight between visits has increased 13 pounds. I did agree with the patient was likely volume overloaded. Patient was given 40 of IV Lasix. Patient was also given some sublingual nitro. No BiPAP was initially started. Patient's EKG did show left bundle branch block pattern with T-wave inversions that were essentially unchanged from prior. Patient did have an elevated BNP at greater than 9000. Troponin was not elevated. Patient does have CK D it is essentially at baseline. His chest x- ray did show some pleural effusions. Patient was admitted to the medicine service. I did discuss the patient with the on-call ham sawyer later given my prior talk with the outpatient ham sawyer. He was aware of the patient. Medication Reconcilliation Current Medication List: was personally reviewed by me Blood Pressure Screening Patient's blood pressure: Elevated blood pressure Monitored by the hospitalist. Consults Time Called: 1437 Consulting Physician: Tammie Lainez PA-C Returned Call: 1440 Discussed the patient's case with Tammie Lainez PA-C. The patient will be evaluated for further treatment and disposition. Impression Primary Impression: CHF exacerbation Additional Impressions: S/P AVR CKD (chronic kidney disease) stage 3, GFR 30-59 ml/min Anemia Scribe Attestation The scribe's documentation has been prepared under my direction and personally reviewed by me in its entirety. I confirm that the note above accurately reflects all work, treatment, procedures, and medical decision making performed by me. Departure Information Dispostion Being Evaluated By Hospitalist Referrals Melo Bañuelos III, M.D. (PCP) Problem Qualifiers Primary Impression: CHF exacerbation Congestive heart failure type: systolic Qualified Codes: I50.23 - Acute on chronic systolic (congestive) heart failure Additional Impressions: Anemia Anemia type: unspecified type Qualified Codes: D64.9 - Anemia, unspecified
[2017-09-08 13:30] LABS: ALBUMIN 3.3 gm/dl (3.4-5.0); CALCIUM 8.4 mg/dl (8.5-10.1); CREATININE 1.79 mg/dl (0.60-1.40); POTASSIUM 4.7 mmol/L (3.5-5.1)
[2017-09-08 13:35] LABS: TOTAL PROTEIN 7.1 gm/dl (6.4-8.2)
[2017-09-08] MEDS ORDERED: FERR1TAB13 PO (14:22)
[2017-09-08] MEDS ORDERED: AMLO-110 PO (14:22)
[2017-09-08] MEDS ORDERED: DSWCR TOP (14:22)
[2017-09-08] MEDS ORDERED: CLIN300C2 PO (14:22)
[2017-09-08] MEDS ORDERED: LEVO25TA5 PO (14:22)
[2017-09-08] MEDS ORDERED: METO-478 PO (14:22)
[2017-09-08] MEDS ORDERED: HYDR2.5L TOP (14:22)
[2017-09-08] MEDS ORDERED: NYST100010 TOP (14:22)
[2017-09-08] MEDS ORDERED: NITROGLYCERIN 0.4 MG SL PER TAB CHARGE SL STA (14:41)
[2017-09-08] MEDS ORDERED: ACETAMINOPHEN 325 MG TAB PO PRN (15:30)
[2017-09-08] MEDS ORDERED: ONDANSETRON INJ 2 MG/ML 2 ML VIAL IV PRN (15:30)
[2017-09-08] MEDS ORDERED: NITROGLYCERIN 0.4 MG SL PER TAB CHARGE SL PRN (15:30)
[2017-09-08] MEDS ORDERED: POLYETHYLENE (MIRALAX) 17 GM PACK PO PRN (15:30)
[2017-09-08] MEDS ORDERED: FURO20TA PO (15:32)
--- NOTE | 2017-09-08 16:57 | History and Physical ---
History & Physical Date & Time of Service: Sep 08, 2017 at 15:59 Chief Complaint: Edema/Sob Primary Care Physician: Melo Bañuelos III, M.D. History of Present Illness Source: patient, clinic records, hospital records Pt is 86 y/o M with PMH CHF, CABG, TAVR, a-fib, sick sinus syndrome, heart block , pacemaker, chronic anemia, CKD, inflammatory bowel disease presented to ER from [facility] for LE edema and SOB. Pt follows with [facility]-cardiology. Pt reports a couple of weeks ago had UTI and his Lasix was held. He states was on 40-60mg lasix daily in the past. Couple of days ago lasix restarted at 10mg daily. Amlodipine was added on 08/22/17 for BP. He does not use home oxygen. Reports past 2 weeks with increased LE edema and increased exertional SOB. Past week with SOB with tying his shoes. Pt with 6 pound weight gain from 08/13/17 noted on out pt notes. Denies cough, CP, orthopnea, PND. Denies fever/chills, diaphoresis, N/V/D/C, ANDERSON, dizziness, syncope, vision changes, neck pain, palpitations, choking,abdominal pain, paresthesias, dysuria, hematuria. Hx echo 06/08/16 - EF: 55-60% Past Medical/Surgical History Medical Problems: (1) CKD (chronic kidney disease) stage 3, GFR 30-59 ml/min Status: Chronic (2) CVA (cerebral vascular accident) Status: Resolved (3) Diabetes mellitus type II, controlled Status: Chronic (4) Dyslipidemia Status: Chronic (5) History of bladder cancer Permanent Comment: s/p tumor resection Status: Chronic (6) HTN (hypertension) Status: Chronic (7) Pacemaker Status: Resolved (8) Paroxysmal atrial fibrillation Status: Chronic Surgical Problems: (1) H/O cataract removal with insertion of prosthetic lens Status: Resolved (2) History of arthroplasty of left knee Status: Resolved (3) History of bladder surgery Permanent Comment: bladder tumor removal 1997 Status: Resolved (4) History of inguinal hernia repair Status: Resolved (5) History of open reduction and internal fixation (ORIF) procedure Permanent Comment: REPAIR NONUNION MALUNION TIBIA performed by Familia Sawant MD at [facility] 02/2014 Status: Resolved (6) History of tonsillectomy Status: Resolved (7) S/P AVR Status: Resolved (8) S/P CABG x 4 Status: Resolved (9) S/P rotator cuff repair Status: Resolved (10) S/P TURP (status post transurethral resection of prostate) Status: Resolved Family History FH: cancer Social History Smoking Status: Never Smoker Smokeless Tobacco Use: No Alcohol Use: none Drug Use: none Marital Status: Housing status: lives alone Occupational Status: retired Immunizations History of Influenza Vaccine: N/A History of Tetanus Vaccine?: Yes History of Pneumococcal: Yes History of Hepatitis B Vaccine: No Multi-Drug Resistant Organisms History of MDRO: No Allergies Coded Allergies: Penicillins (Verified Allergy, Mild, ITCHING, 09/08/17) Home Medications Scheduled Amiodarone Hcl (Cordarone), 200 MG PO DAILY Amlodipine (Norvasc), 5 MG PO DAILY Aspirin (Aspirin Ec), 81 MG PO DAILY Atorvastatin (Lipitor), 40 MG PO DAILY Clindamycin Hcl (Cleocin), 600 MG PO UD Desonide 0.05% (Desowen 0.05%), 1 APPLN TOP BID Ferrous Sulfate (Kp Ferrous Sulfate), 1 TAB PO BID Furosemide (Lasix), 0.5 TAB PO DAILY Hydrocortisone (Topical) (Hydrocortisone), 1 APPLN TOP BID Levothyroxine Sodium (Levothyroxine Sodium), 0.5 TAB PO QAM Mesalamine (Lialda), 1.2 GM PO BID Metoprolol Succinate (Toprol Xl), 50 MG PO BID Potassium Chloride Microencaps (Potassium Chloride Er), 20 MEQ PO DAILY Warfarin Sodium (Warfarin Sodium), 0.5 TAB PO QPM Scheduled PRN Nitroglycerin (Nitrostat), 0.4 MG UT UD PRN for Chest Pain Review of Systems Constitutional: No fever, No chills, No sweats Eyes: No eye pain, No redness ENT: No unusual epistaxis, No nasal symptoms, No sore throat, No trouble swallowing Respiratory: No cough, No sputum, No shortness of breath, No dyspnea on exertion, No dyspnea at rest, No hemoptysis, No problem reported Cardiovascular: No chest pain, No orthopnea, No PND, No palpitations Abdomen: No pain, No nausea, No vomiting, No diarrhea Musculoskeletal: No joint pain, No muscle pain, No swelling, No calf pain Genitourinary - Male: + problem reported (decreased urine amount past week), No hematuria, No dysuria, No urinary frequency, No urinary urgency Neurologic: No paralysis, No numbness/tingling, No vertigo Psychiatric: No depression symptoms, No anxiety Endocrine: No excessive thirst Hematologic / Lymphatic: No abnormal bleeding/bruising, No clotting problems, No night sweats Integumentary: No rash Physical Exam Vital Signs Date Time Temp Pulse Resp B/P (MAP) Pulse Ox O2 Delivery O2 Flow Rate FiO2 09/08/17 15:23 65 18 157/78 97 Nasal Cannula 3.0 09/08/17 14:42 63 20 137/109 96 Nasal Cannula 2.0 09/08/17 13:57 63 16 184/83 97 Nasal Cannula 2.0 09/08/17 13:04 36.5 61 16 183/87 90 Room Air 09/08/17 13:04 90 Room Air 09/08/17 12:57 60 09/08/17 12:50 96 Nasal Cannula 2.0 General Appearance: WD/WN, no apparent distress Head: normocephalic, atraumatic Eyes: normal inspection, PERRL, EOMI, sclerae normal ENT: hearing grossly normal, pharynx normal, + pertinent finding (mucous membranes moist) Neck: supple, no adenopathy, trachea midline Respiratory/Chest: chest non-tender, no respiratory distress, no accessory muscle use, + rales (bilateral bases), + pertinent finding (on 2L O2 via NC and able to talk in sentences) Cardiovascular: regular rate, rhythm, + systolic murmur Abdomen/GI: normal bowel sounds, non tender, soft Back: no CVA tenderness Extremities/Musculoskelatal: non-tender, + pertinent finding (+bilateral pretibial edema +3) Neurologic/Psych: alert, normal mood/affect, oriented x 3 Skin: normal color, warm/dry Diagnostics Laboratory Results Results Past 24 Hours Test 09/08/17 12:55 Range/Units White Blood Count 8.79 4.8-10.8 K/uL Red Blood Count 3.89 4.7-6.1 M/uL Hemoglobin 11.9 14.0-18.0 g/dL Hematocrit 37.2 42-52 % Mean Corpuscular Volume 95.6 80-100 fL Mean Corpuscular Hemoglobin 30.6 25-34 pg Mean Corpuscular Hemoglobin Concent 32.0 32-36 g/dl Platelet Count 198 130-400 K/uL Mean Platelet Volume 12.8 7.4-10.4 fL Neutrophils (%) (Auto) 77.4 % Lymphocytes (%) (Auto) 9.6 % Monocytes (%) (Auto) 10.8 % Eosinophils (%) (Auto) 1.8 % Basophils (%) (Auto) 0.2 % Neutrophils # (Auto) 6.80 1.4-6.5 K/uL Lymphocytes # (Auto) 0.84 1.2-3.4 K/uL Monocytes # (Auto) 0.95 0.11-0.59 K/uL Eosinophils # (Auto) 0.16 0-0.5 K/uL Basophils # (Auto) 0.02 0-0.2 K/uL RDW Standard Deviation 54.6 36.4-46.3 fL RDW Coefficient of Variation 15.7 11.5-14.5 % Immature Granulocyte % (Auto) 0.2 % Immature Granulocyte # (Auto) 0.02 0.00-0.02 K/uL Prothrombin Time 18.2 9.0-12.0 SECONDS Prothromb Time International Ratio 1.8 0.9-1.1 Activated Partial Thromboplast Time 31.5 21.0-31.0 SECONDS Partial Thromboplastin Ratio 1.2 Sodium Level 138 136-145 mmol/L Potassium Level 4.7 3.5-5.1 mmol/L Chloride Level 106 98-107 mmol/L Carbon Dioxide Level 26 21-32 mmol/L Anion Gap 6.0 3-11 mmol/L Blood Urea Nitrogen 24 7-18 mg/dl Creatinine 1.79 0.60-1.40 mg/dl Est Creatinine Clear Calc Drug Dose 29.0 ml/min Estimated GFR () 38.4 Estimated GFR (Non- 33.1 BUN/Creatinine Ratio 13.7 10-20 Random Glucose 108 70-99 mg/dl Calcium Level 8.4 8.5-10.1 mg/dl Total Bilirubin 0.8 0.2-1 mg/dl Aspartate Amino Transf (AST/SGOT) 31 15-37 U/L Alanine Aminotransferase (ALT/SGPT) 43 12-78 U/L Alkaline Phosphatase 122 45-117 U/L Troponin I 0.028 0-0.045 ng/ml Pro-B-Type Natriuretic Peptide 9324 0-1800 pg/ml Total Protein 7.1 6.4-8.2 gm/dl Albumin 3.3 3.4-5.0 gm/dl Globulin 3.8 2.5-4.0 gm/dl Albumin/Globulin Ratio 0.9 0.9-2 Diagnostic Radiology CXR: IMPRESSION: 1. Cardiomegaly and cardiac pacemaker. There is evidence of congestive failure and interstitial edema. 2. Small pleural effusions with bibasilar consolidation. This likely represents atelectasis. Correlate clinically for evidence of superimposed pneumonia. EKG EKG: AV paced rhythm Impression Assessment and Plan ACUTE ON CHRONIC DIASTOLIC & SYSTOLIC HF Pt presented with increased LE edema and exertional SOB x 2 weeks. Hx on 40- 60mg lasix daily in past, was taken off several weeks ago. Pt not home O2 dependent. O2 sat: 90% RA in ER up to 96% on 2L NC. CXR: Cardiomegaly and cardiac pacemaker. evidence of congestive failure & interstitial edema. Small pleural effusions with bibasilar consolidation. Pt given 40mg lasix IV in ER. -I&O's, daily weights -Lasix 40mg IV for now, pending cardiology recommendations -echo -cardiology consult -PT/OT eval -monitor electrolytes PAROXYSMAL A-FIB INR: 1.8. Will dose coumadin 5mg tonight. Monitor INR -Continue amlodipine and metoprolol HTN BP: 186/97 in ER. was given nitro SL x 1 with BP: 157/78 -continue to monitor -continue metoprolol, amlodipine CAD s/p CABG No CP recently. Hasn't had to use nitro for >1 year -continue ASA, metoprolol, Lipitor CKD III Cr 1.8. baseline ~1.9-2.0 -continue to monitor renal functions -avoid nephrotoxic agents when possible Hx SICK SINUS SYNDROME, AVB S/P PACER -paced rhythm on EKG DM II diet controlled. HA1C was 6.1 on 08/21/17 HYPOTHYROIDISM TSH added -continue levothyroxine CHRONIC ANEMIA Hgb: 11.9 (baseline ~12) -monitor CBC -continue ferrous sulfate s/p AVR DVT PROPHYLAXIS -coumadin DISPOSITION -admit tele -Full Code as per discussion with pt -Follows with Dr Bañuelos for routine care Pt was seen with Dr Covington. See addendum Agree with above H and P.86m with hx of chf was on Lasix about 60mg daily in the recent past and it was stopped recently and was restyarted at 10mg daily ( Patient doesn't know why it was stopped) went to see his cardiology has he was getting sob and increasing lower extremity edema and he was sent to Er for admission. He also having blood on and off in stools for sometime and there is plan for colonoscopy.. Received iv Lasix in ER. resting comfortably and hemodynamically stable. p/e Ge not in distress Cvs s1 and s2 heard no murmurs RS cta b/l no added sounds Abd soft bs present non tender no distension Investigative Assistant non focal Ext b/l lower extremity edema a/p Acute on chronic systolic and diastolic chf recently Lasix dose was decreased stating on iv Lasix monitor labs cardio consult for further recommendations Hx of PAF Sick sinus syndrome, heart block s/p pacemaker recent pacemaker interrogation showed no afib cardiology out patient notes recommends to re interrogate pacemaker and if regular rhythm can stop Coumadin as patient having GI bleeds on and off Gi bleed there is a plan for colonoscopy but cardiology wants to hold it for now. Level of Care Telemetry Resuscitation Status FULL RESUSCITATION VTE Prophylaxis VTE Risk Assessment Done? Y/N: Yes Risk Level: Moderate Given or contraindicated: Warfarin (Coumadin) Additional Copies To Melo Bañuelos III, M.D.
[2017-09-08 17:09] VITALS: BP 179/75; PULSE 60; TEMP 36.5; O2SAT 96; Ht 167.6 cm; Wt 72.8 kg
[2017-09-08] MEDS ORDERED: WARFARIN SOD 5 MG TAB PO SCH ×2 (18:00→21:00)
[2017-09-08 19:42] VITALS: BP 151/78; PULSE 59; TEMP 36.5; O2SAT 97
[2017-09-08 20:21] VITALS: PULSE 63
[2017-09-08] MEDS: METOPROLOL SUCC 50MG EXT REL TAB PO SCH (20:22)
[2017-09-08] MEDS: FERROUS SULFATE 325 MG TAB PO SCH (20:23)
[2017-09-08] MEDS: FUROSEMIDE INJ 80 MG in SYRINGE 0 ML IV SCH (20:23)
[2017-09-08 23:46] VITALS: BP 139/51; PULSE 59; TEMP 36.5; O2SAT 96
[2017-09-09] VITALS (7 sets, daily range): BP systolic 128–151; BP diastolic 52–72; PULSE 58–62; TEMP 36.5–36.7; O2SAT 94–97
[2017-09-09 07:07] LABS: HEMATOCRIT 35.5 % (42-52); HEMOGLOBIN 11.5 g/dL (14.0-18.0); MEAN CELL VOLUME 93.7 fL (80-100); MEAN CORPUSCULAR HEMOGLOBIN 30.3 pg (25-34); MEAN CORPUSCULAR HGB CONC 32.4 g/dl (32-36); MEAN PLATELET VOLUME 12.4 fL (7.4-10.4); PLATELET COUNT 161 K/uL (130-400); RED CELL DISTRIBUTION WIDTH CV 15.2 % (11.5-14.5); RED CELL DISTRIBUTION WIDTH SD 51.5 fL (36.4-46.3); WHITE BLOOD COUNT 6.36 K/uL (4.8-10.8)
[2017-09-09] MEDS: LEVOTHYROXINE 25 MCG TAB PO SCH (07:07)
[2017-09-09 07:15] LABS: INR 1.9 (0.9-1.1)
[2017-09-09 07:43] LABS: CALCIUM 8.2 mg/dl (8.5-10.1); CREATININE 1.85 mg/dl (0.60-1.40); POTASSIUM 3.4 mmol/L (3.5-5.1)
[2017-09-09] MEDS: METOPROLOL SUCC 50MG EXT REL TAB PO SCH ×2 (08:10→21:23)
[2017-09-09] MEDS: ATORVASTATIN 40 MG TAB PO SCH (08:10)
[2017-09-09] MEDS: AMIODARONE 200 MG TAB PO SCH (08:11)
[2017-09-09] MEDS: ASPIRIN 81 MG ECTAB PO SCH (08:11)
[2017-09-09] MEDS: AMLODIPINE BESYLATE 5 MG TAB PO SCH (08:11)
[2017-09-09] MEDS: FERROUS SULFATE 325 MG TAB PO SCH ×2 (08:11→21:22)
[2017-09-09] MEDS ORDERED: POTASSIUM CHLORIDE 20 MEQ TABCR PO STA (08:49)
[2017-09-09] MEDS ORDERED: POTASSIUM CHLORIDE 20 MEQ TABCR PO SCH (09:00)
[2017-09-09] MEDS ORDERED: FUROSEMIDE INJ 40 MG in SYRINGE 0 ML IV SCH (09:00)
--- NOTE | 2017-09-09 10:42 | Progress Note ---
Medicine Progress Note Date & Time of Visit: Sep 09, 2017 at 10:26. Subjective 86 yo M presented with weight gain, increased JAMES and LE swelling consistent with acute heart failure exacerbation. -pt reports a complete resolution of symptoms -denies chest pain or SOB -denies swelling in legs. -some pain in legs around scar tissue. -denies palpitations. -tolerating PO Objective Last 8 Hrs Date Time Temp Pulse Resp B/P (MAP) Pulse Ox O2 Delivery O2 Flow Rate FiO2 09/09/17 08:00 Nasal Cannula 09/09/17 04:00 Nasal Cannula 09/09/17 03:23 36.5 62 20 128/52 (77) 96 Nasal Cannula 3.0 Physical Exam: GEN: WNWD, in no acute distress, alert and appropriate HEENT: NC/AT, PERRL, normal sclerae, no LAD, MMM CARDIO: reg rate, S1/2 heard without m/g/r, no JVD LUNGS: coarse rhonchi at bases bilaterally ABD: soft, non-tender, non-distended, no rebound or guarding, +BS EXTREMITY: RP and DP palpable 2+ bilat, no LE swelling or edema, extremities are warm and well-perfused, multiple vertical scars on both legs. NEURO: CN 2-12 grossly intact MUSC: 5/5 strength throughout, no gross focal deficits SKIN: warm and dry Laboratory Results: 09/09/17 06:50 09/09/17 06:50 Test 09/08/17 12:55 09/08/17 16:10 09/09/17 06:50 Immature Granulocyte % (Auto) 0.2 % White Blood Count 8.79 K/uL (4.8-10.8) Red Blood Count 3.89 M/uL (4.7-6.1) 3.79 M/uL (4.7-6.1) Hemoglobin 11.9 g/dL (14.0-18.0) Hematocrit 37.2 % (42-52) Mean Corpuscular Volume 95.6 fL (80-100) 93.7 fL (80-100) Mean Corpuscular Hemoglobin 30.6 pg (25-34) 30.3 pg (25-34) Mean Corpuscular Hemoglobin Concent 32.0 g/dl (32-36) 32.4 g/dl (32-36) Platelet Count 198 K/uL (130-400) Mean Platelet Volume 12.8 fL (7.4-10.4) 12.4 fL (7.4-10.4) Neutrophils (%) (Auto) 77.4 % Lymphocytes (%) (Auto) 9.6 % Monocytes (%) (Auto) 10.8 % Eosinophils (%) (Auto) 1.8 % Basophils (%) (Auto) 0.2 % Neutrophils # (Auto) 6.80 K/uL (1.4-6.5) Lymphocytes # (Auto) 0.84 K/uL (1.2-3.4) Monocytes # (Auto) 0.95 K/uL (0.11-0.59) Eosinophils # (Auto) 0.16 K/uL (0-0.5) Basophils # (Auto) 0.02 K/uL (0-0.2) Immature Granulocyte # (Auto) 0.02 K/uL (0.00-0.02) Activated Partial Thromboplast Time 31.5 SECONDS (21.0-31.0) Partial Thromboplastin Ratio 1.2 Total Bilirubin 0.8 mg/dl (0.2-1) Aspartate Amino Transf (AST/SGOT) 31 U/L (15-37) Alanine Aminotransferase (ALT/SGPT) 43 U/L (12-78) Alkaline Phosphatase 122 U/L (45-117) Troponin I 0.028 ng/ml (0-0.045) Pro-B-Type Natriuretic Peptide 9324 pg/ml (0-1800) Total Protein 7.1 gm/dl (6.4-8.2) Albumin 3.3 gm/dl (3.4-5.0) Globulin 3.8 gm/dl (2.5-4.0) Albumin/Globulin Ratio 0.9 (0.9-2) Thyroid Stimulating Hormone (TSH) 7.950 uIu/ml (0.300-4.500) Urine Color YELLOW Urine Appearance CLEAR (CLEAR) Urine pH 6.5 (4.5-7.5) Urine Specific Engelhard 1.010 (1.000-1.030) Urine Protein NEG (NEG) Urine Glucose (UA) NEG (NEG) Urine Ketones NEG (NEG) Urine Occult Blood NEG (NEG) Urine Nitrite NEG (NEG) Urine Bilirubin NEG (NEG) Urine Urobilinogen NEG (NEG) Urine Leukocyte Esterase NEG (NEG) RDW Standard Deviation 51.5 fL (36.4-46.3) RDW Coefficient of Variation 15.2 % (11.5-14.5) Prothrombin Time 19.3 SECONDS (9.0-12.0) Prothromb Time International Ratio 1.9 (0.9-1.1) Anion Gap 5.0 mmol/L (3-11) Est Creatinine Clear Calc Drug Dose 24.9 ml/min Estimated GFR () 36.9 Estimated GFR (Non- 31.8 BUN/Creatinine Ratio 12.7 (10-20) Calcium Level 8.2 mg/dl (8.5-10.1) Last 24 Hours Test 09/08/17 12:55 09/08/17 16:10 09/09/17 06:50 White Blood Count 8.79 K/uL 6.36 K/uL Red Blood Count 3.89 M/uL 3.79 M/uL Hemoglobin 11.9 g/dL 11.5 g/dL Hematocrit 37.2 % 35.5 % Mean Corpuscular Volume 95.6 fL 93.7 fL Mean Corpuscular Hemoglobin 30.6 pg 30.3 pg Mean Corpuscular Hemoglobin Concent 32.0 g/dl 32.4 g/dl Platelet Count 198 K/uL 161 K/uL Mean Platelet Volume 12.8 fL 12.4 fL Neutrophils (%) (Auto) 77.4 % Lymphocytes (%) (Auto) 9.6 % Monocytes (%) (Auto) 10.8 % Eosinophils (%) (Auto) 1.8 % Basophils (%) (Auto) 0.2 % Neutrophils # (Auto) 6.80 K/uL Lymphocytes # (Auto) 0.84 K/uL Monocytes # (Auto) 0.95 K/uL Eosinophils # (Auto) 0.16 K/uL Basophils # (Auto) 0.02 K/uL RDW Standard Deviation 54.6 fL 51.5 fL RDW Coefficient of Variation 15.7 % 15.2 % Immature Granulocyte % (Auto) 0.2 % Immature Granulocyte # (Auto) 0.02 K/uL Prothrombin Time 18.2 SECONDS 19.3 SECONDS Prothromb Time International Ratio 1.8 1.9 Activated Partial Thromboplast Time 31.5 SECONDS Partial Thromboplastin Ratio 1.2 Sodium Level 138 mmol/L 137 mmol/L Potassium Level 4.7 mmol/L 3.4 mmol/L Chloride Level 106 mmol/L 99 mmol/L Carbon Dioxide Level 26 mmol/L 33 mmol/L Anion Gap 6.0 mmol/L 5.0 mmol/L Blood Urea Nitrogen 24 mg/dl 24 mg/dl Creatinine 1.79 mg/dl 1.85 mg/dl Est Creatinine Clear Calc Drug Dose 29.0 ml/min 24.9 ml/min Estimated GFR () 38.4 36.9 Estimated GFR (Non- 33.1 31.8 BUN/Creatinine Ratio 13.7 12.7 Random Glucose 108 mg/dl 88 mg/dl Calcium Level 8.4 mg/dl 8.2 mg/dl Total Bilirubin 0.8 mg/dl Aspartate Amino Transf (AST/SGOT) 31 U/L Alanine Aminotransferase (ALT/SGPT) 43 U/L Alkaline Phosphatase 122 U/L Troponin I 0.028 ng/ml Pro-B-Type Natriuretic Peptide 9324 pg/ml Total Protein 7.1 gm/dl Albumin 3.3 gm/dl Globulin 3.8 gm/dl Albumin/Globulin Ratio 0.9 Thyroid Stimulating Hormone (TSH) 7.950 uIu/ml Urine Color YELLOW Urine Appearance CLEAR Urine pH 6.5 Urine Specific Engelhard 1.010 Urine Protein NEG Urine Glucose (UA) NEG Urine Ketones NEG Urine Occult Blood NEG Urine Nitrite NEG Urine Bilirubin NEG Urine Urobilinogen NEG Urine Leukocyte Esterase NEG Assessment & Plan 86 yo M presented with weight gain, increased JAMES and LE swelling consistent with acute heart failure exacerbation. 1. Acute on chronic heart failure exacerbation-likely related to diuretic noncompliance based on outpatient provider recommendations. He has diuresed 6 L overnight and is feeling well and back to normal. LE edema has improved/ resolved. He is still requiring oxygen which he is not on at baseline and does have some baseline crackles on lung exam. Initially held diuretics for this morning, however, Cardiology is ok with continuing this for now. Will restart and cont to monitor. Echo pending. 2. Paroxysmal atrial fibrillation-currently in sinus rhythm. On warfarin, ASA 81, amio and Toprol XL 50 BID. PM interrogation pending. Cards to take him off warfarin if interrogation proves negative for afib events. Will follow. INR 1.9 this am. Cont current warfarin dose until adjusted per Cards. 3. HTN-on amlodipine and Metoprolol of which amlodipine was recently started within 2-3 weeks. This may have also contributed to some LE swelling. Will need to be followed as outpatient. Inpatient BP is controlled. 4. CAD s/p CABG-stable, cont medical management including ASA, Toprol XL and Lipitor. 5. CKD Stage III-renal function at baseline. 6. DMII-Diet controlled. A1C recently was 6.1. 7. IBD-pt denies that he has CD or UC and states he doesn't know what drugs he is taking and why because a nurse helps him with this. We discussed that his mesalamine is NF and will need to be brought in. His response was that he was leaving soon and felt he could be without it for a couple of days. 8. Hypothyroidism-TSH slightly elevated, however, he reports initiating therapy just two months ago. Would adjust Synthroid as outpatient. Cont current dose. DVT PROPHYLAXIS: coumadin Full Code Dispo-likely to home tomorrow. Of note, pt lives alone. Would ensure PT/OT eval prior to leaving. -Awaiting their eval. Marnie Mederos DO [facility] Hospitalist Consultants: Krzysztof Current Inpatient Medications: Current Inpatient Medications Medications (Trade) Dose Ordered Sig/Avinash Route Start Time Stop Time Status Last Admin Dose Admin Acetaminophen (Tylenol Tab) 650 mg Q4H PRN PO 09/08/17 15:30 10/08/17 15:29 Nitroglycerin (Nitrostat Tab) 0.4 mg UD PRN SL 09/08/17 15:30 10/08/17 15:29 Polyethylene (Miralax Powder Packet) 17 gm DAILY PRN PO 09/08/17 15:30 10/08/17 15:29 Amiodarone HCl (Cordarone Tab) 200 mg DAILY PO 09/09/17 09:00 10/09/17 08:59 09/09/17 08:11 200 MG Aspirin (Ecotrin Tab) 81 mg DAILY PO 09/09/17 09:00 10/09/17 08:59 09/09/17 08:11 81 MG Atorvastatin Calcium (Lipitor Tab) 40 mg DAILY PO 09/09/17 09:00 10/09/17 08:59 09/09/17 08:10 40 MG Levothyroxine Sodium (Synthroid Tab) 12.5 mcg DAILYBB PO 09/09/17 06:00 10/09/17 06:59 09/09/17 07:07 12.5 MCG Metoprolol Succinate (Toprol Xl Tab) 50 mg BID PO 09/08/17 21:00 10/08/17 20:59 09/09/17 08:10 50 MG Ferrous Sulfate (Feosol Tab) 325 mg BID PO 09/08/17 21:00 10/08/17 20:59 09/09/17 08:11 325 MG Miscellaneous Information (Order Awaiting Action) 1 ea QS N/A 09/09/17 00:00 10/09/17 00:00 Furosemide 80 mg/ Syringe 8 ml @ 4 mls/min BID IV 09/08/17 21:00 10/08/17 20:59 Future Hold 09/08/17 20:23 4 MLS/MIN Amlodipine Besylate (Norvasc Tab) 5 mg DAILY PO 09/09/17 09:00 10/09/17 08:59 09/09/17 08:11 5 MG Potassium Chloride (Klor-Con Tab) 40 meq BID17 PO 09/09/17 17:00 10/09/17 08:59
--- NOTE | 2017-09-09 13:07 | ECHOCARDIOGRAM REPORT ---
*NOTICE TO RECEIVING LIBERTARIAN AGENCY This information is strictly Confidential and protected under [place] law. [place] law prohibits you from making any further disclosure of this information unless further disclosure is expressly permitted by the written consent of the person to whom it pertains or is authorized by law. A general authorization for the release of medical or other information is not sufficient for this purpose. Hospital accepts no responsibility if the information is made available to any other person, INCLUDING THE PATIENT. Interpretation Summary * Name: KENIA DOBSON Study Date: 09/09/2017 07:28 AM BP: 128/52 mmHg * Patient Location: C.2T\S\S239\S\2 HR: 62 * : 1930 (M/d/yyyy) Gender: Male Height: 66 in * Age: 86 yrs Ethnicity: CA Weight: 185 lb * Ordering Physician: Tammie Lainze * Referring Physician: Self, Referred * Performed By: Oksana Page RDCS * * Reason For Study: CHF * BSA: 1.9 m2 * -- Conclusions -- * Normal LV chamber size with mild concentric LVH. * Normal LV systolic function, with abnormal septal wall motion consistent with RV pacing, otherwise, normal wall motion, EF 50-55%. * Diastolic dysfunction is present given left atrial enlargement. 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 * Moderate MAC with mild mitral regurgitation. * Mild tricuspid regurgitation. * Severe left atrial enlargement. * Compared to previous study of 03/03, LV systolic function has improved, otherwise, unchanged. Procedure Details * A contrast injection of Definity was performed to improve assessment of LV function. * Contrast was injected into an intravenous site in the left arm. * One vial of Definity ultrasound contrast was diluted in normal saline to a total volume of 10 ml. A total of '1' ml of solution was administered during imaging. * Lot # [id number] of Definity utilized for procedure. * Expiration date SEP 05. * The attending nurse who injected the contrast agent was MOLLY FARAH. Left Ventricle * The left ventricle is normal in size. * There is mild concentric left ventricular hypertrophy. * Left ventricular systolic function is normal. * Ejection Fraction = 50-55%. * Apical wall motion abnormality may reflect pacemaker activation. Right Ventricle * The right ventricular cavity size is normal (basal dimension <4.2 cm in right ventricular apical 4-chamber view). * There is a pacemaker lead in the right ventricle. * The right ventricular systolic function is normal as assessed by tricuspid annular plane systolic excursion (TAPSE) (normal >1.5 cm). Atria * The left atrium is severely dilated. * Right atrial size is normal. * No ASD detected; PFO is not assessed. Mitral Valve * There is moderate mitral annular calcification. * There is no mitral valve stenosis. * There is mild mitral regurgitation. Tricuspid Valve * The tricuspid valve anatomy is normal. * There is no tricuspid stenosis. * There is mild tricuspid regurgitation. Aortic Valve * There is a bioprosthetic aortic valve. * The gradient is normal for this prosthetic aortic valve. * Doppler suggests a melvin-prosthetic leak of the prosthetic aortic valve. Pulmonic Valve * The pulmonary valve is not well seen, but the Doppler examination is normal without significant regurgitation or stenosis. Great Vessels * The aortic root is not well visualized. Pericardium/Pleural * There is no pericardial effusion. MMode 2D Measurements and Calculations IVSd 1.5 cm IVSs 1.7 cm LVIDd 3.8 cm LVIDs 2.9 cm LVPWd 1.5 cm LVPWs 2.0 cm IVS/LVPW 0.99 FS 24.1 % EDV(Teich) 61.6 ml ESV(Teich) 31.6 ml EF(Teich) 48.7 % EDV(cubed) 54.5 ml ESV(cubed) 23.9 ml EF(cubed) 56.2 % % IVS thick 12.8 % % LVPW thick 34.6 % LV mass(C)d 217.5 grams LV mass(C)dI 112.4 grams/m\S\2 LV mass(C)s 220.8 grams LV mass(C)sI 114.1 grams/m\S\2 SV(Teich) 30.0 ml SI(Teich) 15.5 ml/m\S\2 SV(cubed) 30.6 ml SI(cubed) 15.8 ml/m\S\2 LA dimension 3.8 cm LVAd ap4 46.7 cm\S\2 LVLd ap4 9.5 cm EDV(MOD-sp4) 183.3 ml EDV(sp4-el) 195.8 ml LVAs ap4 30.0 cm\S\2 LVLs ap4 8.0 cm ESV(MOD-sp4) 89.8 ml ESV(sp4-el) 94.9 ml EF(MOD-sp4) 51.0 % EF(sp4-el) 51.5 % LVAd ap2 34.1 cm\S\2 LVLd ap2 8.3 cm EDV(MOD-sp2) 112.4 ml EDV(sp2-el) 118.3 ml LVAs ap2 22.6 cm\S\2 LVLs ap2 7.4 cm ESV(MOD-sp2) 58.1 ml ESV(sp2-el) 58.3 ml EF(MOD-sp2) 48.3 % EF(sp2-el) 50.7 % LVLd %diff -13.75 % EDV(MOD-bp) 151.9 ml LVLs %diff -8.43 % ESV(MOD-bp) 75.0 ml EF(MOD-bp) 50.6 % SV(MOD-sp4) 93.5 ml SI(MOD-sp4) 48.3 ml/m\S\2 SV(MOD-sp2) 54.3 ml SI(MOD-sp2) 28.1 ml/m\S\2 SV(MOD-bp) 76.9 ml SI(MOD-bp) 39.7 ml/m\S\2 SV(sp4-el) 100.9 ml SI(sp4-el) 52.1 ml/m\S\2 SV(sp2-el) 60.0 ml SI(sp2-el) 31.0 ml/m\S\2 Doppler Measurements and Calculations MV E max venus 111.8 cm/sec MV dec time 0.31 sec Ao V2 max 200.1 cm/sec Ao max PG 16.0 mmHg Ao max PG (full) 12.5 mmHg Ao V2 mean 134.2 cm/sec Ao mean PG 8.3 mmHg Ao mean PG (full) 6.5 mmHg Ao V2 VTI 42.4 cm AI max venus 391.7 cm/sec AI max PG 61.4 mmHg AI dec slope 214.9 cm/sec\S\2 AI P1/2t 533.9 msec LV V1 max PG 3.5 mmHg LV V1 mean PG 1.8 mmHg LV V1 max 93.8 cm/sec LV V1 mean 61.9 cm/sec LV V1 VTI 22.1 cm TR max venus 307.7 cm/sec
--- NOTE | 2017-09-09 14:46 | CARDIOLOGY CONSULTATION ---
DATE OF CONSULTATION: 09/09/2017 CONSULTATION REQUESTED BY: Dr. Covington. REASON FOR CONSULTATION: Acute decompensated heart failure. HISTORY OF PRESENT ILLNESS: Mr. Bills is a very pleasant yet medically complex 86-year-old gentleman who normally follows with Dr. Gomez of our cardiology practice. Mr. Bills actually presented to [facility] cardiology clinic on 09/08/2017 without a scheduled appointment. He was asking if his blood pressure could be checked by a nurse citing the fact he was not feeling well. He recently had his diuretics changed after colonoscopy from 40 to 10 mg daily. Ever since he started taking the lower dose his lower extremities have begun to become edematous and it slowly progressed to the point where now he is unable to put on his shoes and he becomes severely dyspneic trying to bend over and tie his shoes. He also has been noticing shortness of breath with even minimal activity and overall just feels tired and run down. Luckily though he denies any chest pain, palpitations, lightheadedness, dizziness, or syncope. He was seen by Dr. Gomez and found to be significantly volume overloaded and was sent in to the ER for diuresis. Also of note, the patient has a chronic GI bleed and he is on Coumadin for history of paroxysmal atrial fibrillation. PAST SURGICAL HISTORY: 1. 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 2. Coronary artery bypass grafting surgery x3 in 1996 with ACE to the LAD, vein graft to diagonal, vein graft to the obtuse marginal, vein graft to the RCA. 3. Cardiac catheterization November 2015 revealing patent grafts and severe diffuse mentasta vessel disease. 4. [facility] permanent pacemaker placement 01/2016 for symptomatic heart block status post TAVR. 5. Bladder tumor excision. 6. Total knee replacement. 7. Shoulder surgery. MEDICAL ILLNESSES: 1. Severe aortic stenosis, status post TAVR. 2. Coronary artery disease status post CABG. 3. History of paroxysmal atrial fibrillation/flutter most recent device check in July 2017 showing normal sinus rhythm. 4. 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 5. Chronic gastrointestinal bleed. 6. History of CVA. 7. Hypertension. 8. Dyslipidemia. 9. Chronic anemia. 10. Diabetes. FAMILY HISTORY: Noncontributory. SOCIAL HISTORY: The patient has a very remote tobacco use history, quit in 1979. Denies any alcohol or recreational drug use. REVIEW OF SYSTEMS: As per HPI, all other review of systems reviewed and negative at this time. ALLERGIES: PENICILLIN. MEDICATIONS AN OUTPATIENT: 1. Lasix 10 mg daily. 2. Amlodipine 5 mg daily. 3. Toprol-XL 50 mg b.i.d. 4. Amiodarone 200 mg daily. 5. Potassium chloride 20 mEq daily. 6. Atorvastatin 40 mg daily. 7. Coumadin as directed by the Coumadin clinic. 8. Aspirin 81 mg daily. 9. Iron b.i.d. 10. Levoxyl daily. 11. Lialda b.i.d. PHYSICAL EXAMINATION: VITAL SIGNS: Temperature 36.5, pulse 62, respiratory rate 12, blood pressure 128/52. GENERAL: Awake, alert, oriented x3 in no acute distress. HEENT: Normocephalic, atraumatic. Pupils equal, round, and reactive to light and accommodation. Extraocular muscles intact. Anicteric sclerae. Moist mucous membranes. NECK: No JVD, no bruit. CARDIOVASCULAR: Regular. Positive S4. Normal S1 and S2. Soft 2/6 mid to late systolic ejection murmur greatest at the right sternal border second intercostal space with radiation to bilateral carotids. No rubs. PULMONARY: Bibasilar crackles are present. No rhonchi or wheezing. ABDOMEN: Bowel sounds x4. Distended, no rebound, guarding, tenderness. No organomegaly. EXTREMITIES: Profound 2+ pitting edema up to the mid thigh. SKIN: Warm and dry. TEST RESULTS: Chest x-ray in the ER was read as cardiomegaly with cardiac pacemaker, evidence of congestive heart failure and interstitial edema. LABORATORY STUDIES OF SIGNIFICANCE: Sodium 137, potassium 3.4, BUN 24, creatinine 1.85. IMPRESSION: 1. Acute decompensated LV systolic heart failure. 2. History of aortic stenosis, status post AVR. 3. Coronary artery disease status post CABG, stable. 4. Chronic renal insufficiency. 5. Chronic gastrointestinal bleed. 6. History of paroxysmal atrial fibrillation on chronic amiodarone and Coumadin. RECOMMENDATIONS: It was my pleasure to see Mr. Bills in consultation. I did initially increase his diuretics to Lasix 80 mg b.i.d. given his baseline renal impairment and the patient has diuresed 7 liters overnight and is doing very well. Will continue with diuresis at this point. Will also supplement his potassium. Otherwise, there is also concern of his chronic GI bleed and at this point the plan would be to interrogate his permanent pacemaker and should there not be any signs of any significant atrial arrhythmias to discontinue the Coumadin and maintain him on amiodarone as alone with the hopes of resolving his GI bleed. Otherwise, will follow his volume status clinically.
--- NOTE | 2017-09-09 15:21 | Progress Note ---
Progress Note Date of Service Sep 09, 2017. Progress Note Device interrogated: 0% afib will d/c coumadin patient happy to hear this.
[2017-09-09] MEDS: [UNRECOGNIZED DRUG - OTHER] SCH ×3 (16:00→23:32)
[2017-09-09] MEDS ORDERED: WARFARIN SOD 2.5 MG TAB PO SCH (16:00)
[2017-09-09] MEDS: POTASSIUM CHLORIDE 20 MEQ TABCR PO SCH (17:08)
[2017-09-09] MEDS: FUROSEMIDE INJ 80 MG in SYRINGE 0 ML IV SCH (21:22)
[2017-09-10] VITALS (9 sets, daily range): BP systolic 110–156; BP diastolic 47–71; PULSE 58–61; TEMP 36.4–36.7; O2SAT 91–97
[2017-09-10] MEDS: LEVOTHYROXINE 25 MCG TAB PO SCH (07:11)
[2017-09-10] MEDS: [UNRECOGNIZED DRUG - OTHER] SCH ×2 (08:00→16:00)
[2017-09-10 08:15] LABS: CALCIUM 8.4 mg/dl (8.5-10.1); CREATININE 2.02 mg/dl (0.60-1.40); POTASSIUM 4.1 mmol/L (3.5-5.1)
[2017-09-10] MEDS: FERROUS SULFATE 325 MG TAB PO SCH ×2 (08:40→21:04)
[2017-09-10] MEDS: ATORVASTATIN 40 MG TAB PO SCH (08:40)
[2017-09-10] MEDS: AMLODIPINE BESYLATE 5 MG TAB PO SCH (08:40)
[2017-09-10] MEDS: METOPROLOL SUCC 50MG EXT REL TAB PO SCH ×2 (08:40→21:04)
[2017-09-10] MEDS: ASPIRIN 81 MG ECTAB PO SCH (08:40)
[2017-09-10] MEDS: AMIODARONE 200 MG TAB PO SCH (08:40)
[2017-09-10] MEDS: POTASSIUM CHLORIDE 20 MEQ TABCR PO SCH ×2 (08:41→17:18)
[2017-09-10] MEDS: FUROSEMIDE INJ 80 MG in SYRINGE 0 ML IV SCH (08:41)
--- NOTE | 2017-09-10 10:17 | Cardiology Follow-Up ---
Subjective Subjective Date of Service: Sep 10, 2017. Pt evaluation today including: conversation w/ patient, physical exam, chart review, lab review, review of studies, review of inpatient medication list Additional Details: Pt seen and examined, states that he feels great. Breathing is back to normal and legs are just about back to normal size. Nicholas removed for some discomfort but no significant hematuria. Denies cp, palpitations, lightheadedness or dizziness. Tele reviewed: sinus rhythm without arrhythmia or significant ectopy. Problem List Medical Problems: (1) Cardiac arrest Status: Acute (2) Dyspnea Status: Acute (3) Elevated troponin Status: Acute (4) Elevated troponin Status: Acute (5) Encounter for removal of sutures Status: Acute (6) Facial laceration Status: Acute (7) Hypoxia Status: Acute (8) Lower extremity edema Status: Acute (9) Pneumonia Status: Acute (10) Precordial chest pain Status: Acute (11) Pulmonary edema Status: Acute (12) Respiratory arrest Status: Acute (13) Shortness of breath Status: Acute (14) SIRS (systemic inflammatory response syndrome) Status: Acute (15) Tachycardia Status: Acute (16) Tick bite Status: Acute Review of Systems Respiratory: + cough, + sputum, + shortness of breath, No see HPI, No wheezing , No dyspnea on exertion, No dyspnea at rest, No hemoptysis, No problem reported Cardiac: + edema, No see HPI, No chest pain, No orthopnea, No PND, No claudication, No palpitations, No problem reported Musculoskeletal: + joint pain Male : + hematuria Objective Vital Signs Last Vital Signs Documentation Date Time Temp Pulse Resp B/P (MAP) Pulse Ox O2 Delivery O2 Flow Rate FiO2 09/10/17 08:00 Nasal Cannula 09/10/17 07:14 36.7 58 22 156/64 (94 96 3.0 Physical Exam: General Appearance: WD/WN, no apparent distress Eyes: bilateral eyes normal inspection, bilateral eyes PERRL, bilateral eyes EOMI ENT: normal ENT inspection, hearing grossly normal, pharynx normal Neck: supple, no adenopathy, thyroid normal, no JVD, no carotid bruits, trachea midline Respiratory/Chest: chest non-tender, lungs clear, normal breath sounds, no respiratory distress, no accessory muscle use Cardiovascular: regular rate, rhythm, no edema, no JVD, + systolic murmur (3/6 mid to late jovanni, rsb, 2nd ics with radiation to carotids), + gallop/S4 Abdomen: normal bowel sounds, non tender, soft, no organomegaly, no pulsatile mass Extremities: normal inspection, no calf tenderness, + swelling (trace LE edema) Neurologic/Psychiatric: database marketing analyst II-XII nml as tested, no motor/sensory deficits, alert, normal mood/affect, oriented x 3 Skin: normal color, warm/dry, no rash Lymphatic: no adenopathy Assessment and Plan 1. acute decompensated diastolic heart failure has had a very significant diuresis, approx 10L clinically feeling well given profound diuresis would like to watch him on tele one more night and follow renal function closely will d/c IV diuretics now and give him po dose of lasix this PM will likely d/c in AM with lasix 60mg po daily with an additional dose prn will also arrange for CHF clinic follow up as outpatient
[2017-09-10] MEDS: FUROSEMIDE 40 MG TAB PO SCH (17:19)
--- NOTE | 2017-09-10 21:30 | Progress Note ---
Medicine Progress Note Date & Time of Visit: Sep 10, 2017 at 17:25. Subjective doing well asymptomatic denies CP or SOB ambulating tolerating PO Objective Last 8 Hrs Date Time Temp Pulse Resp B/P (MAP) Pulse Ox O2 Delivery O2 Flow Rate FiO2 09/10/17 15:06 36.4 60 24 128/55 (79) 96 Nasal Cannula 3.0 09/10/17 14:50 61 96 09/10/17 12:00 Nasal Cannula 09/10/17 11:05 36.6 59 22 115/61 (79) 95 Nasal Cannula 3.0 Physical Exam: GEN: WNWD, in no acute distress, alert and appropriate HEENT: NC/AT, PERRL, normal sclerae, no LAD, MMM CARDIO: reg rate, S1/2 heard without m/g/r, no JVD LUNGS: CTAB ABD: soft, non-tender, non-distended, no rebound or guarding, +BS EXTREMITY: RP and DP palpable 2+ bilat, no LE swelling or edema, extremities are warm and well-perfused, multiple vertical scars on both legs. NEURO: CN 2-12 grossly intact MUSC: 5/5 strength throughout, no gross focal deficits SKIN: warm and dry Laboratory Results: 09/09/17 06:50 09/10/17 07:27 Test 09/08/17 12:55 09/08/17 16:10 09/09/17 06:50 09/10/17 07:27 Immature Granulocyte % (Auto) 0.2 % White Blood Count 8.79 K/uL (4.8-10.8) Red Blood Count 3.89 M/uL (4.7-6.1) 3.79 M/uL (4.7-6.1) Hemoglobin 11.9 g/dL (14.0-18.0) Hematocrit 37.2 % (42-52) Mean Corpuscular Volume 95.6 fL (80-100) 93.7 fL (80-100) Mean Corpuscular Hemoglobin 30.6 pg (25-34) 30.3 pg (25-34) Mean Corpuscular Hemoglobin Concent 32.0 g/dl (32-36) 32.4 g/dl (32-36) Platelet Count 198 K/uL (130-400) Mean Platelet Volume 12.8 fL (7.4-10.4) 12.4 fL (7.4-10.4) Neutrophils (%) (Auto) 77.4 % Lymphocytes (%) (Auto) 9.6 % Monocytes (%) (Auto) 10.8 % Eosinophils (%) (Auto) 1.8 % Basophils (%) (Auto) 0.2 % Neutrophils # (Auto) 6.80 K/uL (1.4-6.5) Lymphocytes # (Auto) 0.84 K/uL (1.2-3.4) Monocytes # (Auto) 0.95 K/uL (0.11-0.59) Eosinophils # (Auto) 0.16 K/uL (0-0.5) Basophils # (Auto) 0.02 K/uL (0-0.2) Immature Granulocyte # (Auto) 0.02 K/uL (0.00-0.02) Activated Partial Thromboplast Time 31.5 SECONDS (21.0-31.0) Partial Thromboplastin Ratio 1.2 Total Bilirubin 0.8 mg/dl (0.2-1) Aspartate Amino Transf (AST/SGOT) 31 U/L (15-37) Alanine Aminotransferase (ALT/SGPT) 43 U/L (12-78) Alkaline Phosphatase 122 U/L (45-117) Troponin I 0.028 ng/ml (0-0.045) Pro-B-Type Natriuretic Peptide 9324 pg/ml (0-1800) Total Protein 7.1 gm/dl (6.4-8.2) Albumin 3.3 gm/dl (3.4-5.0) Globulin 3.8 gm/dl (2.5-4.0) Albumin/Globulin Ratio 0.9 (0.9-2) Thyroid Stimulating Hormone (TSH) 7.950 uIu/ml (0.300-4.500) Urine Color YELLOW Urine Appearance CLEAR (CLEAR) Urine pH 6.5 (4.5-7.5) Urine Specific [place] 1.010 (1.000-1.030) Urine Protein NEG (NEG) Urine Glucose (UA) NEG (NEG) Urine Ketones NEG (NEG) Urine Occult Blood NEG (NEG) Urine Nitrite NEG (NEG) Urine Bilirubin NEG (NEG) Urine Urobilinogen NEG (NEG) Urine Leukocyte Esterase NEG (NEG) RDW Standard Deviation 51.5 fL (36.4-46.3) RDW Coefficient of Variation 15.2 % (11.5-14.5) Prothrombin Time 19.3 SECONDS (9.0-12.0) Prothromb Time International Ratio 1.9 (0.9-1.1) Anion Gap 6.0 mmol/L (3-11) Est Creatinine Clear Calc Drug Dose 22.8 ml/min Estimated GFR () 33.1 Estimated GFR (Non- 28.6 BUN/Creatinine Ratio 14.5 (10-20) Calcium Level 8.4 mg/dl (8.5-10.1) Magnesium Level 2.1 mg/dl (1.8-2.4) Last 24 Hours Test 09/10/17 07:27 Sodium Level 136 mmol/L Potassium Level 4.1 mmol/L Chloride Level 97 mmol/L Carbon Dioxide Level 33 mmol/L Anion Gap 6.0 mmol/L Blood Urea Nitrogen 29 mg/dl Creatinine 2.02 mg/dl Est Creatinine Clear Calc Drug Dose 22.8 ml/min Estimated GFR () 33.1 Estimated GFR (Non- 28.6 BUN/Creatinine Ratio 14.5 Random Glucose 97 mg/dl Calcium Level 8.4 mg/dl Magnesium Level 2.1 mg/dl Assessment & Plan 86 yo M presented with weight gain, increased JAMES and LE swelling consistent with acute heart failure exacerbation. 1. Acute on chronic diastolic heart failure exacerbation-likely related to diuretic noncompliance based on outpatient provider recommendations. He has diuresed approximately 10 L since admission with improvement in breathing and LE edema. Rhonchi have also resolved on exam today. Working with nursing to wean oxygen as tolerated. Cardiology plans to add back his PO Lasix now. Monitor renal function for overdiuresis. Metabolic alkalosis already present. TTE this admission reveals normal systolic function and diastolic dysfunction. 2. Paroxysmal atrial fibrillation-currently in sinus rhythm. Warfarin was stopped after PM interrogation revealed no episodes of afib. 3. HTN-on amlodipine and Metoprolol of which amlodipine was recently started within 2-3 weeks. This may have also contributed to some LE swelling. Will need to be followed as outpatient. Inpatient BP is controlled. 4. CAD s/p CABG-stable, cont medical management including ASA, Toprol XL and Lipitor. 5. CKD Stage III-renal function at baseline. 6. DMII-Diet controlled. A1C recently was 6.1. 7. IBD-pt denies that he has CD or UC and states he doesn't know what drugs he is taking and why because a nurse helps him with this. We discussed that his mesalamine is NF and will need to be brought in. His response was that he was leaving soon and felt he could be without it for a couple of days. 8. Hypothyroidism-TSH slightly elevated, however, he reports initiating therapy just two months ago. Would adjust Synthroid as outpatient. Cont current dose. DVT PROPHYLAXIS: coumadin Full Code Dispo-likely to home tomorrow. Of note, pt lives alone. PT OT feels ok to return home. Will be monitored closely by outpatient Sr Technical Sales Consultant. [facility] Hospitalist Consultants: Krzysztof Current Inpatient Medications: Current Inpatient Medications Medications (Trade) Dose Ordered Sig/Avinash Route Start Time Stop Time Status Last Admin Dose Admin Acetaminophen (Tylenol Tab) 650 mg Q4H PRN PO 09/08/17 15:30 10/08/17 15:29 Nitroglycerin (Nitrostat Tab) 0.4 mg UD PRN SL 09/08/17 15:30 10/08/17 15:29 Polyethylene (Miralax Powder Packet) 17 gm DAILY PRN PO 09/08/17 15:30 10/08/17 15:29 Amiodarone HCl (Cordarone Tab) 200 mg DAILY PO 09/09/17 09:00 10/09/17 08:59 09/10/17 08:40 200 MG Aspirin (Ecotrin Tab) 81 mg DAILY PO 09/09/17 09:00 10/09/17 08:59 09/10/17 08:40 81 MG Atorvastatin Calcium (Lipitor Tab) 40 mg DAILY PO 09/09/17 09:00 10/09/17 08:59 09/10/17 08:40 40 MG Levothyroxine Sodium (Synthroid Tab) 12.5 mcg DAILYBB PO 09/09/17 06:00 10/09/17 06:59 09/10/17 07:11 12.5 MCG Metoprolol Succinate (Toprol Xl Tab) 50 mg BID PO 09/08/17 21:00 10/08/17 20:59 09/10/17 08:40 50 MG Ferrous Sulfate (Feosol Tab) 325 mg BID PO 09/08/17 21:00 10/08/17 20:59 09/10/17 08:40 325 MG Miscellaneous Information (Order Awaiting Action) 1 ea QS N/A 09/09/17 00:00 10/09/17 00:00 09/10/17 08:00 1 EA Amlodipine Besylate (Norvasc Tab) 5 mg DAILY PO 09/09/17 09:00 10/09/17 08:59 09/10/17 08:40 5 MG Potassium Chloride (Klor-Con Tab) 40 meq BID17 PO 09/09/17 17:00 10/09/17 08:59 09/10/17 17:18 40 MEQ Furosemide (Lasix Tab) 60 mg BID17 PO 09/10/17 17:00 10/10/17 16:59 09/10/17 17:19 60 MG
[2017-09-11] VITALS (7 sets, daily range): BP systolic 120–133; BP diastolic 56–64; PULSE 59–75; TEMP 36.3–36.7; O2SAT 91–96
[2017-09-11] MEDS: LEVOTHYROXINE 25 MCG TAB PO SCH (05:55)
[2017-09-11] MEDS: [UNRECOGNIZED DRUG - OTHER] SCH ×3 (07:30→16:00)
[2017-09-11] MEDS: ASPIRIN 81 MG ECTAB PO SCH (07:32)
[2017-09-11] MEDS: AMIODARONE 200 MG TAB PO SCH (07:32)
[2017-09-11] MEDS: FERROUS SULFATE 325 MG TAB PO SCH (07:32)
[2017-09-11] MEDS: METOPROLOL SUCC 50MG EXT REL TAB PO SCH (07:33)
[2017-09-11] MEDS: POTASSIUM CHLORIDE 20 MEQ TABCR PO SCH (07:33)
[2017-09-11] MEDS: ATORVASTATIN 40 MG TAB PO SCH (07:33)
[2017-09-11] MEDS: FUROSEMIDE 40 MG TAB PO SCH (07:33)
[2017-09-11] MEDS: AMLODIPINE BESYLATE 5 MG TAB PO SCH (07:33)
[2017-09-11 07:44] LABS: CALCIUM 8.5 mg/dl (8.5-10.1); CREATININE 2.51 mg/dl (0.60-1.40); POTASSIUM 4.5 mmol/L (3.5-5.1)
--- NOTE | 2017-09-11 10:07 | Cardiology Follow-Up ---
Subjective Subjective Date of Service: Sep 11, 2017. Pt evaluation today including: conversation w/ patient, physical exam, chart review, lab review, review of studies, review of inpatient medication list Additional Details: Pt seen and examined, states that he feels great. He's now back to his baseline and without complaint. LE edema resolved. Denies cp, sob, palpitations, lightheadedness or dizziness. Tele reviewed: Problem List Medical Problems: (1) Cardiac arrest Status: Acute (2) Dyspnea Status: Acute (3) Elevated troponin Status: Acute (4) Elevated troponin Status: Acute (5) Encounter for removal of sutures Status: Acute (6) Facial laceration Status: Acute (7) Hypoxia Status: Acute (8) Lower extremity edema Status: Acute (9) Pneumonia Status: Acute (10) Precordial chest pain Status: Acute (11) Pulmonary edema Status: Acute (12) Respiratory arrest Status: Acute (13) Shortness of breath Status: Acute (14) SIRS (systemic inflammatory response syndrome) Status: Acute (15) Tachycardia Status: Acute (16) Tick bite Status: Acute Review of Systems Respiratory: + cough, + sputum, + shortness of breath, No see HPI, No wheezing , No dyspnea on exertion, No dyspnea at rest, No hemoptysis, No problem reported Cardiac: + edema, No see HPI, No chest pain, No orthopnea, No PND, No claudication, No palpitations, No problem reported Musculoskeletal: + joint pain Male : + hematuria Objective Vital Signs Last Vital Signs Documentation Date Time Temp Pulse Resp B/P (MAP) Pulse Ox O2 Delivery O2 Flow Rate FiO2 09/11/17 08:16 96 Nasal Cannula 2.0 09/11/17 08:06 36.7 75 18 120/60 (80) Physical Exam: General Appearance: WD/WN, no apparent distress Eyes: bilateral eyes normal inspection, bilateral eyes PERRL, bilateral eyes EOMI ENT: normal ENT inspection, hearing grossly normal, pharynx normal Neck: supple, no adenopathy, thyroid normal, no JVD, no carotid bruits, trachea midline Respiratory/Chest: chest non-tender, lungs clear, normal breath sounds, no respiratory distress, no accessory muscle use Cardiovascular: regular rate, rhythm, no edema, no JVD, + systolic murmur (3/6 mid to late jovanni, rsb, 2nd ics with radiation to carotids), + gallop/S4 Abdomen: normal bowel sounds, non tender, soft, no organomegaly, no pulsatile mass Extremities: normal inspection, no calf tenderness, + swelling (trace LE edema) Neurologic/Psychiatric: telecom coordinator II-XII nml as tested, no motor/sensory deficits, alert, normal mood/affect, oriented x 3 Skin: normal color, warm/dry, no rash Lymphatic: no adenopathy Assessment and Plan 1. acute decompensated diastolic heart failure has had a very significant diuresis, approx 10L clinically feeling well Ok to d/c to home with lasix 60mg po daily with an additional dose prn KCl 40 meq daily cont metoprolol succinate my office will call to arrange CHF clinic f/u in 1 week 2. chronic GI bleed device interrogated and no episodes of Afib coumadin d/c'ed risks/benefits discussed with patient and he is in agreement cont amio f/u as outpatient
--- NOTE | 2017-09-11 12:31 | Clinical Documentation Query ---
NICHELLE Hernandez : CLINICAL DOCUMENTATION QUERY Patient is an 86 year old male admitted for treatment of acute on chronic diastolic CHF. Documented history of CKD stage 3. He has been treated with IV diuretics and today's labs (09/11) demonstrate values of 44 mg/dl and 2.51 mg/dl. Serum creatinine on admission was 1.79 mg/dl. Estimated GFR declined by 33%. In your clinical opinion is this patient being managed for: ( x ) Acute kidney failure ( ) Not Agree ( ) Other explanation of clinical findings (Please Explain) ( ) Unable to determine (Please Define) ( ) Need to Discuss The medical record reflects the following clinical findings, treatment, and risk factors. Clinical Indicators: As above, overdiuresis, metabolic alkalosis. Treatment: IV to PO Lasix, serial chemistries. Risk Factors: Diuresis of approximately 10L per attending and cardiology. Please clarify and document your clinical opinion in the progress notes and discharge summary. Terms such as "probable", "suspected", "likely", "questionable", "possible", or "still to be ruled out" are acceptable. IF IN AGREEMENT, YOU MUST DOCUMENT ABOVE DIAGNOSTIC STATEMENT IN DAILY PROGRESS NOTES AND DISCHARGE SUMMARY. This document is not part of the patient's record. Thank You, Shayan Massey, MOLLY [phone]
[2017-09-11] MEDS ORDERED: LSX20 PO (16:49)
--- NOTE | 2017-09-11 16:59 | Discharge Summary ---
Discharge Summary Date of Service Sep 11, 2017. Discharge Summary Admission Date: Sep 08, 2017 at 15:18 Discharge Date: Sep 11, 2017 Discharge Disposition: Home with services Principal Diagnosis: Acute on chronic diastolic heart failure exacerbation-likely related to diuretic noncompliance based on outpatient provider recommendations Paroxysmal atrial fibrillation-resolved HTN CAD s/p CABG CKD Stage III DMII. IBD Hypothyroidism Procedures: TTE: * Normal LV chamber size with mild concentric LVH. * Normal LV systolic function, with abnormal septal wall motion consistent with RV pacing, otherwise, normal wall motion, EF 50-55%. * Diastolic dysfunction is present given left atrial enlargement. 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 * Moderate MAC with mild mitral regurgitation. * Mild tricuspid regurgitation. * Severe left atrial enlargement. * Compared to previous study of 03/03, LV systolic function has improved, otherwise, unchanged. Vaccinations: None. Consultations: Pedro-Corey Pending Studies/Follow-Up: see instructions below. Medication Reconciliation New Medications: Furosemide (Furosemide) 20 Mg Tab 60 MG PO DAILY for 30 Days, #90 TAB Continued Medications: Amiodarone Hcl (Cordarone) 200 Mg Tab 200 MG PO DAILY Amlodipine (Norvasc) 5 Mg Tab 5 MG PO DAILY Aspirin (Aspirin Ec) 81 Mg Tab 81 MG PO DAILY Atorvastatin (Lipitor) 40 Mg Tab 40 MG PO DAILY Clindamycin Hcl (Cleocin) 300 Mg Cap 600 MG PO UD TAKE 2 CAPS BY MOUTH ONE HOUR PRIOR TO PROCEDURE Desonide 0.05% (Desowen 0.05%) 60 Gm Cr 1 APPLN TOP BID Ferrous Sulfate (Kp Ferrous Sulfate) 325 Mg Tab 1 TAB PO BID Hydrocortisone (Topical) (Hydrocortisone) 2.5 % Lot 1 APPLN TOP BID Levothyroxine Sodium (Levothyroxine Sodium) 25 Mcg Tab 0.5 TAB PO QAM Mesalamine (Lialda) 1.2 Gm Tab 1.2 GM PO BID Metoprolol Succinate (Toprol Xl) 25 Mg Tab 50 MG PO BID Nitroglycerin (Nitrostat) 0.4 Mg Tab 0.4 MG UT UD PRN for Chest Pain PLACE ONE TABLET UNDER THE TONGUE EVERY 5 MINUTES FOR UP TO 3 DOSES IF NEEDED FOR CHEST PAIN Potassium Chloride Microencaps (Potassium Chloride Er) 20 Meq Tab 20 MEQ PO DAILY Discontinued Medications: Furosemide (Lasix) 20 Mg Tab 0.5 TAB PO DAILY Warfarin Sodium (Warfarin Sodium) 5 Mg Tab 0.5 TAB PO QPM OR DIRECTED BY ANTICOAGULATION CLINIC. Admission Information HPI (per Admitting provider): Pt is 86 y/o M with PMH CHF, CABG, TAVR, a-fib, sick sinus syndrome, heart block , pacemaker, chronic anemia, CKD, inflammatory bowel disease presented to ER from taper and floater office for LE edema and SOB. Pt follows with [facility]iology. Pt reports a couple of weeks ago had UTI and his Lasix was held. He states was on 40-60mg lasix daily in the past. Couple of days ago lasix restarted at 10mg daily. Amlodipine was added on 08/22/17 for BP. He does not use home oxygen. Reports past 2 weeks with increased LE edema and increased exertional SOB. Past week with SOB with tying his shoes. Pt with 6 pound weight gain from 08/13/17 noted on out pt notes. Denies cough, CP, orthopnea, PND. Denies fever/chills, diaphoresis, N/V/D/C, ANDERSON, dizziness, syncope, vision changes, neck pain, palpitations, choking,abdominal pain, paresthesias, dysuria, hematuria. Hx echo 06/08/16 - EF: 55-60% Physical Exam (per Admitting): General Appearance: WD/WN, no apparent distress Head: normocephalic, atraumatic Eyes: normal inspection, PERRL, EOMI, sclerae normal ENT: hearing grossly normal, pharynx normal, + pertinent finding (mucous membranes moist) Neck: supple, no adenopathy, trachea midline Respiratory/Chest: chest non-tender, no respiratory distress, no accessory muscle use, + rales (bilateral bases), + pertinent finding (on 2L O2 via NC and able to talk in sentences) Cardiovascular: regular rate, rhythm, + systolic murmur Abdomen/GI: normal bowel sounds, non tender, soft Back: no CVA tenderness Extremities/Musculoskelatal: non-tender, + pertinent finding (+bilateral pretibial edema +3) Neurologic/Psych: alert, normal mood/affect, oriented x 3 Skin: normal color, warm/dry Hospital Course The patient is an 86 year old white male with a past medical history of CHF, CKD , CVA, DM, Dyslipidemia, bladder cancer, HTN, HLD, pacemaker, A-fib, ORIF, AVR, CABG, and TURP who presents to the ED with a cc of worsening shortness of breath beginning a few weeks ago which is worsened with bending over and walking. Patient does have known history of CABG, Amy, and pacemaker placement. Patient has had some worsening exertional dyspnea and orthopnea. Patient was complaining of some baseline shortness of breath which is new. Per Dr. Gomez the patient's weight between visits has increased 13 pounds, and he appeared volume overloaded on exam. He was given 40 of IV Lasix. Patient was also given some sublingual nitro. No BiPAP was initially started. Patient' s EKG did show left bundle branch block pattern with T-wave inversions that were essentially unchanged from prior. Patient did have an elevated BNP at greater than 9000. Troponin was not elevated. Patient does have CK D that was essentially at baseline. His chest x-ray did show some pleural effusions. Patient was admitted to the medicine service. Cardiology was consulted and increased his Lasix to 80mg IV BID with approx 10 L out in 48 hours. Pacemaker was interrogated and based on the absence of afib episodes, he was taken off the coumadin. He had an improvement in breathing symptoms and was feeling well. As a result of his aggressive diuresis, however, his creatinine bumped from baseline of 1.8 to 2.5. He was strongly encouraged to stay another day to correct this but declined and left in stable condition with instructions to hold his diuretics for at least two days and repeat BMP as outpatient. On day of discharge he was mentating and ambulating at baseline and was hemodynamically stable and tolerating PO. He was discharged in fair condition with close PCP follow-up. Total time spent on discharge = 60 minutes This includes examination of the patient, discharge planning, medication reconciliation, and communication with other providers. Discharge Instructions [address] [place] [address] Discharge Medical Patient Name: James Bills Unit Number: [id number] Date of : 1930 Patient Status: Admitted Inpatient Attending Doctor: Marnie Mederos DO DI: Medical v4 Discharge Instructions Date of Service Sep 11, 2017. Admission Reason for Admission: Chf Exacerbation Discharge Discharge Diagnosis / Problem: CHF exacerbation, acute kidney injury Discharge Goals Goal(s): Therapeutic intervention, Prevent Disease Progression Activity Recommendations Activity Limitations: per Instructions/Follow-up section . Instructions / Follow-Up Instructions / Follow-Up Please take all medications as instructed. Remember to hold off taking any LASIX for two days (OK to start on 09/14 or as otherwise instructed by a physician). Please note that WARFARIN was stopped. You have a follow-up appointment with Dr. Blandon at [facility] (Dr. Bañuelos was not available) on Friday, 09/15 @ 11:00am. This is very important as a follow- up from this hospitalization and to review the labwork you will get on Friday. You were given a prescription to get labwork done on Friday. You do not have to fast for this. You have an appointment with [facility] at [facility] to see Dr. Nicole on 09/19 @ 2:30pm. It was a pleasure taking care of you! Call if you have any questions or problems. You can reach a [facility] hospitalist on duty at [facility] 24 hours a day by calling [phone]. Take care of yourself. Marnie Mederos, [facility] Current Hospital Diet Patient's current hospital diet: AHA Diet (Heart Healthy) Discharge Diet Recommended Diet: AHA Diet (Heart Healthy) Procedures Procedures Performed: None. Pending Studies Studies pending at discharge: no Medical Emergencies . Who to Call and When: Medical Emergencies: If at any time you feel your situation is an emergency, please call 911 immediately. . Non-Emergent Contact Non-Emergency issues call your: Primary Care Provider, Public Health Epidemiologist . . "Provider Documentation" section prepared by Marnie Mederos. . VTE Core Measure Inpt VTE Proph given/why not?: Warfarin (Coumadin) Additional Copies To Melo Bañuelos III, M.D. Keiter, Carey K.,DO
[2017-09-12] MEDS ORDERED: POTASSIUM CHLORIDE 20 MEQ TABCR PO SCH (09:00)
[2017-09-12] MEDS ORDERED: FUROSEMIDE 20 MG TAB PO SCH (09:00)
== END 2017-09-11 17:40 | disposition home or self-care (01) | DRG 291 ==
LOC: EDBD 12:46 → C.EDC 12:47 → C.2T 15:18 → ENRESERV 15:31
PROVIDERS: ADMIT Internal Medicine; ATTEND Hospitalist
DX: I13.0 Hypertensive heart and chronic kidney disease with heart failure and stage 1 through stage 4 chronic kidney disease, or unspecified chronic kidney disease (principal); I50.43 Acute on chronic combined systolic (congestive) and diastolic (congestive) heart failure; K92.2 Gastrointestinal hemorrhage, unspecified; N18.3 Chronic kidney disease, stage 3 (moderate); E11.22 Type 2 diabetes mellitus with diabetic chronic kidney disease; E78.5 Hyperlipidemia, unspecified; I48.0 Paroxysmal atrial fibrillation; E03.9 Hypothyroidism, unspecified; Z79.01 Long term (current) use of anticoagulants; Z79.82 Long term (current) use of aspirin; Z79.899 Other long term (current) drug therapy; Z86.73 Personal history of transient ischemic attack (TIA), and cerebral infarction without residual deficits; Z88.0 Allergy status to penicillin; Z95.0 Presence of cardiac pacemaker; Z95.1 Presence of aortocoronary bypass graft; Z95.2 Presence of prosthetic heart valve